=== PATIENT | male | born 1945 | race Caucasian/White ===

== ENCOUNTER 2018-08-16 06:27 | Inpatient (IN) ==
[2018-08-16] MEDS ORDERED: Ondansetron 4 MG/2 ML VIAL IVP ONE ×2 (06:44→17:58)
--- NOTE | 2018-08-16 06:48 | Emergency Department Note ---
Disposition Clinical Impression: Kidney stone on left side UTI (urinary tract infection) Qualifiers: Urinary tract infection type: site unspecified Hematuria presence: with hematuria Qualified Code(s): N39.0 - Urinary tract infection, site not specified; R31.9 - Hematuria, unspecified Acute renal failure Qualifiers: Acute renal failure type: unspecified Qualified Code(s): N17.9 - Acute kidney failure, unspecified Disposition: Admitted As Inpatient Condition: Good Referrals: NONE,PCP [Primary Care Provider] - Forms: ED Satisfaction Letter, Work/School Release General Adult HPI - General Chief complaint: ED Abdominal Pain Stated complaint: left side abdominal pain hx of kidney stones Time Seen by Provider: 08/16/18 06:31 Source: patient Limitations: no limitations Nursing Notes Reviewed: Yes Vital Signs Reviewed: Yes - History of Present Illness HPI Narrative: 73-year-old male presents with hematuria and left abdominal pain. He noticed some blood in urine a week ago. He started left flank and abdominal pain last night. He felt nausea and vomited once this morning. Pt also reported decreasing urine out put. Not chills and fever. Pt has history of kidney stone. Not sure when was last time. He made appointment with Dr. Denney in Thursday. Patient has a history of diabetes and Atrovent fibrillation and sciatica. Patient is on blood thinner Xarelto. Patient took a one dose of hydrocodone one hour before came to ED. Onset (ago): week(s) (1) Location: abdomen, left Pain Scale: 8 - Related Data Home Medications Medication Instructions Recorded Confirmed Alfuzosin HCl [Uroxatral] 10 mg PO DAILY 12/23/14 08/24/15 Carvedilol [Coreg] 12.5 mg PO DAILY 12/23/14 08/24/15 Citalopram [CeleXA] 10 mg PO DAILY 12/23/14 08/24/15 Ezetimibe [Zetia] 10 mg PO DAILY 12/23/14 08/24/15 Ferrous Sulfate 325 mg PO DAILY 12/23/14 08/24/15 HYDROcodone/Acet 5/325 mg [[place] 1 tab PO Q4HR PRN 12/23/14 08/24/15 5-325 mg] Insulin DETEMIR [Levemir] 20 unit SQ QAM 12/23/14 08/24/15 Lisinopril [Zestril] 5 mg PO DAILY 12/23/14 08/24/15 Potassium Chloride 15 meq PO Q8HR 12/23/14 08/24/15 Rivaroxaban [Xarelto] 20 mg PO QPM 12/23/14 08/24/15 [place] Oil/[place]-3 Fatty Acids 2,400 mg PO BID 12/23/14 08/24/15 [Fish Oil 500 mg Softgel] Finasteride [Proscar] 5 mg PO QPM 03/23/15 08/24/15 Insulin LISPRO [HumaLOG] 0 - 50 units SQ TIDWM 03/23/15 08/24/15 Previous Rx's Medication Instructions Recorded OxyCODONE/APAP 5/325 [Percocet 1 each PO Q6HR PRN #12 tablet 01/15/16 5/325 MG] Lidocaine Patch [Lidoderm 5% patch] 1 each TP DAILY #10 adh..patch 03/29/18 Allergies Allergy/AdvReac Type Severity Reaction Status Date / Time adhesive tape Allergy Rash Verified 02/21/15 18:14 atorvastatin [From Lipitor] Allergy Dizziness Verified 12/22/14 21:22 Iodinated Contrast- Oral and Allergy Difficulty Verified 02/21/15 18:14 IV Dye Breathing [Iodinated Contrast Media - IV Dye] Constitutional: Denies: fever, chills Eyes: Denies: eye pain ENT ED: Denies: ear pain Cardiovascular: Denies: chest pain Respiratory: Denies: cough Gastrointestinal: Reports: abdominal pain, nausea Genitourinary: Denies: urgency Musculoskeletal: Reports: back pain Integumentary: Denies: rash Neurological: Denies: headache Psychiatric: Denies: anxiety Endocrine: Denies: fatigue Hematological/Lymphatic: Denies: easy bleeding Allergic/Immunologic: Denies: facial swelling Past Medical History - Past Medical History Medical history: Reports: CVA, DVT, diabetes, hyperlipidemia, hypertension, kidney stones, TIA Surgical history: Reports: appendectomy, bariatric surgery, cholecystectomy, herniorrhaphy, orthopedic, other Psychiatric history: Reports: no psych history - Social History Smoking Status: Never smoker Smokeless Tobacco Status: No Alcohol use: Reports: none Drug use: Reports: none Physical Exam - General Limitations: no limitations General appearance: alert, in no apparent distress - Head Head exam: atraumatic - Eye Eye exam: Present: normal appearance - ENT ENT exam: normal exam - Neck Neck exam: Present: normal inspection - Chest Chest inspection: Present: normal inspection - Respiratory Respiratory exam: Present: normal lung sounds bilaterally - Cardiovascular Cardiovascular exam: Present: regular rate - Abdominal Exam Abdominal exam: Present: soft, tenderness Abdominal tenderness: Present: LUQ - Extremities Exam Extremities exam: Present: normal inspection, full ROM. Absent: tenderness - Back Exam Back exam: Present: normal inspection, CVA tenderness (L) - Neurological Exam Neurological exam: Present: alert, oriented X3 - Psychiatric Psychiatric exam: Present: normal affect - Skin Skin exam: Present: warm, intact Course Vital Signs Temperature 97.1 F L 08/16/18 06:32 Pulse Rate 77 08/16/18 06:32 Respiratory Rate 18 08/16/18 06:32 Blood Pressure 145/81 08/16/18 06:32 O2 Sat by Pulse Oximetry 100 08/16/18 06:32 Temperature 97.1 F L 08/16/18 06:32 Pulse Rate 77 08/16/18 06:32 Respiratory Rate 18 08/16/18 06:32 Blood Pressure 145/81 08/16/18 06:32 O2 Sat by Pulse Oximetry 100 08/16/18 06:32 Oxygen Delivery Oxygen Delivery Room Air Medical Decision Making - [facility] Narrative Medical decision making narrative: 73-year-old male history of kidney stone, A-fib, diabetes, sciatica presents wit h hematuria and left flank pain. Patient reported a hematuria for a week started left flank and upper abdominal pain yesterday. Nausea and vomiting this morning. No chills and fever. Physical exam: Afebrile, abdomen soft, left upper quadrant tender to palpation, left CVA tender to percussion. Abdomen CT indicated a 47 mm kidney stone in left distal urethral. UA indicated large amount of blood and moderate leukocyte. Labs: White cell normal, cr. 2.[address] Shukla. He suggest to admit patient to medical floor and NPO from now, possible surgery. Blood culture, antibiotics and IV fluids started in ED. Patient will be admitted to hospital for kidney stone, UTI, acute renal injury. Dr. Bowen has seen the patient and agrees the above plan. - Lab Data Lab results reviewed: Yes I reviewed the patient's lab results. Result diagrams: 08/16/18 06:42 08/16/18 06:42 Lab Results 08/16/18 08/16/18 08/16/18 Range/Units 06:42 06:42 06:56 WBC 10.8 (4.3-11.1) K/mcL RBC 4.04 L (4.19-5.50) M/mcL Hgb 12.2 L (12.9-16.9) g/dL Hct 38.2 (37.5-50.1) % MCV 94.6 (83.0-100.0) fL MCH 30.2 (28.0-33.3) pg MCHC 31.9 (31.6-35.5) g/dL RDW 16.2 H (11.5-14.5) % Plt Count 242 (140-400) K/mcL MPV 11.1 (9.4-12.4) fL Immature Gran % 0.4 (0-4) % Seg Neutrophils % 45.3 % Lymphocytes % 43.9 % Monocytes % 7.8 % Eosinophils % 2.0 % Basophils % 0.6 % Neutrophils # 4.9 (1.6-8.9) K/mcL Lymphocytes # 4.7 H (0.6-4.6) K/mcL Monocytes # 0.8 (0.0-1.3) K/mcL Eosinophils # 0.2 (0.0-0.6) K/mcL Basophils # 0.1 (0.0-0.2) K/mcL Sodium 137 (136-145) mEq/L Potassium 5.1 (3.5-5.1) mEq/L Chloride 108 H (98-107) mEq/L Carbon Dioxide 20 L (23-29) mEq/L BUN 30 H (8-23) mg/dL Creatinine 2.22 H (0.70-1.30) mg/dL Est GFR ( Amer) 35 L (> 60) Est GFR (Non-Af Amer) 29 L (> 60) BUN/Creatinine Ratio 14 (6-26) Glucose 144 H (70-105) mg/dL Calculated Osmolality 293 (280-300) Calcium 9.0 (8.6-10.3) mg/dL Total Bilirubin 0.5 (0.3-1.0) mg/dL AST 18 (13-39) Units/L ALT 10 (7-52) Units/L Alkaline Phosphatase 84 (34-104) Units/L Serum Total Protein 6.5 (6.4-8.9) g/dL Albumin 3.7 (3.5-5.7) g/dL Globulin 2.8 (2.4-3.5) g/dL Albumin/Globulin Ratio 1.3 (1.1-2.2) Lipase < 3 L (11-82) Units/L Urine Color Yellow (Yellow) Urine Clarity Cloudy A (Clear) Urine pH 5.5 (5.0-8.0) pH Units Ur Specific [place] 1.016 (1.010-1.025) Urine Protein Negative (Neg-Trace) mg/dL Urine Glucose (UA) Normal (Normal) mg/dL Urine Ketones Negative (Negative) mg/dL Urine Blood Large H (Negative) Urine Nitrite Negative (Negative) Urine Bilirubin Negative (Negative) Urine Urobilinogen Normal (Normal) mg/dL Ur Leukocyte Esterase Moderate H (Negative) Urine Microscopic RBC 15-30 H (0-3) per hpf Urine Microscopic WBC 15-30 H (0-3) per hpf Ur Squamous Epith Cells Moderate H (None-Few) per lpf Urine Bacteria None Seen (None-Few) per hpf Hyaline Casts None Seen (None-Few) per lpf Ur Culture Indicated? YES A (NO) - Radiology Data Radiology results reviewed: Yes I reviewed the patient's radiology results. TECHNIQUE: CT of the abdomen and pelvis was performed without the administration of intravenous contrast. Multiplanar reformatted images are provided for review. Dose modulation, iterative reconstruction, and/or weight based adjustment of the mA/kV was utilized to reduce the radiation dose to as low as reasonably achievable. COMPARISON: Abdominal/pelvic CT, 08/11/2013 HISTORY: ORDERING SYSTEM PROVIDED HISTORY: left flank pain 2 week history of hematuria and pain on the left side. History of stones. Acute symptoms, initial evaluation. FINDINGS: The visualized lung bases are clear. The visualized cardiac and posterior mediastinal structures are unremarkable. Within the abdomen, the liver, spleen, pancreas and adrenal glands are within normal limits. Postsurgical changes seen involving the stomach likely related to gastric bypass. Cholecystectomy has been performed. No obvious free fluid, free air or lymphadenopathy is identified. The abdominal aorta is normal in caliber with minor atherosclerotic calcifications. There is mild left-sided hydronephrosis and hydroureter. There is a distal left ureteral stone seen on image 217 measuring 4 x 7 mm. No right-sided hydronephrosis, hydroureter or ureterolithiasis. There are approximately 3 punctate 1 mm nonobstructing right kidney stones. There are approximately 5 punctate 1-2 mm nonobstructing left kidney stones. Within the pelvis, the urinary bladder is within normal limits. Evaluation of the pelvis is limited by beam hardening artifact from right total hip arthroplasty. No gross abnormality of the prostate or seminal vesicles is identified. The appendix is not clearly visualized but no focal inflammatory changes are seen near the cecum to suggest acute appendicitis. CT/CT abd pelvis wo no iv no oral IMPRESSION: 4 x 7 mm distal left ureteral stone with moderate left-sided hydroureteronephrosis. Multiple 1-2 mm nonobstructing bilateral kidney stones are also identified as described above. Incidental findings include postsurgical changes involving the stomach, previous cholecystectomy, minor atherosclerotic abdominal aortic calcification and previous right total hip arthroplasty. D/ / Jose Brown MD / Jose Brown MD Interpreting Provider: Jose Brown MD
[2018-08-16] MEDS ORDERED: Ketorolac 15 MG/ML VIAL IVP ONE (06:57)
[2018-08-16 07:04] LABS: Basophils # 0.1 K/mcL (0.0-0.2); Basophils % 0.6 %; Eosinophils # 0.2 K/mcL (0.0-0.6); Hematocrit 38.2 % (37.5-50.1); Hemoglobin 12.2 g/dL (12.9-16.9); Immature Granulocytes % 0.4 % (0-4); Lymphocytes # 4.7 K/mcL (0.6-4.6); Lymphocytes % 43.9 %; Mean Corpuscular HGB Conc 31.9 g/dL (31.6-35.5); Mean Corpuscular Hemoglobin 30.2 pg (28.0-33.3); Mean Corpuscular Volume 94.6 fL (83.0-100.0); Mean Platelet Volume 11.1 fL (9.4-12.4); Monocytes # 0.8 K/mcL (0.0-1.3); Monocytes % 7.8 %; Neutrophils # 4.9 K/mcL (1.6-8.9); Platelet Count 242 K/mcL (140-400); Red Blood Count 4.04 M/mcL (4.19-5.50); Red Cell Distribution Width 16.2 % (11.5-14.5); Segmented Neutrophils % 45.3 %
[2018-08-16 07:17] LABS: Bilirubin,Urine Negative (Negative); Blood,Urine Large (Negative); Clarity,Urine Cloudy (Clear); Color,Urine Yellow (Yellow); Glucose,Urine (UA) Normal (Normal); Ketones,Urine Negative (Negative); Leukocyte Esterase,Urine Moderate (Negative); Nitrite,Urine Negative (Negative); PH,Urine 5.5 pH Units (5.0-8.0); Protein,Urine Negative (Neg-Trace); Specific Gravity,Urine 1.016 (1.010-1.025); Urobilinogen,Urine Normal (Normal)
[2018-08-16 07:20] LABS: Bacteria,Urine None Seen per hpf (None-Few); Hyaline Casts,Urine None Seen per lpf (None-Few); RBC,Urine 15-30 per hpf (0-3); Squamous Epithelial Cell,Urine Moderate per lpf (None-Few); WBC,Urine 15-30 per hpf (0-3)
[2018-08-16 07:21] LABS: Alanine Aminotransferase 10 Units/L (7-52); Albumin 3.7 g/dL (3.5-5.7); Albumin/Globulin Ratio 1.3 (1.1-2.2); Alkaline Phosphatase 84 Units/L (34-104); Aspartate Amino Transferase 18 Units/L (13-39); BUN/Creatinine Ratio 14 (6-26); Bilirubin,Total 0.5 mg/dL (0.3-1.0); Blood Urea Nitrogen 30 mg/dL (8-23); Carbon Dioxide 20 mEq/L (23-29); Chloride 108 mEq/L (98-107); Globulin 2.8 g/dL (2.4-3.5); Glucose 144 mg/dL (70-105); Lipase < 3 Units/L (11-82); Osmolality,Calculated 293 (280-300); Potassium 5.1 mEq/L (3.5-5.1); Sodium 137 mEq/L (136-145); Total Protein 6.5 g/dL (6.4-8.9); eGFR For Non-African Americans 29 (> 60)
--- NOTE | 2018-08-16 07:24 | Emergency Department Note ---
Disposition Clinical Impression: Left flank pain Disposition: Still a Patient Forms: ED Satisfaction Letter, Work/School Release General Adult HPI - General Chief complaint: ED Abdominal Pain Stated complaint: left side abdominal pain hx of kidney stones Time Seen by Provider: 08/16/18 06:31 Source: patient Limitations: no limitations Nursing Notes Reviewed: Yes Vital Signs Reviewed: Yes - History of Present Illness HPI Narrative: ED attending attestation note: I examined this patient and my medical decision-making was reviewed with the emergency nurse practitioner ADELA ABBOTT. I agree with the documented findings, disposition and treatment plan as described except to the extent set forth below. Briefly: 71-year-old 1 week of left-sided flank pain intermittent hematuria had a kidney stone but does remember the last time abdomen surgically benign afebrile with stable vital signs is afebrile. Patient getting noncontrast abdominal pelvic CT to exclude nephrolithiasis number surgical intra-abdominal pathology. Patient was given parenteral Toradol. at bedside ED course has been explained questions answered. Disposition pending. Location: abdomen, left Pain Scale: 8 - Related Data Home Medications Medication Instructions Recorded Confirmed Alfuzosin HCl [Uroxatral] 10 mg PO DAILY 12/23/14 08/24/15 Carvedilol [Coreg] 12.5 mg PO DAILY 12/23/14 08/24/15 Citalopram [CeleXA] 10 mg PO DAILY 12/23/14 08/24/15 Ezetimibe [Zetia] 10 mg PO DAILY 12/23/14 08/24/15 Ferrous Sulfate 325 mg PO DAILY 12/23/14 08/24/15 HYDROcodone/Acet 5/325 mg [[place] 1 tab PO Q4HR PRN 12/23/14 08/24/15 5-325 mg] Insulin DETEMIR [Levemir] 20 unit SQ QAM 12/23/14 08/24/15 Lisinopril [Zestril] 5 mg PO DAILY 12/23/14 08/24/15 Potassium Chloride 15 meq PO Q8HR 12/23/14 08/24/15 Rivaroxaban [Xarelto] 20 mg PO QPM 12/23/14 08/24/15 [place] Oil/[place]-3 Fatty Acids 2,400 mg PO BID 12/23/14 08/24/15 [Fish Oil 500 mg Softgel] Finasteride [Proscar] 5 mg PO QPM 11/13/15 04/15/16 Insulin LISPRO [HumaLOG] 0 - 50 units SQ TIDWM 03/23/15 08/24/15 Previous Rx's Medication Instructions Recorded OxyCODONE/APAP 5/325 [Percocet 1 each PO Q6HR PRN #12 tablet 01/15/16 5/325 MG] Lidocaine Patch [Lidoderm 5% patch] 1 each TP DAILY #10 adh..patch 03/29/18 Allergies Allergy/AdvReac Type Severity Reaction Status Date / Time adhesive tape Allergy Rash Verified 02/21/15 18:14 atorvastatin [From Lipitor] Allergy Dizziness Verified 12/22/14 21:22 Iodinated Contrast- Oral and Allergy Difficulty Verified 02/21/15 18:14 IV Dye Breathing [Iodinated Contrast Media - IV Dye] Constitutional: Denies: fever, chills Eyes: Denies: eye pain ENT ED: Denies: ear pain Cardiovascular: Denies: chest pain Respiratory: Denies: cough Gastrointestinal: Reports: abdominal pain, nausea Genitourinary: Denies: urgency Musculoskeletal: Reports: back pain Integumentary: Denies: rash Neurological: Denies: headache Psychiatric: Denies: anxiety Endocrine: Denies: fatigue Hematological/Lymphatic: Denies: easy bleeding Allergic/Immunologic: Denies: facial swelling Past Medical History - Past Medical History Medical history: Reports: CVA, DVT, diabetes, hyperlipidemia, hypertension, kidney stones, TIA Surgical history: Reports: appendectomy, bariatric surgery, cholecystectomy, herniorrhaphy, orthopedic, other Psychiatric history: Reports: no psych history - Social History Smoking Status: Never smoker Smokeless Tobacco Status: No Alcohol use: Reports: none Drug use: Reports: none Physical Exam - General Limitations: no limitations General appearance: alert, in no apparent distress Course Vital Signs Temperature 97.1 F L 08/16/18 06:32 Pulse Rate 77 08/16/18 06:32 Respiratory Rate 18 08/16/18 06:32 Blood Pressure 145/81 08/16/18 06:32 O2 Sat by Pulse Oximetry 100 08/16/18 06:32 Temperature 97.1 F L 08/16/18 06:32 Pulse Rate 77 08/16/18 06:32 Respiratory Rate 18 08/16/18 06:32 Blood Pressure 145/81 08/16/18 06:32 O2 Sat by Pulse Oximetry 100 08/16/18 06:32 Oxygen Delivery Oxygen Delivery Room Air Medical Decision Making - Lab Data Result diagrams: 08/16/18 06:42 08/16/18 06:42 Lab Results 08/16/18 08/16/18 08/16/18 Range/Units 06:42 06:42 06:56 WBC 10.8 (4.3-11.1) K/mcL RBC 4.04 L (4.19-5.50) M/mcL Hgb 12.2 L (12.9-16.9) g/dL Hct 38.2 (37.5-50.1) % MCV 94.6 (83.0-100.0) fL MCH 30.2 (28.0-33.3) pg MCHC 31.9 (31.6-35.5) g/dL RDW 16.2 H (11.5-14.5) % Plt Count 242 (140-400) K/mcL MPV 11.1 (9.4-12.4) fL Immature Gran % 0.4 (0-4) % Seg Neutrophils % 45.3 % Lymphocytes % 43.9 % Monocytes % 7.8 % Eosinophils % 2.0 % Basophils % 0.6 % Neutrophils # 4.9 (1.6-8.9) K/mcL Lymphocytes # 4.7 H (0.6-4.6) K/mcL Monocytes # 0.8 (0.0-1.3) K/mcL Eosinophils # 0.2 (0.0-0.6) K/mcL Basophils # 0.1 (0.0-0.2) K/mcL Sodium 137 (136-145) mEq/L Potassium 5.1 (3.5-5.1) mEq/L Chloride 108 H (98-107) mEq/L Carbon Dioxide 20 L (23-29) mEq/L BUN 30 H (8-23) mg/dL Creatinine 2.22 H (0.70-1.30) mg/dL Est GFR ( Amer) 35 L (> 60) Est GFR (Non-Af Amer) 29 L (> 60) BUN/Creatinine Ratio 14 (6-26) Glucose 144 H (70-105) mg/dL Calculated Osmolality 293 (280-300) Calcium 9.0 (8.6-10.3) mg/dL Total Bilirubin 0.5 (0.3-1.0) mg/dL AST 18 (13-39) Units/L ALT 10 (7-52) Units/L Alkaline Phosphatase 84 (34-104) Units/L Serum Total Protein 6.5 (6.4-8.9) g/dL Albumin 3.7 (3.5-5.7) g/dL Globulin 2.8 (2.4-3.5) g/dL Albumin/Globulin Ratio 1.3 (1.1-2.2) Lipase < 3 L (11-82) Units/L Urine Color Yellow (Yellow) Urine Clarity Cloudy A (Clear) Urine pH 5.5 (5.0-8.0) pH Units Ur Specific [place] 1.016 (1.010-1.025) Urine Protein Negative (Neg-Trace) mg/dL Urine Glucose (UA) Normal (Normal) mg/dL Urine Ketones Negative (Negative) mg/dL Urine Blood Large H (Negative) Urine Nitrite Negative (Negative) Urine Bilirubin Negative (Negative) Urine Urobilinogen Normal (Normal) mg/dL Ur Leukocyte Esterase Moderate H (Negative) Urine Microscopic RBC 15-30 H (0-3) per hpf Urine Microscopic WBC 15-30 H (0-3) per hpf Ur Squamous Epith Cells Moderate H (None-Few) per lpf Urine Bacteria None Seen (None-Few) per hpf Hyaline Casts None Seen (None-Few) per lpf Ur Culture Indicated? YES A (NO)
[2018-08-16] MEDS ORDERED: 0.9 % Sodium Chloride 500 ML IVC ONE (07:45)
[2018-08-16] MEDS ORDERED: *HR* HYDROcodone/Acet 5/325 mg TABLET PO ONE (08:09)
[2018-08-16] MEDS ORDERED: cefTRIAXone 1,000 MG in 0.9 % Sodium Chloride Mini Bag 100 ML IVPB ONE (08:27)
--- NOTE | 2018-08-16 09:15 | Internal Med History&Physical ---
Date of Encounter: 08/16/18 Time of Encounter: 09:14 Internal Medicine - H&P: HPI Chief complaint: left abdominal pain History of present illness: 73-year-old male with history of kidney stones who presents with hematuria and left abdominal pain radiating to his left groin that started last night. He also C/O nausea and vomiting this am and reports blood in urine for several days now. CT shows a 7 mm distal left ureteral calculus hydronephrosis. Urology was consulted for further evaluation and patient was admitted for further evaluation. Past Med Surg Social Fam HX - Past Medical History Medical history: CVA, DVT, diabetes, hyperlipidemia, hypertension, kidney stones, TIA Additional medical history: Current DVT in right leg Psychiatric history: no psych history - Past Surgical History Surgical History: appendectomy, bariatric surgery, cholecystectomy, herniorrhaphy, orthopedic, other Additional surgical history: sigmoidectomy. kidney stone removal - Social History Smoking Status: Never smoker Smokeless Tobacco Status: No Alcohol use: none Drug use: none - Family History Mother Adopted: No Family Member Ethnicity: Non- Living Status: Hx Family Cardiac Disorders: Yes Hx Family Respiratory Disorders: Yes Hx Family Cancer: No Hx Family Endocrine Disorder: Yes Hx Family Neuromuscular Disorders: No Hx Family Neurologic Disorders: Yes Hx Family HEENT Disorders: No Hx Family Autoimmune Disorders: No Internal Medicine - H&P: Meds Ezetimibe [Zetia] 10 mg PO DAILY 12/23/14 [History] Ferrous Sulfate 325 mg PO DAILY 12/23/14 [History] HYDROcodone/Acet 5/325 mg [[place] 5-325 mg] 1 tab PO Q6H PRN 12/23/14 [History] Insulin DETEMIR [Levemir] 30 unit SQ BID 12/23/14 [History] Rivaroxaban [Xarelto] 20 mg PO QPM 12/23/14 [History] [place] Oil/[place]-3 Fatty Acids [Fish Oil 500 mg Softgel] 2,400 mg PO BID 12/23/14 [History] Finasteride [Proscar] 5 mg PO QPM 03/23/15 [History] Ciprofloxacin HCl [Cipro] 500 mg PO DAILY 08/16/18 [History] Ciprofloxacin [Cipro] 500 mg PO BID 3 Days #6 tablet 08/16/18 [Rx] Duloxetine HCl [Cymbalta] 60 mg PO DAILY 08/16/18 [History] Insulin LISPRO [Humalog Kwikpen U-100] 5 - 20 unit SQ TID 08/16/18 [History] Lidocaine Patch [Lidoderm 5% patch] 1 each TP DAILY PRN 08/16/18 [History] Metoprolol [Lopressor] 12.5 mg PO BID 08/16/18 [History] Oxybutynin [Ditropan] 5 mg PO TID PRN #20 tablet 08/16/18 [Rx] Tamsulosin [Flomax] 0.4 mg PO DAILY 08/16/18 [History] Allergy/AdvReac Type Severity Reaction Status Date / Time adhesive tape Allergy Rash Verified 02/21/15 18:14 atorvastatin [From Lipitor] Allergy Dizziness Verified 12/22/14 21:22 Iodinated Contrast- Oral and Allergy Difficulty Verified 02/21/15 18:14 IV Dye Breathing [Iodinated Contrast Media - IV Dye] All Systems PM: A 10-system review of systems was performed and is negative for pertinent findings except as documented above in the HPI. - Constitutional Constitutional: no chills, no fever(s), no night sweats - EENT Eyes: no change in vision, no discharge, no pain, no photophobia Ears: no ear discharge, no ear pain, no tinnitus Nose, mouth and throat: no dysphagia, no nasal discharge, no neck pain, no sore throat - Cardiovascular Cardiovascular ROS IM: no chest pain, no diaphoresis, no dyspnea, no lightheadedness, no palpitations, no syncope - Respiratory Respiratory: no cough, no dyspnea, no wheezing, no excessive phlegm production - Gastrointestinal Gastrointestinal: abdominal pain, nausea, vomiting, no diarrhea, no hematemesis, no hematochezia, no melena - Genitourinary Genitourinary ROS male: as per HPI - Musculoskeletal Musculoskeletal ROS IM: no numbness, no tingling - Integumentary Integumentary IM: no rash, no unusual bruising - Neurological Neurological ROS: no confusion, no convulsions, no focal weakness, no numbness, no tingling, no tremor(s) - Hematologic/Lymphatic Hematologic/Lymphatic: no easy bruising - Constitutional Vitals: Temp Pulse Resp BP Pulse Ox 97.1 F L 77 18 145/81 100 08/16/18 06:32 08/16/18 06:32 08/16/18 06:32 08/16/18 06:32 08/16/18 06:32 General appearance: Present: A&O X 3 Exam: As below - Head Head exam: Present: atraumatic, normocephalic - Eye Eye exam: Present: PERRL, conjuntiva pink, sclera anicteric Pupils: Present: PERRL - Neck Neck exam general surgery: Present: supple, trachea midline. Absent: lymphadenopathy - Respiratory Respiratory exam: Present: CTAB. Absent: accessory muscle use, rales, rhonchi, wheezes - Cardiovascular Cardiovascular exam: Present: RRR, +S1, +S2. Absent: diastolic murmur, gallop, rubs, systolic murmur - GI/Abdominal GI/Abdominal exam: Present: normal bowel sounds, soft, no peritoneal signs. Absent: distended, tenderness - Extremities Exam Extremities exam: Present: warm, radial pulses palpable and symmetrical. Absent: calf tenderness, cyanotic, pedal edema - Neurological Exam Neurological exam: Present: CN II-XII intact, oriented X3, no focal deficits. Absent: pronater drift, facial droop, speech deficit - Skin Skin exam: Present: dry, intact Internal Med - H&P Results - Labs CBC & Chem 7: 08/17/18 04:47 08/16/18 06:42 Labs: Short CBC 08/16/18 Range/Units 06:42 WBC 10.8 (4.3-11.1) K/mcL Hgb 12.2 L (12.9-16.9) g/dL Hct 38.2 (37.5-50.1) % Plt Count 242 (140-400) K/mcL Neutrophils # 4.9 (1.6-8.9) K/mcL BMP 08/16/18 06:42 Sodium 137 Potassium 5.1 Chloride 108 H Carbon Dioxide 20 L BUN 30 H Creatinine 2.22 H Glucose 144 H Calcium 9.0 Liver Function 08/16/18 Range/Units 06:42 Total Bilirubin 0.5 (0.3-1.0) mg/dL AST 18 (13-39) Units/L ALT 10 (7-52) Units/L Alkaline Phosphatase 84 (34-104) Units/L Albumin 3.7 (3.5-5.7) g/dL Urine 08/16/18 Range/Units 06:56 Urine Color Yellow (Yellow) Urine Clarity Cloudy A (Clear) Urine pH 5.5 (5.0-8.0) pH Units Ur Specific [place] 1.016 (1.010-1.025) Urine Protein Negative (Neg-Trace) mg/dL Urine Glucose (UA) Normal (Normal) mg/dL - Impressions ITS Impressions Abdomen/Pelvis CT 08/16/18 07:00 IMPRESSION: 4 x 7 mm distal left ureteral stone with moderate left-sided hydroureteronephrosis. Multiple 1-2 mm nonobstructing bilateral kidney stones are also identified as described above. Incidental findings include postsurgical changes involving the stomach, previous cholecystectomy, minor atherosclerotic abdominal aortic calcification and previous right total hip arthroplasty. D/ / Jose Brown MD / Jose Brown MD Interpreting Provider: Jose Brown MD - Assessment and Plan (1) Hydronephrosis Current Visit: Yes Status: Acute Assessment and plan: Secondary to distal left ureteral calculus. Urology was consulted for possible Cystoscopy and stent placement Qualifiers: Hydronephrosis type: with renal calculous obstruction Qualified Code(s): N13.2 - Hydronephrosis with renal and ureteral calculous obstruction (2) Ureteral calculus Current Visit: Yes Status: Acute Assessment and plan: 7mm distal left ureteral stone with hydronephrosis was noted , urology was consulted for possible ureteroscopy laser lithotripsy with stenting. (3) HTN (hypertension) Current Visit: No Status: Chronic Assessment and plan: We will continue home meds Qualifiers: Hypertension type: essential hypertension Qualified Code(s): I10 - Essential (primary) hypertension (4) Anticoagulation adequate Current Visit: Yes Status: Acute Assessment and plan: Patient on his Plavix, has history of two TIA and on Xarelto. As per urology , ok to resume post surgical intervention. (5) UTI (urinary tract infection) Current Visit: Yes Status: Acute Assessment and plan: urine with positive leukocyte esterase Negative nitrite. Urine was sent for culture. We will cont ABS and adjust regimen as per Cx results Qualifiers: Urinary tract infection type: site unspecified Hematuria presence: with hematuria Qualified Code(s): N39.0 - Urinary tract infection, site not specified; R31.9 - Hematuria, unspecified (6) Acute renal failure Current Visit: Yes Status: Acute Assessment and plan: Most likely 2/2 obstructive uropathy, urology was consulted as above, IV hydration , renal dosing of meds Qualifiers: Acute renal failure type: unspecified Qualified Code(s): N17.9 - Acute kidney failure, unspecified (7) Metabolic acidosis Current Visit: Yes Status: Acute Assessment and plan: Most likely could lay secondary to impaired kidney function (8) DVT prophylaxis Current Visit: Yes Status: Acute Assessment and plan: The patient has history of two TIA and on Xarelto. - Time Spent With Patient Total time spent is greater than 50% in coordination of care (as documented) at patient's floor/unit and/or counseling patient:
[2018-08-16] MEDS ORDERED: Naloxone 0.4 MG/ML INJ IVP PRN ×2 (11:10→19:23)
[2018-08-16] MEDS ORDERED: *HR* HYDROcodone/Acet 5/325 mg TABLET PO PRN (11:10)
[2018-08-16] MEDS ORDERED: Ondansetron 4 MG/2 ML VIAL IVP PRN ×2 (11:10→19:23)
[2018-08-16] MEDS ORDERED: Acetaminophen 325 MG TABLET PO PRN ×2 (11:10→19:23)
[2018-08-16] MEDS ORDERED: 0.9 % Sodium Chloride 1,000 ML IVC SCH ×2 (11:15→19:23)
[2018-08-16] MEDS ORDERED: OXYCODONE Oral CONC 10 MG/0.5 ML ORAL.SYG SL PRN ×2 (16:12→19:23)
--- NOTE | 2018-08-16 16:12 | Urology - Consult Note ---
Date of Encounter: 08/16/18 Time of Encounter: 16:09 - Assessment and Plan (1) Hydronephrosis Current Visit: Yes Status: Acute Assessment and plan: Secondary to distal left ureteral calculus. Anticipate spontaneous resolution post surgical address of stone. Will need diversion by stent placement. Plan: Cystoscopy left double-J stent placement Qualifiers: Hydronephrosis type: with renal calculous obstruction Qualified Code(s): N13.2 - Hydronephrosis with renal and ureteral calculous obstruction (2) Ureteral calculus Current Visit: Yes Status: Acute Assessment and plan: 7 mm distal left ureteral catheter was with hydronephrosis significant pain leading to the ER visit and admission. Discussed risks benefits and alternatives of ureteroscopy laser lithotripsy with stenting. Plan: Add on to or schedule today for ureteroscopy holmium laser lithotripsy. High risk procedure due to active anticoagulation (3) Anticoagulation adequate Current Visit: Yes Status: Acute Assessment and plan: Patient on his Plavix. Last taken yesterday. This is a significant increase in the risk for ureteroscopy holmium laser lithotripsy. Plan: Okay to resume adequate ablation post surgical intervention. (4) UTI (urinary tract infection) Current Visit: Yes Status: Acute Assessment and plan: Questionable urine with positive leukocyte esterase and hemoglobin. Negative nitrite. Urine was sent for culture. Plan: Proceed with urinary intervention. Long-term antibiotic culture Qualifiers: Urinary tract infection type: site unspecified Hematuria presence: with hematuria Qualified Code(s): N39.0 - Urinary tract infection, site not specified; R31.9 - Hematuria, unspecified (5) Acute renal failure Current Visit: No Status: Inactive Assessment and plan: Secondary to obstructing stone. Plan: Add on for urgent urinary diversion Qualifiers: Acute renal failure type: unspecified Qualified Code(s): N17.9 - Acute kidney failure, unspecified Urology CN:HPI Consult date: 08/16/18 Reason for consult Urology: Hydronephrosis Requesting physician: Chen Gruber History of present illness: 73-year-old gentleman with a long-standing history of nephrolithiasis. Reports at least 16 episodes of nephrolithiasis over the years. He has had no prior metabolic evaluation. The patient noted some hematuria without significant discomfort a few weeks ago and then severe pain last evening mandating a trip to the emergency department. The patient was evaluated diversion department including CT which shows a 7 mm distal left ureteral calculus hydronephrosis. I was called by the ER staff regarding disposition and management. The patient is afebrile and vital signs are stable. He has no signs of sepsis. The patient's urine is not grossly infected. Patient denies exacerbating or remitting factors to his pain. He said some intermittent nausea. No change in lower urinary tract symptoms. Patient currently comfortable. Pain waxing and waning up to severe intensity. Past Med Surg Social Fam HX - Past Medical History Medical history: CVA, DVT, diabetes, hyperlipidemia, hypertension, kidney stones, TIA Additional medical history: Current DVT in right leg Psychiatric history: no psych history - Past Surgical History Surgical History: appendectomy, bariatric surgery, cholecystectomy, herniorrhaphy, orthopedic, other Additional surgical history: back surgery x2 - Social History Smoking Status: Never smoker Smokeless Tobacco Status: No Alcohol use: none Drug use: none - Family History Mother Adopted: No Family Member Ethnicity: Non- Living Status: Age at : 83 Cause of : heart Hx Family Cardiac Disorders: Yes Hx Family Respiratory Disorders: Yes Hx Family Cancer: No Hx Family GI Disorders: Yes Hx Family Genitourinary Disorders: Yes Hx Family Endocrine Disorder: Yes Hx Family Musculoskeletal Disorders: No Hx Family Neuromuscular Disorders: No Hx Family Neurologic Disorders: Yes Hx Family HEENT Disorders: No Hx Family Autoimmune Disorders: No Medications and Allergies RX: Alfuzosin HCl [Uroxatral] 10 mg PO DAILY 12/23/14 [History] RX: Citalopram [CeleXA] 10 mg PO DAILY 12/23/14 [History] RX: Ezetimibe [Zetia] 10 mg PO DAILY 12/23/14 [History] RX: Ferrous Sulfate 325 mg PO DAILY 12/23/14 [History] RX: HYDROcodone/Acet 5/325 mg [[place] 5-325 mg] 1 tab PO Q4HR PRN 12/23/14 [History] RX: Insulin DETEMIR [Levemir] 20 unit SQ QAM 12/23/14 [History] RX: Lisinopril [Zestril] 5 mg PO DAILY 12/23/14 [History] RX: Potassium Chloride 15 meq PO Q8HR 12/23/14 [History] RX: Rivaroxaban [Xarelto] 20 mg PO QPM 12/23/14 [History] RX: [place] Oil/[place]-3 Fatty Acids [Fish Oil 500 mg Softgel] 2,400 mg PO BID 12/23/14 [History] RX: Finasteride [Proscar] 5 mg PO QPM 03/23/15 [History] RX: Insulin LISPRO [HumaLOG] 0 - 50 units SQ TIDWM 03/23/15 [History] OxyCODONE/APAP 5/325 [Percocet 5/325 MG] 1 each PO Q6HR PRN #12 tablet 01/15/16 [Rx] Lidocaine Patch [Lidoderm 5% patch] 1 each TP DAILY #10 adh..patch 03/29/18 [Rx] Metoprolol [Lopressor] 12.5 mg PO BID 08/16/18 [History] Allergy/AdvReac Type Severity Reaction Status Date / Time adhesive tape Allergy Rash Verified 02/21/15 18:14 atorvastatin [From Lipitor] Allergy Dizziness Verified 12/22/14 21:22 Iodinated Contrast- Oral and Allergy Difficulty Verified 02/21/15 18:14 IV Dye Breathing [Iodinated Contrast Media - IV Dye] Review of Systems - Constitutional no chills, no fever(s) - EENT Nose, mouth and throat: no dizziness, no headache(s) - Cardiovascular no chest pain, no diaphoresis - Respiratory no cough, no dyspnea - Gastrointestinal abdominal pain, no fecal incontinence - Genitourinary hematuria, no dysuria - Musculoskeletal back pain, no muscle weakness - Integumentary no lesions, no rash - Neurological no confusion, no sensory deficit - Psychiatric no anxiety, no confusion - Hematologic/Lymphatic no easy bleeding, no easy bruising - Allergic/Immunologic no throat swelling, no wheezing Exam Initial Vital Signs Temp Pulse Resp BP Pulse Ox 97.1 F L 77 18 145/81 100 08/16/18 06:32 08/16/18 06:32 08/16/18 06:32 08/16/18 06:32 08/16/18 06:32 - General physical appearance Present: well developed, well nourished, no distress - Eyes Present: PERRL, normal ocular movement - ENT Present: normal nares, normal mucosa - Neck Present: trachea midline - Respiratory Present: normal respiratory effort - Abdomen Abdomen: Present: soft, non tender - Integumentary Present: no rash, no growths - Neurologic Present: normal coordination - Musculoskeletal Present: other (Patient lying when exam performed. Moves all 4 extremities.) Urology Results - Labs 08/16/18 06:42 08/16/18 06:42 Abnormal lab results RBC 4.04 M/mcL (4.19-5.50) L 08/16/18 06:42 Hgb 12.2 g/dL (12.9-16.9) L 08/16/18 06:42 RDW 16.2 % (11.5-14.5) H 08/16/18 06:42 Lymphocytes # 4.7 K/mcL (0.6-4.6) H 08/16/18 06:42 Chloride 108 mEq/L (98-107) H 08/16/18 06:42 Carbon Dioxide 20 mEq/L (23-29) L 08/16/18 06:42 BUN 30 mg/dL (8-23) H 08/16/18 06:42 Creatinine 2.22 mg/dL (0.70-1.30) H 08/16/18 06:42 Est GFR ( Amer) 35 (> 60) L 08/16/18 06:42 Est GFR (Non-Af Amer) 29 (> 60) L 08/16/18 06:42 Glucose 144 mg/dL (70-105) H 08/16/18 06:42 Lipase < 3 Units/L (11-82) L 08/16/18 06:42 Urine Clarity Cloudy (Clear) A 08/16/18 06:56 Urine Blood Large (Negative) H 08/16/18 06:56 Ur Leukocyte Esterase Moderate (Negative) H 08/16/18 06:56 Urine Microscopic RBC 15-30 per hpf (0-3) H 08/16/18 06:56 Urine Microscopic WBC 15-30 per hpf (0-3) H 08/16/18 06:56 Ur Squamous Epith Cells Moderate per lpf (None-Few) H 08/16/18 06:56 Ur Culture Indicated? YES (NO) A 08/16/18 06:56 Diabetes panel 08/16/18 Range/Units 06:42 Sodium 137 (136-145) mEq/L Potassium 5.1 (3.5-5.1) mEq/L Chloride 108 H (98-107) mEq/L Carbon Dioxide 20 L (23-29) mEq/L BUN 30 H (8-23) mg/dL Creatinine 2.22 H (0.70-1.30) mg/dL Glucose 144 H (70-105) mg/dL Calcium 9.0 (8.6-10.3) mg/dL AST 18 (13-39) Units/L ALT 10 (7-52) Units/L Alkaline Phosphatase 84 (34-104) Units/L Albumin 3.7 (3.5-5.7) g/dL Calcium panel 08/16/18 Range/Units 06:42 Calcium 9.0 (8.6-10.3) mg/dL Albumin 3.7 (3.5-5.7) g/dL Pituitary panel 08/16/18 Range/Units 06:42 Sodium 137 (136-145) mEq/L Potassium 5.1 (3.5-5.1) mEq/L Chloride 108 H (98-107) mEq/L Carbon Dioxide 20 L (23-29) mEq/L BUN 30 H (8-23) mg/dL Creatinine 2.22 H (0.70-1.30) mg/dL Glucose 144 H (70-105) mg/dL Calcium 9.0 (8.6-10.3) mg/dL Adrenal panel 08/16/18 Range/Units 06:42 Sodium 137 (136-145) mEq/L Potassium 5.1 (3.5-5.1) mEq/L Chloride 108 H (98-107) mEq/L Carbon Dioxide 20 L (23-29) mEq/L BUN 30 H (8-23) mg/dL Creatinine 2.22 H (0.70-1.30) mg/dL Glucose 144 H (70-105) mg/dL Calcium 9.0 (8.6-10.3) mg/dL Total Bilirubin 0.5 (0.3-1.0) mg/dL AST 18 (13-39) Units/L ALT 10 (7-52) Units/L Alkaline Phosphatase 84 (34-104) Units/L Albumin 3.7 (3.5-5.7) g/dL All other labs normal. - Imaging CT scan - abdomen: image reviewed CT scan - pelvis: image reviewed (CT images reviewed and interpreted independently.) Consult Discharge Plan - Plan Referrals: NONE,PCP [Primary Care Provider] -
[2018-08-16] MEDS ORDERED: *HR* Propofol 200 MG/20 ML VIAL IVP ONE (17:04)
[2018-08-16] MEDS ORDERED: *HR* FentaNYL (PF) 100 MCG/2 ML VIAL ONE (17:04)
[2018-08-16] MEDS ORDERED: *HR* Succinylcholine 200 MG/10 ML VIAL IVP ONE (17:05)
[2018-08-16] MEDS ORDERED: Ondansetron 4 MG/2 ML VIAL ONE (17:06)
[2018-08-16] MEDS ORDERED: Dexamethasone 4 MG/ML VIAL ONE (17:06)
--- NOTE | 2018-08-16 17:27 | Anesthesia Evaluation PreOp ---
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: TIA (X4, LAST 2 YRS AGO), Other (CHRONIC BACK PAIN, SCIATICA) Other Medical History: Renal (ACUTE RENAL INSUFFICIENCY), Diabetes Type II Anesthesia History: No Prior Anesthetic Complications, Past Anesthesia Alcohol Use: none Drug use: none Medications and Allergies Alfuzosin HCl [Uroxatral] 10 mg PO DAILY 12/23/14 [History] Citalopram [CeleXA] 10 mg PO DAILY 12/23/14 [History] Ezetimibe [Zetia] 10 mg PO DAILY 12/23/14 [History] Ferrous Sulfate 325 mg PO DAILY 12/23/14 [History] HYDROcodone/Acet 5/325 mg [[place] 5-325 mg] 1 tab PO Q4HR PRN 12/23/14 [History] Insulin DETEMIR [Levemir] 20 unit SQ QAM 12/23/14 [History] Lisinopril [Zestril] 5 mg PO DAILY 12/23/14 [History] Potassium Chloride 15 meq PO Q8HR 12/23/14 [History] Rivaroxaban [Xarelto] 20 mg PO QPM 12/23/14 [History] [place] Oil/[place]-3 Fatty Acids [Fish Oil 500 mg Softgel] 2,400 mg PO BID 12/23/14 [History] Finasteride [Proscar] 5 mg PO QPM 03/23/15 [History] Insulin LISPRO [HumaLOG] 0 - 50 units SQ TIDWM 03/23/15 [History] OxyCODONE/APAP 5/325 [Percocet 5/325 MG] 1 each PO Q6HR PRN #12 tablet 01/15/16 [Rx] Lidocaine Patch [Lidoderm 5% patch] 1 each TP DAILY #10 adh..patch 03/29/18 [Rx] Metoprolol [Lopressor] 12.5 mg PO BID 08/16/18 [History] Allergy/AdvReac Type Severity Reaction Status Date / Time adhesive tape Allergy Rash Verified 02/21/15 18:14 atorvastatin [From Lipitor] Allergy Dizziness Verified 12/22/14 21:22 Iodinated Contrast- Oral and Allergy Difficulty Verified 02/21/15 18:14 IV Dye Breathing [Iodinated Contrast Media - IV Dye] - Meds/Allergy Pre-op Review Medications Reviewed: Yes Allergies Reviewed: Yes Beta Blockers on Current Med List: No If Beta Blockers taken, Date/Time (Last Dose taken): STOPPED CARVEDILOL FEW MONTHS - HYPOTENSION Anesthesia Results - Labs 08/16/18 06:42 08/16/18 06:42 Laboratory Tests 08/16/18 06:42 Est GFR (Non-Af Amer) 29 L Calcium 9.0 Anesthesia Exam Vital Signs/O2 Sat/Glucose, Most Recent Temp Pulse Resp BP Pulse Ox 97.7 F 66 14 114/66 99 08/16/18 12:45 08/16/18 12:45 08/16/18 12:45 08/16/18 12:45 08/16/18 12:45 Weight: 95 KG, BMI 26 - HEENT Mallampati: I Teeth: Missing, Poor dentition Oral Opening: Greater than 3 - Cardiac Rhythm: Irregular - Pulmonary Breath Sounds: bilateral Clear Respiratory Effort: Symmetrical Anesthesia Assess/Plan ASA Score: 3 Anesthetic Plan: General Monitoring Plan: Standard Monitors Recovery Plan: PACU
[2018-08-16] MEDS ORDERED: Isovue-300 50 ML VIAL ONE (17:43)
[2018-08-16] MEDS ORDERED: *HR* Promethazine 25 MG/ML VIAL IVP PRN (17:58)
[2018-08-16] MEDS ORDERED: Acetaminophen IV 1,000 MG/100 ML INFUS..BTL IVPB ONE (17:58)
[2018-08-16] MEDS ORDERED: *HR* OxyCODONE Immed Rel 5 MG TABLET PO PRN (17:58)
[2018-08-16] MEDS ORDERED: *HR* HYDROmorphone (PF) 1 MG/ML SYRINGE IVP PRN (17:58)
[2018-08-16] MEDS ORDERED: Albuterol 2.5 MG/3 ML NEBULIZER IH ONE (17:58)
[2018-08-16] MEDS ORDERED: EPHEDrine 50 MG/ML VIAL ONE (18:14)
--- NOTE | 2018-08-16 18:35 | Operative Note ---
Date of procedure: 08/16/18 Pre-op diagnosis: Left ureteral calculus Post-op diagnosis: same Procedure: Cystoscopy, left retrograde ureteral pyelography with intraoperative interpretation of radial graphic images in real time by surgeon to facilitate procedure, left ureteroscopy, laser lithotripsy of left ureteral calculus, left double-J stent placement Implants: 6 x 26 left double-J stent Complications: None Anesthesia: GETA Surgeon: Tadeo Shukla Was there an insurance administrative assistant present: No Estimated blood loss (cc): 2 Specimen: None Condition: stable Disposition: PACU Procedure in Detail: Cystoscopy with LEFT Retrograde Pyelography, Intraoperative Interpretation of all Radiographic Images in Real Time by Surgeon (necessary for succesful completion of procedure), Ureteroscopy, Holmium Laser Lithotripsy of Ureteral Calculus, Retrograde Placement of Ureteral Stent under Flouroscopic Guidance: The patient was brought to the operating theater, identified by name, date of and medical record number. He was administered a general anesthetic. The patient was positioned in dorsal lithotomy then prepped and draped in sterile fashion. The cystoscope was inserted into the urethral meatus and advanced toward the bladder under direct visualization. No abnormalities of the urethra were appreciated. No abnormalities of the bladder were appreciated. An open-ended catheter was placed into the ipsilateral ureter and with gentle injection of contrast a retrograde pyelogram was performed. Real-time interpretation of these radiographic images were performed by sharon. Real- time interpretation of images revealed filling defects in the distal mid and proximal ureter. These were consistent with CT findings stone. Additional ureteral filling defects were of indeterminate origin. Based on intraoperative interpretation of these images ureteroscopy was indicated. A Glidewire was passed through the open-ended catheter and into the ipsilateral renal pelvis. The cystoscope and open-ended ureteral catheter were removed leaving the Glidewire in place. Alongside the Glidewire and under direct vision a rigid ureteroscope was advanced through the urethra, bladder and into the ureter. Under direct vision the ureteroscope was advanced in the ureter until the stone was encountered. Once the stone was encountered a 365 holmium laser fiber was obtained and placed on a setting of 0.5 and a rate of 15. The stone was easily fragmented into multiple small pieces which were felt to be of easily passable and non-clinically significant size. Beyond the stone in the distal ureter old organized clot was encountered. This was fragmented with the laser as was initially thought to be stone. The ureteroscope was advanced all the way to the proximal ureter were additional clot was encountered the larger aspect of this clot was also fragmented with the laser. At this point the ureteroscope was removed. Over the existing Glidewire a 6- [place] ureteral stent was placed under fluoroscopic guidance. Once the stent was felt to be in good position the Glidewire was removed. Real-time fluoroscopy confirmed proper stent placement. Patient's bladder was drained of irrigant and this ended the operative procedure. The patient tolerated the procedure well. There are no complications. The patient was awakened in the operating theater, extubated and transferred to recovery in stable condition. Complications: None Findings: Ureteral Calculus EBL: 2ml Specimen: None Implants: ureteral JJ stent Surgeron: Tadeo Shukla MD
--- NOTE | 2018-08-16 18:40 | Urology Progress Note ---
Date of Encounter: 08/16/18 Time of Encounter: 18:38 - Assessment and Plan (1) Hydronephrosis Current Visit: Yes Status: Acute Qualifiers: Hydronephrosis type: with renal calculous obstruction Qualified Code(s): N13.2 - Hydronephrosis with renal and ureteral calculous obstruction (2) Ureteral calculus Current Visit: Yes Status: Acute Assessment and plan: Patient underwent uncomplicated left ureteroscopy with holmium laser lithotripsy of left ureteral calculus and stenting. Patient is okay for discharge to home post procedure from urology standpoint. Prescription for Percocet is attached to chart. Scripts for ciprofloxacin and oxybutynin were sent electronically to pharmacy. My office will call patient to schedule all follow-up. Your admission and medical management of this patient is greatly appreciated. (3) Anticoagulation adequate Current Visit: Yes Status: Acute (4) UTI (urinary tract infection) Current Visit: Yes Status: Acute Qualifiers: Urinary tract infection type: site unspecified Hematuria presence: with hematuria Qualified Code(s): N39.0 - Urinary tract infection, site not specified; R31.9 - Hematuria, unspecified Objective Initial Vital Signs Temp Pulse Resp BP Pulse Ox 97.1 F L 77 18 145/81 100 08/16/18 06:32 08/16/18 06:32 08/16/18 06:32 08/16/18 06:32 08/16/18 06:32 - Labs 08/16/18 06:42 08/16/18 06:42 Diabetes panel 08/16/18 Range/Units 06:42 Sodium 137 (136-145) mEq/L Potassium 5.1 (3.5-5.1) mEq/L Chloride 108 H (98-107) mEq/L Carbon Dioxide 20 L (23-29) mEq/L BUN 30 H (8-23) mg/dL Creatinine 2.22 H (0.70-1.30) mg/dL Glucose 144 H (70-105) mg/dL Calcium 9.0 (8.6-10.3) mg/dL AST 18 (13-39) Units/L ALT 10 (7-52) Units/L Alkaline Phosphatase 84 (34-104) Units/L Albumin 3.7 (3.5-5.7) g/dL Calcium panel 08/16/18 Range/Units 06:42 Calcium 9.0 (8.6-10.3) mg/dL Albumin 3.7 (3.5-5.7) g/dL Pituitary panel 08/16/18 Range/Units 06:42 Sodium 137 (136-145) mEq/L Potassium 5.1 (3.5-5.1) mEq/L Chloride 108 H (98-107) mEq/L Carbon Dioxide 20 L (23-29) mEq/L BUN 30 H (8-23) mg/dL Creatinine 2.22 H (0.70-1.30) mg/dL Glucose 144 H (70-105) mg/dL Calcium 9.0 (8.6-10.3) mg/dL Adrenal panel 08/16/18 Range/Units 06:42 Sodium 137 (136-145) mEq/L Potassium 5.1 (3.5-5.1) mEq/L Chloride 108 H (98-107) mEq/L Carbon Dioxide 20 L (23-29) mEq/L BUN 30 H (8-23) mg/dL Creatinine 2.22 H (0.70-1.30) mg/dL Glucose 144 H (70-105) mg/dL Calcium 9.0 (8.6-10.3) mg/dL Total Bilirubin 0.5 (0.3-1.0) mg/dL AST 18 (13-39) Units/L ALT 10 (7-52) Units/L Alkaline Phosphatase 84 (34-104) Units/L Albumin 3.7 (3.5-5.7) g/dL Consult Discharge Plan - Plan Referrals: NONE,PCP [Primary Care Provider] - Prescriptions: Ciprofloxacin [Cipro] 500 mg PO BID 3 Days #6 tablet Oxybutynin [Ditropan] 5 mg PO TID PRN #20 tablet PRN Reason: Bladder/stent irritation Oxycodone HCl/Acetaminophen [Percocet 5-325 mg Tablet] 1 each PO Q4-6H PRN 3 Days #10 tablet PRN Reason: pain
--- NOTE | 2018-08-16 19:18 | Anesthesia Evaluation Post Op ---
Date of Encounter: 08/16/18 Time of Encounter: 19:18 - Discharge PostOp Status: Transfer Patient to floor (Patient's vital signs have been reviewed. Patient is stable postoperatively and has adequately recovered from anesthesia. Patient is determined to have stable airway patency and respiratory function including respiratory rate and oxygen saturation. Patient has a stable heart rate, blood pressure and adequate hydration. Patients mental status is acceptable. Patients temperature is appropriate. Pain and nausea are adequately controlled.)
[2018-08-16] MEDS ORDERED: D5% in Water 1,000 ML IVC PRN (20:34)
[2018-08-16] MEDS ORDERED: *HR* Dextrose 50 % in Water (Syg) 50 ML SYRINGE IVP PRN (20:34)
[2018-08-16] MEDS ORDERED: Dextrose Gel 15 GM/37.5 ML TUBE PO PRN ×2 (20:34)
[2018-08-17 05:40] LABS: Hematocrit 35.5 % (37.5-50.1); Mean Corpuscular Hemoglobin 30.6 pg (28.0-33.3); Mean Corpuscular Volume 98.9 fL (83.0-100.0); Platelet Count 175 K/mcL (140-400); Red Blood Count 3.59 M/mcL (4.19-5.50); Red Cell Distribution Width 15.7 % (11.5-14.5)
[2018-08-17 05:50] LABS: Prothrombin Time 11.6 Seconds (9.4-12.1)
[2018-08-17 05:53] LABS: Activated Partial Thrombo Time 36.7 Seconds (26.0-36.0)
[2018-08-17 07:47] LABS: Albumin 3.1 g/dL (3.5-5.7); Albumin/Globulin Ratio 1.3 (1.1-2.2); Bilirubin,Total 0.3 mg/dL (0.3-1.0); Calcium 8.2 mg/dL (8.6-10.3); Globulin 2.3 g/dL (2.4-3.5); Magnesium 1.8 mg/dL (1.6-2.6); Phosphorous 4.4 mg/dL (2.7-4.5); Potassium 6.7 mEq/L (3.5-5.1); Total Protein 5.4 g/dL (6.4-8.9)
[2018-08-17] MEDS ORDERED: Insulin NPH 100 UNIT/ML (x5UNIT) SQ ONE (08:08)
[2018-08-17] MEDS ORDERED: Albuterol 2.5 MG/3 ML NEBULIZER IH ONE ×2 (08:09→08:40)
[2018-08-17] MEDS ORDERED: Insulin Regular, Human 100 UNIT/ML IV ONE (08:16)
[2018-08-17] MEDS: Insulin LISPRO 300 UNITS/3 ML VIAL SQ SCH ×3 (08:22→17:07)
[2018-08-17] MEDS: cefTRIAXone 1,000 MG in Water for inj. (sterile) 20 ML 10 ML IVP SCH (08:26)
[2018-08-17] MEDS ORDERED: *HR* Dextrose 50 % in Water (Syg) 50 ML SYRINGE IVP ONE (08:43)
[2018-08-17] MEDS ORDERED: Insulin Human Regular 10 UNIT in 0.9 % Sodium Chloride 10 ML IV ONE (08:45)
[2018-08-17] MEDS ORDERED: Sodium Bicarbonate 150 MEQ in D5% in Water 1,000 ML IVC SCH (08:45)
--- NOTE | 2018-08-17 08:56 | Urology Progress Note ---
<Mary Meeks N - Last Filed: 08/17/18 08:53> Date of Encounter: 08/17/18 Time of Encounter: 08:30 - Assessment and Plan (1) Ureteral calculus Current Visit: Yes Status: Acute Assessment and plan: Patient is a 73-year-old male who presents one day status post cystoscopy, left retrograde ureteral pyelography with intraoperative interpretation of radial graphic images in real time by surgeon to facilitate procedure, left ureteroscopy, laser lithotripsy of left ureteral calculus, left double-J stent placement. Vital signs are currently stable and afebrile. Serum creatinine is improved to 1.90. Discussed postoperative expectations with indwelling ureteral stent. We will plan to arrange an outpatient follow-up with Dr. Shukla within 10-14 days of discharge. Appreciate primary team management. Progress Note Subjective: no new complaints, feels better Narrative: POD #1. Patient seen and examined sitting upright in bed in no apparent di stress. Patient is voiding without difficulty. Patient states his pain is well-controlled. Patient is tolerating normal diet without nausea or vomiting. Objective Initial Vital Signs Temp Pulse Resp BP Pulse Ox 97.1 F L 77 18 145/81 100 08/16/18 06:32 08/16/18 06:32 08/16/18 06:32 08/16/18 06:32 08/16/18 06:32 - General physical appearance Present: well developed, no distress, no pain - Respiratory Present: normal expansion, normal respiratory effort - Abdomen Present: soft, non tender - Genitourinary Urine Appearance: Present: Clear - Integumentary Present: no rash, no abnormal pigmentation - Musculoskeletal Present: normal posture - Psychiatric Present: oriented to time, oriented to person, oriented to place, speech is normal, memory intact - Labs 08/17/18 04:47 08/17/18 06:53 Diabetes panel 08/17/18 Range/Units 06:53 Sodium 135 L (136-145) mEq/L Potassium 6.7 H* (3.5-5.1) mEq/L Chloride 111 H (98-107) mEq/L Carbon Dioxide 14 L (23-29) mEq/L BUN 31 H (8-23) mg/dL Creatinine 1.90 H (0.70-1.30) mg/dL Glucose 325 H (70-105) mg/dL Calcium 8.2 L (8.6-10.3) mg/dL AST 14 (13-39) Units/L ALT 6 L (7-52) Units/L Alkaline Phosphatase 72 (34-104) Units/L Albumin 3.1 L (3.5-5.7) g/dL Calcium panel 08/17/18 Range/Units 06:53 Calcium 8.2 L (8.6-10.3) mg/dL Phosphorus 4.4 (2.7-4.5) mg/dL Albumin 3.1 L (3.5-5.7) g/dL Pituitary panel 08/17/18 Range/Units 06:53 Sodium 135 L (136-145) mEq/L Potassium 6.7 H* (3.5-5.1) mEq/L Chloride 111 H (98-107) mEq/L Carbon Dioxide 14 L (23-29) mEq/L BUN 31 H (8-23) mg/dL Creatinine 1.90 H (0.70-1.30) mg/dL Glucose 325 H (70-105) mg/dL Calcium 8.2 L (8.6-10.3) mg/dL Adrenal panel 08/17/18 Range/Units 06:53 Sodium 135 L (136-145) mEq/L Potassium 6.7 H* (3.5-5.1) mEq/L Chloride 111 H (98-107) mEq/L Carbon Dioxide 14 L (23-29) mEq/L BUN 31 H (8-23) mg/dL Creatinine 1.90 H (0.70-1.30) mg/dL Glucose 325 H (70-105) mg/dL Calcium 8.2 L (8.6-10.3) mg/dL Total Bilirubin 0.3 (0.3-1.0) mg/dL AST 14 (13-39) Units/L ALT 6 L (7-52) Units/L Alkaline Phosphatase 72 (34-104) Units/L Albumin 3.1 L (3.5-5.7) g/dL Consult Discharge Plan - Plan Referrals: Tadeo Shukla [Partnered Physician] - 08/31/18 9:45 am Prescriptions: Ciprofloxacin [Cipro] 500 mg PO BID 3 Days #6 tablet RX: Oxybutynin [Ditropan] 5 mg PO TID PRN #20 tablet PRN Reason: Bladder/stent irritation <Tadeo Shukla Siena - Last Filed: 08/17/18 15:24> Date of Encounter: 08/17/18 - Assessment and Plan (1) Hydronephrosis Current Visit: Yes Status: Acute Qualifiers: Hydronephrosis type: with renal calculous obstruction Qualified Code(s): N13.2 - Hydronephrosis with renal and ureteral calculous obstruction (2) Ureteral calculus Current Visit: Yes Status: Acute Assessment and plan: Patient seen and examined independently. I am in agreement with the assessment and plan as outlined by our Urologic Surgery Department Physician Paving Plant Operator, Jeanna. No postoperative complications. Some stent irritation last night, but no difficulties tolerating stent today. My office will arrange for outpatient follow-up including stent removal in 2 weeks. Okay for discharge from urology perspective. (3) Anticoagulation adequate Current Visit: Yes Status: Acute (4) UTI (urinary tract infection) Current Visit: Yes Status: Acute Qualifiers: Urinary tract infection type: site unspecified Hematuria presence: with hematuria Qualified Code(s): N39.0 - Urinary tract infection, site not specif ied; R31.9 - Hematuria, unspecified Objective Initial Vital Signs Temp Pulse Resp BP Pulse Ox 97.1 F L 77 18 145/81 100 08/16/18 06:32 08/16/18 06:32 08/16/18 06:32 08/16/18 06:32 08/16/18 06:32 - Labs 08/17/18 04:47 08/17/18 10:03 Diabetes panel 08/17/18 08/17/18 Range/Units 06:53 10:03 Sodium 135 L (136-145) mEq/L Potassium 6.7 H* 4.1 D (3.5-5.1) mEq/L Chloride 111 H (98-107) mEq/L Carbon Dioxide 14 L (23-29) mEq/L BUN 31 H (8-23) mg/dL Creatinine 1.90 H (0.70-1.30) mg/dL Glucose 325 H (70-105) mg/dL Calcium 8.2 L (8.6-10.3) mg/dL AST 14 (13-39) Units/L ALT 6 L (7-52) Units/L Alkaline Phosphatase 72 (34-104) Units/L Albumin 3.1 L (3.5-5.7) g/dL Calcium panel 08/17/18 Range/Units 06:53 Calcium 8.2 L (8.6-10.3) mg/dL Phosphorus 4.4 (2.7-4.5) mg/dL Albumin 3.1 L (3.5-5.7) g/dL Pituitary panel 08/17/18 08/17/18 Range/Units 06:53 10:03 Sodium 135 L (136-145) mEq/L Potassium 6.7 H* 4.1 D (3.5-5.1) mEq/L Chloride 111 H (98-107) mEq/L Carbon Dioxide 14 L (23-29) mEq/L BUN 31 H (8-23) mg/dL Creatinine 1.90 H (0.70-1.30) mg/dL Glucose 325 H (70-105) mg/dL Calcium 8.2 L (8.6-10.3) mg/dL Adrenal panel 08/17/18 08/17/18 Range/Units 06:53 10:03 Sodium 135 L (136-145) mEq/L Potassium 6.7 H* 4.1 D (3.5-5.1) mEq/L Chloride 111 H (98-107) mEq/L Carbon Dioxide 14 L (23-29) mEq/L BUN 31 H (8-23) mg/dL Creatinine 1.90 H (0.70-1.30) mg/dL Glucose 325 H (70-105) mg/dL Calcium 8.2 L (8.6-10.3) mg/dL Total Bilirubin 0.3 (0.3-1.0) mg/dL AST 14 (13-39) Units/L ALT 6 L (7-52) Units/L Alkaline Phosphatase 72 (34-104) Units/L Albumin 3.1 L (3.5-5.7) g/dL
--- NOTE | 2018-08-17 09:25 | Internal Med Progress Note ---
<Elias Sosa - Last Filed: 08/17/18 11:41> Hospitalist Progress Note - Encounter Date of Encounter: 08/17/18 Time of Encounter: 09:46 - Subjective Interval History: Patient denied acute events overnight. This morning patient's potassium came back at 6.7. When developing Patient he denies chest pain, shortness of breath, abdominal pain, nausea, vomiting, diarrhea. He continues to have hematuria. - Exam Vitals: Temp Pulse Resp BP Pulse Ox 98.2 F 95 18 107/67 97 08/17/18 08:10 08/17/18 08:10 08/17/18 08:46 08/17/18 08:10 08/17/18 08:46 Exam: General: pleasant, without distress, Cardiovascualr: Regular rate and rhythm with no murmur, absent gallops or rubs, absent pedal edema, radial pulses 2 out of 4 Lungs: Clear to auscultation bilaterally, not in respiratory distress Abdomen: Soft nontender, nondistended positive bowel sounds, absent hepatomegaly Skin: warm and dry, absent rash, absent open wounds and nodules MSK: absent clubbing, cyanosis, joints without swelling Neuro: Cranial nerves II through XII intact, UE and LE sensation equal bilaterally, UE and LEstrength 5/5, alert oriented 3, Psych: good insight and judgment, anxious - Assessment and Plan (1) Hyperkalemia Current Visit: Yes Status: Acute Assessment and Plan: Patient has potassium of 6.7 this morning This is in the setting of worsening metabolic acidosis as well as BETTY EKG NSR without Qt prolongation. 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 patient s/p ureteroscopy with left laser lithotripsy avoid nephrotoxic agents will repeat BMP later this afternoon and tomorrow morning. (3) Diabetes mellitus Current Visit: Yes Status: Acute Assessment and Plan: hx of insulin dependent DM2 A1c 8.0 in 12/2014 diabetic diet SSI Leveimr 15 nits BID (4) UTI (urinary tract infection) Current Visit: Yes Status: Acute Assessment and Plan: Patient presented with left hydroureteronephrosis secondary to nephrolithiasis Urinalysis showed moderate leukocyte esterase Patient was started on ceftriaxone Urine culture is pending Plan to continue ceftriaxone and await urine culture results. (5) Metabolic acidosis Current Visit: Yes Status: Acute Assessment and Plan: Patient developed acute metabolic acidosis likely secondary to acute kidney injury from obstructive uropathy Serum creatinine has improved from 2.22-1.90 His bicarbonate has decreased from 20-14 and we will replace with IV bicarbonate infusion. Repeat BMP tomorrow. (6) Kidney stone on left side Current Visit: Yes Status: Acute Assessment and Plan: Status post cystoscopy with left ureteroscopy, laser lithotripsy of left ureteral calculus and left double-J stent placement Per urology if patient should follow-up in 10-[address] Shukla (7) HTN (hypertension) Current Visit: Yes Status: Chronic Assessment and Plan: Controlled Continue metoprolol. (8) DVT prophylaxis Current Visit: Yes Status: Acute Assessment and Plan: EPCD (9) Atrial fibrillation Current Visit: Yes Status: Acute Assessment and Plan: Patient has a history of atrial fibrillation Currently his rate control with metoprolol. We will holding xeralto due to gross hematuria from kidney stone. - Time Spent with Patient Total time spent is greater than 50% in coordination of care (as documented) at patient's floor/unit and/or counseling patient: Internal Medicine: Result - Labs CBC & Chem 7: 08/17/18 04:47 08/17/18 06:53 Labs: Short CBC 08/17/18 Range/Units 04:47 WBC 8.0 (4.3-11.1) K/mcL Hgb 11.0 L (12.9-16.9) g/dL Hct 35.5 L (37.5-50.1) % Plt Count 175 (140-400) K/mcL BMP 08/17/18 06:53 Sodium 135 L Potassium 6.7 H* Chloride 111 H Carbon Dioxide 14 L BUN 31 H Creatinine 1.90 H Glucose 325 H Calcium 8.2 L Liver Function 08/17/18 Range/Units 06:53 Total Bilirubin 0.3 (0.3-1.0) mg/dL AST 14 (13-39) Units/L ALT 6 L (7-52) Units/L Alkaline Phosphatase 72 (34-104) Units/L Albumin 3.1 L (3.5-5.7) g/dL - ABG Interpretation ABG results: PT/INR, D-dimer PT 11.6 Seconds (9.4-12.1) 08/17/18 04:47 - Impressions Impressions Retrograde Pyelogram 08/16/18 00:00 IMPRESSION: Intraprocedural fluoroscopic spot images as above. See separate procedure report for more information. D/ / Chelsie Gardiner Cha, MD / Chelsie Gardiner Cha, MD Interpreting Provider: Chelsie Gardiner Cha, MD Consult Discharge Plan - Plan Referrals: Tadeo Shukla [Partnered Physician] - 08/31/18 9:45 am Prescriptions: Ciprofloxacin [Cipro] 500 mg PO BID 3 Days #6 tablet Oxybutynin [Ditropan] 5 mg PO TID PRN #20 tablet PRN Reason: Bladder/stent irritation <Brant Cueto - Last Filed: 08/17/18 15:20> Hospitalist Progress Note - Encounter Date of Encounter: 08/17/18 Internal Medicine: Result - Labs CBC & Chem 7: 08/17/18 04:47 08/17/18 10:03 Labs: Short CBC 08/17/18 Range/Units 04:47 WBC 8.0 (4.3-11.1) K/mcL Hgb 11.0 L (12.9-16.9) g/dL Hct 35.5 L (37.5-50.1) % Plt Count 175 (140-400) K/mcL BMP 08/17/18 08/17/18 06:53 10:03 Sodium 135 L Potassium 6.7 H* 4.1 D Chloride 111 H Carbon Dioxide 14 L BUN 31 H Creatinine 1.90 H Glucose 325 H Calcium 8.2 L Liver Function 08/17/18 Range/Units 06:53 Total Bilirubin 0.3 (0.3-1.0) mg/dL AST 14 (13-39) Units/L ALT 6 L (7-52) Units/L Alkaline Phosphatase 72 (34-104) Units/L Albumin 3.1 L (3.5-5.7) g/dL - ABG Interpretation ABG results: PT/INR, D-dimer PT 11.6 Seconds (9.4-12.1) 08/17/18 04:47 - Impressions Impressions Retrograde Pyelogram 08/16/18 00:00 IMPRESSION: Intraprocedural fluoroscopic spot images as above. See separate procedure report for more information. D/ / Chelsie Gardiner Cha, MD / Chelsie Gardiner Cha, MD Interpreting Provider: Chelsie Gardiner Cha, MD - Attending Attestation Patient seen and examined independently, including review of objective data including labs. I agree with plan of care as documented above by the resident with the following comments: Pt p/w abd pain and hematuria, Cr 2.2, CT showing L hydroureteronephrosis and 4x7mm obstructing stone, consistent with nephrolithiasis and obstructive urop athy, underwent cystoscopy w left ureteroscopy and laser lithotripsy by Uro on 08/16. Today pt doing well and having only some hematuria. Labs remarkable unfortunately for K 7, bicarb 14, glucose 200s, Cr only down to 1.9. Suspect hyperkalemic metabolic acidosis from RTA 2/2 obstructive uropathy. ECG with mild T wave morphology change. Temporized with calcium and insulin/glucose, given kayexalate, and definitively managed with Bicarb gtt x1L. Repeat K down to 4. Will monitor later today and tomorrow AM prior to likely discharge home. <Elias Sosa - Last Filed: 08/17/18 11:41> (2) Acute renal failure Qualifiers: Acute renal failure type: unspecified Qualified Code(s): N17.9 - Acute kidney failure, unspecified (3) Diabetes mellitus Qualifiers: Diabetes mellitus type: type 2 Diabetes mellitus mcc insulin use: witho ut mcc use Diabetes mellitus complication status: without complication Qualified Code(s): E11.9 - Type 2 diabetes mellitus without complications (4) UTI (urinary tract infection) Qualifiers: Urinary tract infection type: site unspecified Hematuria presence: with hematuria Qualified Code(s): N39.0 - Urinary tract infection, site not specified; R31.9 - Hematuria, unspecified (7) HTN (hypertension) Qualifiers: Hypertension type: essential hypertension Qualified Code(s): I10 - Essential (primary) hypertension (9) Atrial fibrillation Qualifiers: Atrial fibrillation type: paroxysmal Qualified Code(s): I48.0 - Paroxysmal atrial fibrillation
[2018-08-17] MEDS: Insulin DETEMIR 100 UNIT/ML X5UNITS SQ SCH ×2 (10:39→20:40)
[2018-08-17] MEDS: *HR* HYDROcodone/Acet 5/325 mg TABLET PO PRN ×2 (15:02→22:36)
[2018-08-17 16:52] LABS: Calcium 8.5 mg/dL (8.6-10.3); Potassium 4.8 mEq/L (3.5-5.1)
--- NOTE | 2018-08-17 17:08 | Electrocardiograph Report ---
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
[2018-08-17] MEDS ORDERED: Finasteride 5 MG TABLET PO SCH (18:00)
[2018-08-17] MEDS ORDERED: Insulin LISPRO 300 UNITS/3 ML VIAL SQ SCH (21:00)
[2018-08-18 07:47] LABS: Basophils # 0.1 K/mcL (0.0-0.2); Basophils % 0.6 %; Eosinophils # 0.2 K/mcL (0.0-0.6); Eosinophils % 1.8 %; Hemoglobin 10.5 g/dL (12.9-16.9); Immature Granulocytes % 0.4 % (0-4); Lymphocytes # 3.9 K/mcL (0.6-4.6); Lymphocytes % 42.7 %; Mean Corpuscular HGB Conc 30.9 g/dL (31.6-35.5); Mean Corpuscular Volume 97.1 fL (83.0-100.0); Mean Platelet Volume 10.7 fL (9.4-12.4); Monocytes # 0.8 K/mcL (0.0-1.3); Monocytes % 8.6 %; Neutrophils # 4.1 K/mcL (1.6-8.9); Platelet Count 238 K/mcL (140-400); Red Cell Distribution Width 16.2 % (11.5-14.5); Segmented Neutrophils % 45.9 %
--- NOTE | 2018-08-18 08:00 | Internal Med Progress Note ---
Hospitalist Progress Note - Encounter Date of Encounter: 08/18/18 - Exam Vitals: Temp Pulse Resp BP Pulse Ox 97.8 F 83 18 130/80 95 08/18/18 06:30 08/18/18 06:30 08/18/18 06:30 08/18/18 06:30 08/18/18 06:30 - Assessment and Plan (1) Hyperkalemia Current Visit: Yes Status: Acute (2) Acute renal failure Current Visit: Yes Status: Inactive (3) Diabetes mellitus Current Visit: Yes Status: Acute (4) UTI (urinary tract infection) Current Visit: Yes Status: Acute (5) Metabolic acidosis Current Visit: Yes Status: Acute (6) Kidney stone on left side Current Visit: Yes Status: Acute (7) HTN (hypertension) Current Visit: Yes Status: Chronic (8) DVT prophylaxis Current Visit: Yes Status: Acute (9) Atrial fibrillation Current Visit: Yes Status: Acute - Time Spent with Patient Total time spent is greater than 50% in coordination of care (as documented) at patient's floor/unit and/or counseling patient: Internal Medicine: Result - Labs CBC & Chem 7: 08/18/18 07:28 08/17/18 16:03 Labs: Short CBC 08/18/18 Range/Units 07:28 WBC 9.0 (4.3-11.1) K/mcL Hgb 10.5 L (12.9-16.9) g/dL Hct 34.0 L (37.5-50.1) % Plt Count 238 (140-400) K/mcL Neutrophils # 4.1 (1.6-8.9) K/mcL BMP 08/17/18 08/17/18 10:03 16:03 Sodium 137 Potassium 4.1 D 4.8 Chloride 107 Carbon Dioxide 20 L BUN 33 H Creatinine 2.01 H Glucose 384 H Calcium 8.5 L - ABG Interpretation ABG results: PT/INR, D-dimer PT 11.6 Seconds (9.4-12.1) 08/17/18 04:47 Consult Discharge Plan - Plan Referrals: Tadeo Shukla [Partnered Physician] - 08/31/18 9:45 am (2) Acute renal failure Qualifiers: Acute renal failure type: unspecified Qualified Code(s): N17.9 - Acute kidney failure, unspecified (3) Diabetes mellitus Qualifiers: Diabetes mellitus type: type 2 Diabetes mellitus jail insulin use: without jail use Diabetes mellitus complication status: without complication Qualified Code(s): E11.9 - Type 2 diabetes mellitus without complications (4) UTI (urinary tract infection) Qualifiers: Urinary tract infection type: site unspecified Hematuria presence: with hematuria Qualified Code(s): N39.0 - Urinary tract infection, site not specified; R31.9 - Hematuria, unspecified (7) HTN (hypertension) Qualifiers: Hypertension type: essential hypertension Qualified Code(s): I10 - Essential (primary) hypertension (9) Atrial fibrillation Qualifiers: Atrial fibrillation type: paroxysmal Qualified Code(s): I48.0 - Paroxysmal atrial fibrillation
[2018-08-18 08:07] LABS: Potassium 4.2 mEq/L (3.5-5.1)
[2018-08-18 08:08] LABS: Calcium 8.7 mg/dL (8.6-10.3)
[2018-08-18] MEDS: cefTRIAXone 1,000 MG in Water for inj. (sterile) 20 ML 10 ML IVP SCH (08:42)
[2018-08-18] MEDS: Insulin LISPRO 300 UNITS/3 ML VIAL SQ SCH ×2 (08:44→11:58)
[2018-08-18] MEDS ORDERED: Insulin DETEMIR 100 UNIT/ML X5UNITS SQ SCH (09:00)
[2018-08-18 11:41] VITALS: BP 128/79
--- NOTE | 2018-08-18 11:42 | Discharge Summary ---
<Elias Sosa - Last Filed: 08/18/18 11:47> - NOTES TO OUTPATIENT PROVIDER Notes to Outpatient Provider: follow up with urology. PCP or Urology needs to evaluate patients hematuria before restarting xeralto. Orders not resulted at time of discharge: Pending orders 08/16/18 08:40 Culture,Blood [BC] Stat 08/18/18 07:55 Creatinine,Urine [UCHEM] Stat Sodium, Urine [UCHEM] Stat Date of Encounter: 08/18/18 Time of Encounter: 11:37 - Discharge Diagnosis (1) Kidney stone on left side Priority: Primary Status: Resolved (2) Hyperkalemia Priority: Secondary Status: Resolved (3) Acute renal failure Priority: Secondary Status: Acute Qualifiers: Acute renal failure type: unspecified Qualified Code(s): N17.9 - Acute kidney failure, unspecified (4) Diabetes mellitus Priority: Secondary Status: Chronic Qualifiers: Diabetes mellitus type: type 2 Diabetes mellitus intermediate project manager insulin use: without intermediate project manager use Diabetes mellitus complication status: without complication Qualified Code(s): E11.9 - Type 2 diabetes mellitus without complications (5) UTI (urinary tract infection) Priority: Secondary Status: Acute Qualifiers: Urinary tract infection type: site unspecified Hematuria presence: with hematuria Qualified Code(s): N39.0 - Urinary tract infection, site not specified; R31.9 - Hematuria, unspecified (6) Metabolic acidosis Priority: Secondary Status: Resolved (7) HTN (hypertension) Priority: Secondary Status: Chronic Qualifiers: Hypertension type: essential hypertension Qualified Code(s): I10 - Essential (primary) hypertension (8) DVT prophylaxis Priority: Secondary Status: Acute (9) Atrial fibrillation Priority: Secondary Status: Chronic Qualifiers: Atrial fibrillation type: paroxysmal Qualified Code(s): I48.0 - Paroxysmal atrial fibrillation Hospital course: Mr. Munoz is a 73 year old male admitted for left lower quadrant abdominal pain found to have left nephrolithiasis with hydroureteronephrosis underwent ureteroscopy with laser lithotripsy and stent placement. Patient also had BETTY, suspected UTI on admission. He tolerated procedure well. He was started on ceftriaxone. Next day he developed metabolic acidosis and hyperkalemia which was reversed with IV bicarb infusion, kayexalate, albuterol nebs, dextrose with insulin. His renal function has improved today but not back to baseline. He is ambulating independently and tolerating his diet. He will follow up with PCP and urology. Outpatient there will need to be a determination of restarting xeralto once hematuria is resolved. He was given ciprofloxacin script by urology. Discharge discussed with: patient, family - Time Spent with Patient Total time spent providing and/or coordinating discharge services: - Discharge Medications Prescriptions: New Ciprofloxacin [Cipro] 500 mg PO BID 3 Days #6 tablet Oxybutynin [Ditropan] 5 mg PO TID PRN #20 tablet PRN Reason: Bladder/stent irritation Continue Ezetimibe [Zetia] 10 mg PO DAILY Insulin DETEMIR [Levemir] 30 unit SQ BID HYDROcodone/Acet 5/325 mg [[place] 5-325 mg] 1 tab PO Q6H PRN PRN Reason: Pain [place] Oil/[place]-3 Fatty Acids [Fish Oil 500 mg Softgel] 2,400 mg PO BID Ferrous Sulfate 325 mg PO DAILY Finasteride [Proscar] 5 mg PO QPM Metoprolol [Lopressor] 12.5 mg PO BID Insulin LISPRO [Humalog Kwikpen U-100] 5 - 20 unit SQ TID Lidocaine Patch [Lidoderm 5% patch] 1 each TP DAILY PRN PRN Reason: Pain Tamsulosin [Flomax] 0.4 mg PO DAILY Duloxetine HCl [Cymbalta] 60 mg PO DAILY Ciprofloxacin HCl [Cipro] 500 mg PO DAILY Discontinued Rivaroxaban [Xarelto] 20 mg PO QPM Home Medications: Ezetimibe [Zetia] 10 mg PO DAILY 12/23/14 [History] Ferrous Sulfate 325 mg PO DAILY 12/23/14 [History] HYDROcodone/Acet 5/325 mg [[place] 5-325 mg] 1 tab PO Q6H PRN 12/23/14 [History] Insulin DETEMIR [Levemir] 30 unit SQ BID 12/23/14 [History] [place] Oil/[place]-3 Fatty Acids [Fish Oil 500 mg Softgel] 2,400 mg PO BID 12/23/14 [History] Finasteride [Proscar] 5 mg PO QPM 03/23/15 [History] Ciprofloxacin HCl [Cipro] 500 mg PO DAILY 08/16/18 [History] Ciprofloxacin [Cipro] 500 mg PO BID 3 Days #6 tablet 08/16/18 [Rx] Duloxetine HCl [Cymbalta] 60 mg PO DAILY 08/16/18 [History] Insulin LISPRO [Humalog Kwikpen U-100] 5 - 20 unit SQ TID 08/16/18 [History] Lidocaine Patch [Lidoderm 5% patch] 1 each TP DAILY PRN 08/16/18 [History] Metoprolol [Lopressor] 12.5 mg PO BID 08/16/18 [History] Oxybutynin [Ditropan] 5 mg PO TID PRN #20 tablet 08/16/18 [Rx] Tamsulosin [Flomax] 0.4 mg PO DAILY 08/16/18 [History] Allergies/Adverse Reactions: Allergy/AdvReac Type Severity Reaction Status Date / Time adhesive tape Allergy Rash Verified 02/21/15 18:14 atorvastatin [From Lipitor] Allergy Dizziness Verified 12/22/14 21:22 Iodinated Contrast- Oral and Allergy Difficulty Verified 02/21/15 18:14 IV Dye Breathing [Iodinated Contrast Media - IV Dye] Date of admission: 08/17/18 18:44 Primary care physician: PCP NONE Consults: 08/16/18 08:27 Consult to Urology [CONS] Stat Consulting Provider: Urology [place] Reason for Consult: kidney stone with infection,size 4x7 mm Call Completed: Yes Discharging clinician: Elias Sosa Anticipated date of discharge: 08/18/18 - Constitutional Vitals: Temp Pulse Resp BP Pulse Ox 97.8 F 83 18 130/80 95 08/18/18 06:30 08/18/18 06:30 08/18/18 06:30 08/18/18 06:30 08/18/18 06:30 General appearance: Present: A&O X 3 Exam: General: pleasant, without distress, Cardiovascualr: Regular rate and rhythm with no murmur, absent gallops or rubs, absent pedal edema, radial pulses 2 out of 4 Lungs: Clear to auscultation bilaterally, not in respiratory distress Abdomen: Soft nontender, nondistended positive bowel sounds, absent hepatomegaly Skin: warm and dry, absent rash, absent open wounds and nodules MSK: absent clubbing, cyanosis, joints without swelling Neuro: Cranial nerves II through XII intact, UE and LE sensation equal bilaterally, UE and LEstrength 5/5, alert oriented 3, Psych: good insight and judgment, anxious - Patient Status Disposition: Home, Self-Care Condition: Good Functional capacity at discharge: independent ambulation Overall status at discharge: patient is progressing back to baseline - Ambulatory Orders Ambulatory Orders: Basic Metabolic Panel [CHEM] Time Frame: 08/23/18, Facility: [facility], Location: Lab - Discharge Instructions Instructions: Acute Kidney Injury (DC), Urinary Tract Infection in Men (DC) Follow Up With: Tadeo Shukla [Partnered Physician] - 08/31/18 9:45 am - Diet and Activity Activity: increase activity as tolerated Diet: low fat, low cholesterol, low salt diet <Bunny Noguera - Last Filed: 08/18/18 15:55> Orders not resulted at time of discharge: Pending orders 08/16/18 08:40 Culture,Blood [BC] Stat 08/18/18 07:55 Creatinine,Urine [UCHEM] Stat Sodium, Urine [UCHEM] Stat Date of Encounter: 08/18/18 - Discharge Diagnosis (1) HTN (hypertension) Status: Chronic Qualifiers: Hypertension type: essential hypertension Qualified Code(s): I10 - Essential (primary) hypertension (2) UTI (urinary tract infection) Status: Acute Qualifiers: Urinary tract infection type: site unspecified Hematuria presence: with hematuria Qualified Code(s): N39.0 - Urinary tract infection, site not specified; R31.9 - Hematuria, unspecified (3) Acute renal failure Status: Acute Qualifiers: Acute renal failure type: unspecified Qualified Code(s): N17.9 - Acute kidney failure, unspecified (4) Hydronephrosis Status: Acute Qualifiers: Hydronephrosis type: with renal calculous obstruction Qualified Code(s): N13.2 - Hydronephrosis with renal and ureteral calculous obstruction (5) Ureteral calculus Status: Acute (6) Anticoagulation adequate Status: Acute (7) Metabolic acidosis Status: Resolved (8) DVT prophylaxis Status: Acute Hospital course: Mr. Munoz is a 73 year old male - Time Spent with Patient Total time spent providing and/or coordinating discharge services: Date of admission: 08/17/18 18:44 Primary care physician: PCP NONE Consults: 08/16/18 08:27 Consult to Urology [CONS] Stat Consulting Provider: Urology [facility] Reason for Consult: kidney stone with infection,size 4x7 mm Call Completed: Yes - Constitutional Vitals: Temp Pulse Resp BP Pulse Ox 97.8 F 79 18 128/79 94 08/18/18 11:40 08/18/18 11:40 08/18/18 11:40 08/18/18 11:40 08/18/18 11:40 - Attending Attestation I examined this patient and my medical decision-making was reviewed with the Resident Physician. I agree with the documented findings, disposition and treatment plan as described except to the extent set forth below.
[2018-08-18] MEDS: *HR* HYDROcodone/Acet 5/325 mg TABLET PO PRN (11:59)
== END 2018-08-18 12:30 | disposition home or self-care (01) | DRG 660 ==
LOC: EMEROOARM 06:27 → 3ANU 06:27 → SUATTDRO 09:30 → 3ANU 10:12 → SUATTDRO 08-17 18:44
PROVIDERS: ADMIT Internal Medicine Nephrology; ATTEND Student in an Organized Health Care Education/Training Program

== ENCOUNTER 2018-11-17 17:56 | Inpatient (IN) ==
--- NOTE | 2018-11-17 18:49 | Emergency Department Note ---
Disposition Clinical Impression: Generalized weakness, Hyponatremia, Hyperkalemia, HHNC (hyperglycemic hyperosmolar nonketotic coma) UTI (urinary tract infection) Qualifiers: Urinary tract infection type: site unspecified Hematuria presence: without hematuria Qualified Code(s): N39.0 - Urinary tract infection, site not specified Disposition: Admitted As Inpatient Condition: Fair Referrals: Alfredo Drake MD [Primary Care Provider] - Forms: ED Satisfaction Letter Time of Disposition: 21:55 General Adult HPI - General Chief complaint: ED Weakness Stated complaint: Weakness, hyperglycemic, R/O sepsis Time Seen by Provider: 11/17/18 18:33 Source: patient, family Mode of arrival: private vehicle Limitations: no limitations Nursing Notes Reviewed: Yes Vital Signs Reviewed: Yes - History of Present Illness HPI Narrative: Patient is a 73-year-old male with a past medical history including CVA, TIA, on Xarelto, hypertension, hyperlipidemia, diabetes mellitus type 2 on insulin, kidney stones presenting with a chief complaint of generalized weakness and elevated blood glucose. Patient states for the past month he has been feeling generally weak. He has lost proximally 20-30 pounds. He is diagnosed with C. difficile infection and was treated with antibiotics. He states he finished these antibiotics couple weeks ago. Diarrhea resolved. He states for the past 3 days, he states he he developed diarrhea that is nonbloody. Weakness is worsened. He denies headache, lightheadedness, dizziness, chest pain, shortness of breath. He does state he has a appetite. He denies nausea or vomiting, abdominal pain, dysuria or hematuria. He went to his family physician's office today and they checked her glucose which was unreadable as it was too high and he was sent here for further management. Pain Scale: 5 - Related Data Home Medications Medication Instructions Recorded Confirmed Duloxetine HCl [Cymbalta] 60 mg PO DAILY 08/16/18 09/04/18 Insulin LISPRO [Humalog Kwikpen 5 - 20 unit SQ TID 08/16/18 09/04/18 U-100] Lidocaine Patch [Lidoderm 5% patch] 1 each TP DAILY PRN 08/16/18 09/04/18 Metoprolol [Lopressor] 12.5 mg PO BID 08/16/18 09/04/18 Tamsulosin [Flomax] 0.4 mg PO DAILY 08/16/18 09/04/18 Ezetimibe [Zetia] 10 mg PO DAILY 08/24/18 09/04/18 Ferrous Sulfate [Iron] 325 mg PO DAILY 08/24/18 09/04/18 Finasteride [Proscar] 5 mg PO QPM 08/24/18 09/04/18 Insulin DETEMIR [Levemir Flextouch] 30 unit SQ BID 08/24/18 09/04/18 [place]-3/Dha/Epa/Fish Oil [Fish Oil 1 cap PO DAILY 08/24/18 09/04/18 EC 1,200 mg Softgel] Rivaroxaban [Xarelto] 20 mg PO DAILY 08/25/18 09/04/18 Previous Rx's Medication Instructions Recorded Furosemide [Lasix] 20 mg IVP BIDDIURETIC vial 09/08/18 Allergies Allergy/AdvReac Type Severity Reaction Status Date / Time adhesive tape Allergy Rash Verified 08/24/18 21:19 Iodinated Contrast- Oral and Allergy Difficulty Verified 08/24/18 21:19 IV Dye Breathing [Iodinated Contrast Media - IV Dye] atorvastatin [From Lipitor] AdvReac Dizziness Verified 08/24/18 21:19 Xumemge-Gva-Exr Reductase AdvReac Muscle Pain Verified 08/24/18 21:19 Inhibitor All systems ED: reviewed and negative except as stated. Review of Systems: As Per HPI Constitutional: Denies: fever, chills Eyes: Denies: vision change ENT ED: Denies: congestion Cardiovascular: Denies: chest pain, palpitations Respiratory: Denies: cough, dyspnea Gastrointestinal: Reports: diarrhea. Denies: abdominal pain, nausea, vomiting Genitourinary: Denies: dysuria, hematuria Neurological: Reports: weakness. Denies: headache, numbness, paresthesias, confusion Past Medical History - Past Medical History Attestation: Yes The following information was validated with the patient. Source: patient Medical history: Reports: CVA, DVT, diabetes, hyperlipidemia, hypertension, kid tim stones, TIA Surgical history: Reports: appendectomy, bariatric surgery, cholecystectomy, herniorrhaphy, orthopedic, other Psychiatric history: Reports: no psych history - Social History Smoking Status: Never smoker Smokeless Tobacco Status: No Alcohol use: Reports: none Drug use: Reports: none Physical Exam - General Limitations: no limitations General appearance: alert, in no apparent distress - Head Head exam: atraumatic, normocephalic - Eye Eye exam: Present: normal appearance, PERRL, EOMI - ENT ENT exam: mucous membranes dry - Neck Neck exam: Present: normal inspection, trachea midline - Chest Chest inspection: Present: normal inspection, symmetric chest wall rise - Respiratory Respiratory exam: Present: normal lung sounds bilaterally. Absent: respiratory distress, wheezes - Cardiovascular Cardiovascular exam: Present: regular rate, normal rhythm, normal heart sounds - Abdominal Exam Abdominal exam: Present: soft, Non-Tender. Absent: distention, guarding, rebound - Extremities Exam Extremities exam: Present: normal capillary refill. Absent: pedal edema - Neurological Exam Neurological exam: Present: alert, oriented X3, CN II-XII intact. Absent: motor sensory deficit - Expanded Neurological Exam Speech: Present: fluid speech Motor strength - LUE: 5/5 Motor strength - RUE: 5/5 Motor strength - LLE: 5/5 Motor strength - RLE: 5/5 Upper motor neuron exam: jose neglect: Absent bilaterally, pronator drift: Absent bilaterally - Psychiatric Psychiatric exam: Present: normal affect, normal mood - Skin Skin exam: Present: warm, dry. Absent: diaphoresis, pallor Course Vital Signs Temperature 97.3 F L 11/17/18 18:00 Pulse Rate 96 11/17/18 18:00 Respiratory Rate 18 11/17/18 18:00 Blood Pressure 127/82 11/17/18 18:00 O2 Sat by Pulse Oximetry 100 11/17/18 18:00 Temperature 97.3 F L 11/17/18 18:59 Pulse Rate 74 11/17/18 21:11 Respiratory Rate 20 11/17/18 21:11 Blood Pressure 134/79 11/17/18 21:11 O2 Sat by Pulse Oximetry 100 11/17/18 21:11 Oxygen Delivery Oxygen Delivery Room Air Medical Decision Making - MDM Narrative Medical decision making narrative: Patient is nontoxic appearing. Nonfocal neurologic examination. We will obtain a CT glucose, CBC, BMP, troponin, EKG, VBG, beta hydroxybutyric acid, chest x-r ay, urinalysis, we will give him a liter of IV fluids and reassess. Anticipate admission. He will also need to give another stool sample for C. difficile toxin. 21:30 Urine is possible contamination, culture pending. Chest x-ray shows no acute cardiopulmonary abnormality.Patient received 2 L IV fluid boluses. His glucose is greater than 2400. He has an elevated beta hydroxybutyric acid. His anion gap is 15 with sodium 118 and potassium 5.2. He will receive insulin drip. Vitals remained stable. He remains alert and oriented 3. He will require ICU admission. Urine sodium, creatinine, osmolality will be also ordered. Blood cultures obtained. Lactate is normal and pH is 7.21. He will receive a third liter of IVFs. Will monitor him closely and he will be admitted for HHNS. Shelby mcfadden paged. 21:[address] Cooley who accepts admission. IV Rocephin will be given for the possible UTI. - Medical Records Medical records reviewed: Yes I reviewed the patient's medical records. - Lab Data Lab results reviewed: Yes I reviewed the patient's lab results. Result diagrams: 11/17/18 19:43 11/17/18 19:43 Lab Results 11/17/18 11/17/18 11/17/18 Range/Units 19:27 19:43 19:43 WBC 12.2 H (4.3-11.1) K/mcL RBC 3.81 L (4.19-5.50) M/mcL Hgb 11.5 L (12.9-16.9) g/dL Hct 37.7 (37.5-50.1) % MCV 99.0 (83.0-100.0) fL MCH 30.2 (28.0-33.3) pg MCHC 30.5 L (31.6-35.5) g/dL RDW 16.3 H (11.5-14.5) % Plt Count 385 (140-400) K/mcL MPV 10.8 (9.4-12.4) fL Immature Gran % 1.2 (0-4) % Seg Neutrophils % 72.6 % Lymphocytes % 19.7 % Monocytes % 5.8 % Eosinophils % 0.2 % Basophils % 0.5 % Neutrophils # 8.9 (1.6-8.9) K/mcL Lymphocytes # 2.4 (0.6-4.6) K/mcL Monocytes # 0.7 (0.0-1.3) K/mcL Eosinophils # 0.0 (0.0-0.6) K/mcL Basophils # 0.1 (0.0-0.2) K/mcL VBG pH (7.32-7.42) pH Units VBG pCO2 (41-51) mmHg VBG pO2 (25-50) mmHg VBG HCO3 (21-27) mEq/L Sodium 118 L* (136-145) mEq/L Potassium 5.2 H (3.5-5.1) mEq/L Chloride 94 L (98-107) mEq/L Carbon Dioxide 9 L* (23-29) mEq/L BUN 49 H (8-23) mg/dL Creatinine 2.06 H (0.70-1.30) mg/dL Est GFR ( Amer) 39 L (> 60) Est GFR (Non-Af Amer) 32 L (> 60) BUN/Creatinine Ratio 24 (6-26) Glucose > 2400 H* (70-105) mg/dL POC Glucose (70-99) mg/dL Calculated Osmolality TNP Lactic Acid 1.2 (0.5-2.2) mmol/L Calcium 9.0 (8.6-10.3) mg/dL Troponin I < 0.03 (< 0.04) ng/mL Beta-Hydroxybutyric Acd (0.02-0.27) mmol/L Urine Color (Yellow) Urine Clarity (Clear) Urine pH (5.0-8.0) pH Units Ur Specific [place] (1.010-1.025) Urine Protein (Neg-Trace) mg/dL Urine Glucose (UA) (Normal) mg/dL Urine Ketones (Negative) mg/dL Urine Blood (Negative) Urine Nitrite (Negative) Urine Bilirubin (Negative) Urine Urobilinogen (Normal) mg/dL Ur Leukocyte Esterase (Negative) Urine Microscopic RBC (0-3) per hpf Urine Microscopic WBC (0-3) per hpf Ur Squamous Epith Cells (None-Few) per lpf Urine Bacteria (None-Few) per hpf Hyaline Casts (None-Few) per lpf Urine Yeast (None Seen) per hpf Ur Culture Indicated? (NO) Urine Osmolality (300-1090) mOsm/kg Urine Creatinine mg/dL Urine Sodium mEq/L 11/17/18 11/17/18 11/17/18 Range/Units 19:43 19:45 20:04 WBC (4.3-11.1) K/mcL RBC (4.19-5.50) M/mcL Hgb (12.9-16.9) g/dL Hct (37.5-50.1) % MCV (83.0-100.0) fL MCH (28.0-33.3) pg MCHC (31.6-35.5) g/dL RDW (11.5-14.5) % Plt Count (140-400) K/mcL MPV (9.4-12.4) fL Immature Gran % (0-4) % Seg Neutrophils % % Lymphocytes % % Monocytes % % Eosinophils % % Basophils % % Neutrophils # (1.6-8.9) K/mcL Lymphocytes # (0.6-4.6) K/mcL Monocytes # (0.0-1.3) K/mcL Eosinophils # (0.0-0.6) K/mcL Basophils # (0.0-0.2) K/mcL VBG pH 7.21 L (7.32-7.42) pH Units VBG pCO2 30 L (41-51) mmHg VBG pO2 82 H (25-50) mmHg VBG HCO3 12 L (21-27) mEq/L Sodium (136-145) mEq/L Potassium (3.5-5.1) mEq/L Chloride (98-107) mEq/L Carbon Dioxide (23-29) mEq/L BUN (8-23) mg/dL Creatinine (0.70-1.30) mg/dL Est GFR ( Amer) (> 60) Est GFR (Non-Af Amer) (> 60) BUN/Creatinine Ratio (6-26) Glucose (70-105) mg/dL POC Glucose (70-99) mg/dL Calculated Osmolality Lactic Acid (0.5-2.2) mmol/L Calcium (8.6-10.3) mg/dL Troponin I (< 0.04) ng/mL Beta-Hydroxybutyric Acd > 2.00 H (0.02-0.27) mmol/L Urine Color Yellow (Yellow) Urine Clarity Cloudy A (Clear) Urine pH 6.0 (5.0-8.0) pH Units Ur Specific [place] 1.026 H (1.010-1.025) Urine Protein 30 H (Neg-Trace) mg/dL Urine Glucose (UA) >=1000 H (Normal) mg/dL Urine Ketones Trace H (Negative) mg/dL Urine Blood Small H (Negative) Urine Nitrite Negative (Negative) Urine Bilirubin Negative (Negative) Urine Urobilinogen Normal (Normal) mg/dL Ur Leukocyte Esterase Moderate H (Negative) Urine Microscopic RBC 3-5 H (0-3) per hpf Urine Microscopic WBC TNTC H (0-3) per hpf Ur Squamous Epith Cells Many H (None-Few) per lpf Urine Bacteria None Seen (None-Few) per hpf Hyaline Casts None Seen (None-Few) per lpf Urine Yeast Moderate H (None Seen) per hpf Ur Culture Indicated? YES A (NO) Urine Osmolality (300-1090) mOsm/kg Urine Creatinine mg/dL Urine Sodium mEq/L 11/17/18 11/17/18 11/17/18 Range/Units 20:04 20:04 21:02 WBC (4.3-11.1) K/mcL RBC (4.19-5.50) M/mcL Hgb (12.9-16.9) g/dL Hct (37.5-50.1) % MCV (83.0-100.0) fL MCH (28.0-33.3) pg MCHC (31.6-35.5) g/dL RDW (11.5-14.5) % Plt Count (140-400) K/mcL MPV (9.4-12.4) fL Immature Gran % (0-4) % Seg Neutrophils % % Lymphocytes % % Monocytes % % Eosinophils % % Basophils % % Neutrophils # (1.6-8.9) K/mcL Lymphocytes # (0.6-4.6) K/mcL Monocytes # (0.0-1.3) K/mcL Eosinophils # (0.0-0.6) K/mcL Basophils # (0.0-0.2) K/mcL VBG pH (7.32-7.42) pH Units VBG pCO2 (41-51) mmHg VBG pO2 (25-50) mmHg VBG HCO3 (21-27) mEq/L Sodium (136-145) mEq/L Potassium (3.5-5.1) mEq/L Chloride (98-107) mEq/L Carbon Dioxide (23-29) mEq/L BUN (8-23) mg/dL Creatinine (0.70-1.30) mg/dL Est GFR ( Amer) (> 60) Est GFR (Non-Af Amer) (> 60) BUN/Creatinine Ratio (6-26) Glucose (70-105) mg/dL POC Glucose > 600 H* (70-99) mg/dL Calculated Osmolality Lactic Acid (0.5-2.2) mmol/L Calcium (8.6-10.3) mg/dL Troponin I (< 0.04) ng/mL Beta-Hydroxybutyric Acd (0.02-0.27) mmol/L Urine Color (Yellow) Urine Clarity (Clear) Urine pH (5.0-8.0) pH Units Ur Specific [place] (1.010-1.025) Urine Protein (Neg-Trace) mg/dL Urine Glucose (UA) (Normal) mg/dL Urine Ketones (Negative) mg/dL Urine Blood (Negative) Urine Nitrite (Negative) Urine Bilirubin (Negative) Urine Urobilinogen (Normal) mg/dL Ur Leukocyte Esterase (Negative) Urine Microscopic RBC (0-3) per hpf Urine Microscopic WBC (0-3) per hpf Ur Squamous Epith Cells (None-Few) per lpf Urine Bacteria (None-Few) per hpf Hyaline Casts (None-Few) per lpf Urine Yeast (None Seen) per hpf Ur Culture Indicated? (NO) Urine Osmolality 489 (300-1090) mOsm/kg Urine Creatinine 40 mg/dL Urine Sodium 33.1 mEq/L 11/17/18 Range/Units 21:03 WBC (4.3-11.1) K/mcL RBC (4.19-5.50) M/mcL Hgb (12.9-16.9) g/dL Hct (37.5-50.1) % MCV (83.0-100.0) fL MCH (28.0-33.3) pg MCHC (31.6-35.5) g/dL RDW (11.5-14.5) % Plt Count (140-400) K/mcL MPV (9.4-12.4) fL Immature Gran % (0-4) % Seg Neutrophils % % Lymphocytes % % Monocytes % % Eosinophils % % Basophils % % Neutrophils # (1.6-8.9) K/mcL Lymphocytes # (0.6-4.6) K/mcL Monocytes # (0.0-1.3) K/mcL Eosinophils # (0.0-0.6) K/mcL Basophils # (0.0-0.2) K/mcL VBG pH (7.32-7.42) pH Units VBG pCO2 (41-51) mmHg VBG pO2 (25-50) mmHg VBG HCO3 (21-27) mEq/L Sodium (136-145) mEq/L Potassium (3.5-5.1) mEq/L Chloride (98-107) mEq/L Carbon Dioxide (23-29) mEq/L BUN (8-23) mg/dL Creatinine (0.70-1.30) mg/dL Est GFR ( Amer) (> 60) Est GFR (Non-Af Amer) (> 60) BUN/Creatinine Ratio (6-26) Glucose (70-105) mg/dL POC Glucose > 600 H* (70-99) mg/dL Calculated Osmolality Lactic Acid (0.5-2.2) mmol/L Calcium (8.6-10.3) mg/dL Troponin I (< 0.04) ng/mL Beta-Hydroxybutyric Acd (0.02-0.27) mmol/L Urine Color (Yellow) Urine Clarity (Clear) Urine pH (5.0-8.0) pH Units Ur Specific [place] (1.010-1.025) Urine Protein (Neg-Trace) mg/dL Urine Glucose (UA) (Normal) mg/dL Urine Ketones (Negative) mg/dL Urine Blood (Negative) Urine Nitrite (Negative) Urine Bilirubin (Negative) Urine Urobilinogen (Normal) mg/dL Ur Leukocyte Esterase (Negative) Urine Microscopic RBC (0-3) per hpf Urine Microscopic WBC (0-3) per hpf Ur Squamous Epith Cells (None-Few) per lpf Urine Bacteria (None-Few) per hpf Hyaline Casts (None-Few) per lpf Urine Yeast (None Seen) per hpf Ur Culture Indicated? (NO) Urine Osmolality (300-1090) mOsm/kg Urine Creatinine mg/dL Urine Sodium mEq/L - Radiology Data Radiology results reviewed: Yes I reviewed the patient's radiology results. Chest X-Ray 11/17/18 18:47 IMPRESSION: No acute abnormality identified. D/ / Gavin Rodrigues MD / Gavin Rodrigues MD Interpreting Provider: Gavin Rodrigues MD - EKG Data EKG #1 EKG attestation: Yes I reviewed and interpreted this EKG. EKG results narrative: EKG obtained at 1904 shows sinus rhythm with heart rate 79, interval and 66, QRS duration 91, QTC 423, T-wave inversion in aVL, no ST elevation or depression, compared to old EKG on 09/04/2018 which shows no acute changes.
[2018-11-17] MEDS ORDERED: 0.9 % Sodium Chloride 1,000 ML IVC ONE ×3 (18:52→21:42)
--- NOTE | 2018-11-17 18:54 | Emergency Department Note ---
Disposition Clinical Impression: Generalized weakness Disposition: Admitted As Inpatient Condition: Fair Referrals: Alfredo Drake MD [Primary Care Provider] - Forms: ED Satisfaction Letter Time of Disposition: 18:54 General Adult HPI - General Chief complaint: ED Weakness Stated complaint: Weakness, hyperglycemic, R/O sepsis Time Seen by Provider: 11/17/18 18:33 Source: patient, family Mode of arrival: private vehicle Limitations: no limitations Nursing Notes Reviewed: Yes Vital Signs Reviewed: Yes - History of Present Illness HPI Narrative: Attestation note: Patient was seen with the emergency medicine resident/nurse practitioner/physician speech language pathologist assistant/transitional resident/medical student: Dr. JAZMINE ALVARADO. I was present for the significant portions of the performance and interpretation of procedures and EKGs. I have personally performed a face to face evaluation on this patient. I have reviewed and agree with history and physical examination patient management and disposition. BRIEFLY: 71-year-old male recently diagnosed with diabetes is been having weight loss nausea vomiting diarrhea just feeling weak recently treated for C. difficile. He is afebrile stable vital signs appear dehydrated but nontoxic patient be getting much 2 L normal saline bolus screening labs VBG EKG chest x- ray will search for sources of infection with admission anticipated. Provided 45 minutes medical care service for this patient. Admission disposition pending Pain Scale: 5 - Related Data Home Medications Medication Instructions Recorded Confirmed Duloxetine HCl [Cymbalta] 60 mg PO DAILY 08/16/18 09/04/18 Insulin LISPRO [Humalog Kwikpen 5 - 20 unit SQ TID 08/16/18 09/04/18 U-100] Lidocaine Patch [Lidoderm 5% patch] 1 each TP DAILY PRN 08/16/18 09/04/18 Metoprolol [Lopressor] 12.5 mg PO BID 08/16/18 09/04/18 Tamsulosin [Flomax] 0.4 mg PO DAILY 08/16/18 09/04/18 Ezetimibe [Zetia] 10 mg PO DAILY 08/24/18 09/04/18 Ferrous Sulfate [Iron] 325 mg PO DAILY 08/24/18 09/04/18 Finasteride [Proscar] 5 mg PO QPM 08/24/18 09/04/18 Insulin DETEMIR [Levemir Flextouch] 30 unit SQ BID 08/24/18 09/04/18 [place]-3/Dha/Epa/Fish Oil [Fish Oil 1 cap PO DAILY 08/24/18 09/04/18 EC 1,200 mg Softgel] Rivaroxaban [Xarelto] 20 mg PO DAILY 08/25/18 09/04/18 Previous Rx's Medication Instructions Recorded Furosemide [Lasix] 20 mg IVP BIDDIURETIC vial 09/08/18 Allergies Allergy/AdvReac Type Severity Reaction Status Date / Time adhesive tape Allergy Rash Verified 08/24/18 21:19 Iodinated Contrast- Oral and Allergy Difficulty Verified 08/24/18 21:19 IV Dye Breathing [Iodinated Contrast Media - IV Dye] atorvastatin [From Lipitor] AdvReac Dizziness Verified 08/24/18 21:19 Mvxzlxd-Lxk-Ywn Reductase AdvReac Muscle Pain Verified 08/24/18 21:19 Inhibitor Past Medical History - Past Medical History Medical history: Reports: CVA, DVT, diabetes, hyperlipidemia, hypertension, kidney stones, TIA Surgical history: Reports: appendectomy, bariatric surgery, cholecystectomy, herniorrhaphy, orthopedic, other Psychiatric history: Reports: no psych history - Social History Smoking Status: Never smoker Smokeless Tobacco Status: No Alcohol use: Reports: none Drug use: Reports: none Physical Exam - General Limitations: no limitations Course Vital Signs Temperature 97.3 F L 11/17/18 18:00 Pulse Rate 96 11/17/18 18:00 Respiratory Rate 18 11/17/18 18:00 Blood Pressure 127/82 11/17/18 18:00 O2 Sat by Pulse Oximetry 100 11/17/18 18:00 Temperature 97.3 F L 11/17/18 18:00 Pulse Rate 96 11/17/18 18:00 Respiratory Rate 18 11/17/18 18:00 Blood Pressure 127/82 11/17/18 18:00 O2 Sat by Pulse Oximetry 100 11/17/18 18:00 Oxygen Delivery Oxygen Delivery Room Air
[2018-11-17 19:58] LABS: VBG HCO3 12 mEq/L (21-27); VBG PCO2 30 mmHg (41-51); VBG PH 7.21 pH Units (7.32-7.42); VBG PO2 82 mmHg (25-50)
[2018-11-17 20:02] LABS: Basophils # 0.1 K/mcL (0.0-0.2); Basophils % 0.5 %; Eosinophils % 0.2 %; Hematocrit 37.7 % (37.5-50.1); Hemoglobin 11.5 g/dL (12.9-16.9); Immature Granulocytes % 1.2 % (0-4); Lymphocytes # 2.4 K/mcL (0.6-4.6); Lymphocytes % 19.7 %; Mean Corpuscular HGB Conc 30.5 g/dL (31.6-35.5); Mean Corpuscular Hemoglobin 30.2 pg (28.0-33.3); Mean Platelet Volume 10.8 fL (9.4-12.4); Monocytes # 0.7 K/mcL (0.0-1.3); Monocytes % 5.8 %; Neutrophils # 8.9 K/mcL (1.6-8.9); Platelet Count 385 K/mcL (140-400); Red Blood Count 3.81 M/mcL (4.19-5.50); Red Cell Distribution Width 16.3 % (11.5-14.5); Segmented Neutrophils % 72.6 %; White Blood Count 12.2 K/mcL (4.3-11.1)
[2018-11-17 20:13] LABS: Bilirubin,Urine Negative (Negative); Blood,Urine Small (Negative); Clarity,Urine Cloudy (Clear); Color,Urine Yellow (Yellow); Glucose,Urine (UA) >=1000 mg/dL (Normal); Ketones,Urine Trace mg/dL (Negative); Leukocyte Esterase,Urine Moderate (Negative); Nitrite,Urine Negative (Negative); Protein,Urine 30 mg/dL (Neg-Trace); Specific Gravity,Urine 1.026 (1.010-1.025); Urobilinogen,Urine Normal (Normal)
[2018-11-17 20:16] LABS: Bacteria,Urine None Seen per hpf (None-Few); Hyaline Casts,Urine None Seen per lpf (None-Few); Squamous Epithelial Cell,Urine Many per lpf (None-Few); WBC,Urine TNTC per hpf (0-3)
[2018-11-17 20:26] LABS: Yeast,Urine Moderate per hpf (None Seen)
[2018-11-17 20:29] LABS: Chloride 94 mEq/L (98-107); Potassium 5.2 mEq/L (3.5-5.1); Sodium 118 mEq/L (136-145)
[2018-11-17 21:10] LABS: Sodium, Urine 33.1 mEq/L
[2018-11-17 21:21] LABS: BUN/Creatinine Ratio 24 (6-26); Blood Urea Nitrogen 49 mg/dL (8-23); Carbon Dioxide 9 mEq/L (23-29); Troponin I < 0.03 ng/mL (< 0.04); eGFR For African Americans 39 (> 60); eGFR For Non-African Americans 32 (> 60)
[2018-11-17] MEDS ORDERED: *HR* Dextrose 50 % in Water (Syg) 50 ML SYRINGE IVP PRN ×2 (21:32→22:21)
[2018-11-17] MEDS ORDERED: Insulin Human Regular 100 UNIT in 0.9 % Sodium Chloride 100 ML IVC SCH ×2 (21:45→22:30)
[2018-11-17] MEDS ORDERED: cefTRIAXone 1,000 MG in 0.9 % Sodium Chloride Mini Bag 100 ML IVPB ONE (21:54)
[2018-11-17] MEDS ORDERED: Ondansetron 4 MG/2 ML VIAL IVP PRN (22:16)
[2018-11-17] MEDS ORDERED: Naloxone 0.4 MG/ML INJ IVP PRN (22:16)
[2018-11-17] MEDS ORDERED: *HR* Promethazine 25 MG/ML VIAL IVP PRN (22:16)
[2018-11-17] MEDS ORDERED: D5% in 0.45% NACL 1,000 ML IVC PRN (22:21)
[2018-11-17] MEDS ORDERED: Insulin Regular, Human 100 UNIT/ML IV PRN (22:21)
--- NOTE | 2018-11-17 22:36 | Internal Med History&Physical ---
<Amada Waggoner R - Last Filed: 11/18/18 03:12> Date of Encounter: 11/18/18 Time of Encounter: 22:34 Internal Medicine - H&P: HPI History of present illness: Mr. Munoz is a 73 year old male with PMHx of insulin dependant DM, CVA and TIA on Xarelto, HTN and HLD presents to the emergency department for generalized weakness. He was found to have an elevated blood sugar of over 600 on the Accu- Chek and his family physician's office and was referred to the emergency department for further management. Repeat Accu-Chek at the emergency department showed another reading of greater than 200 and formal lab testing shows an elevated glucose of greater than 2400. Patient states that when he checked his blood sugar earlier today it read 117. He has been feeling more weak than nor mal for the past several days and states he has had increased thirst and increased urination during this time. He has never had to be hospitalized for his blood sugars before and states they are generally well controlled with his at home insulin regimen. He denies fevers, chills, chest pain, shortness of breath, abdominal pain, nausea and vomiting at home. He was having diarrhea over the past several days and has been positive for C. diff in the past but states his last diarrhea bowel movement was yesterday and today he had a more solid bowel movement. He denies blood in the bowel movements. He states that he is full code as of now. He was given 1g of Rocephin in the ED for possible UTI, cu ltures pending. Past Med Surg Social Fam HX - Past Medical History Attestation: Yes The following information was validated with the patient. Source: patient Medical history: CVA, DVT, diabetes, hyperlipidemia, hypertension, kidney stones, TIA Additional medical history: Current DVT in right leg Psychiatric history: no psych history - Past Surgical History Surgical History: appendectomy, bariatric surgery, cholecystectomy, herniorrhaphy, orthopedic, other Additional surgical history: Kidney Stone Removal. Right Hip replacement - Social History Smoking Status: Never smoker Smokeless Tobacco Status: No Alcohol use: none Drug use: none - Family History Mother Adopted: No Family Member Ethnicity: Non- Living Status: Hx Family Cardiac Disorders: Yes Hx Family Respiratory Disorders: Yes Hx Family Cancer: No Hx Family GI Disorders: Yes Hx Family Endocrine Disorder: Yes Hx Family Neuromuscular Disorders: No Hx Family Neurologic Disorders: Yes Hx Family HEENT Disorders: No Hx Family Autoimmune Disorders: No Internal Medicine - H&P: Meds Duloxetine HCl [Cymbalta] 60 mg PO DAILY 08/16/18 [History] Insulin LISPRO [Humalog Kwikpen U-100] 5 - 20 unit SQ TID 08/16/18 [History] Lidocaine Patch [Lidoderm 5% patch] 1 each TP DAILY PRN 08/16/18 [History] Metoprolol [Lopressor] 12.5 mg PO BID 08/16/18 [History] Tamsulosin [Flomax] 0.4 mg PO DAILY 08/16/18 [History] Ezetimibe [Zetia] 10 mg PO DAILY 08/24/18 [History] Ferrous Sulfate [Iron] 325 mg PO DAILY 08/24/18 [History] Finasteride [Proscar] 5 mg PO QPM 08/24/18 [History] Insulin DETEMIR [Levemir Flextouch] 30 unit SQ BID 08/24/18 [History] [place]-3/Dha/Epa/Fish Oil [Fish Oil EC 1,200 mg Softgel] 1 cap PO DAILY 08/24/18 [History] Rivaroxaban [Xarelto] 20 mg PO DAILY 08/25/18 [History] Furosemide [Lasix] 20 mg IVP BIDDIURETIC vial 09/08/18 [Rx] Allergy/AdvReac Type Severity Reaction Status Date / Time adhesive tape Allergy Rash Verified 08/24/18 21:19 Iodinated Contrast- Oral and Allergy Difficulty Verified 08/24/18 21:19 IV Dye Breathing [Iodinated Contrast Media - IV Dye] atorvastatin [From Lipitor] AdvReac Dizziness Verified 08/24/18 21:19 Ghnkvxw-Tlr-Aqi Reductase AdvReac Muscle Pain Verified 08/24/18 21:19 Inhibitor All Systems PM: A 10-system review of systems was performed and is negative for pertinent findings except as documented above in the HPI. - Constitutional Constitutional: anorexia, weakness, no chills, no fever(s) - EENT Eyes: no blurry vision, no change in vision Nose, mouth and throat: dry mouth, other (mouth pain with eating) - Cardiovascular Cardiovascular ROS IM: no chest pain, no dyspnea, no dyspnea on exertion, no edema - Respiratory Respiratory: no cough, no dyspnea, no excessive phlegm production, no change in phlegm color - Gastrointestinal Gastrointestinal: diarrhea, no abdominal pain, no constipation, no melena, no nausea, no vomiting - Genitourinary Genitourinary ROS male: urinary frequency, no dysuria, no hematuria - Neurological Neurological ROS: weakness, other (denies somnolence), no confusion - Psychiatric Psychiatric: no anxiety, no confusion - Endocrine Endocrine IM: polydipsia, polyuria - Constitutional Vitals: Temp Pulse Resp BP Pulse Ox 97.3 F L 72 11 148/77 100 11/17/18 18:59 11/17/18 22:07 11/17/18 22:07 11/17/18 22:07 11/17/18 22:07 General appearance: Present: A&O X 3, pleasant, no acute distress, answers questions appropriately Exam: Pt is alert and oriented to self place and time. NAD - Head Head exam: Present: atraumatic, normal inspection, normocephalic - Eye Eye exam: Present: EOMI, PERRL - ENT ENT exam: Present: mucous membranes dry - Neck Neck exam general surgery: Present: normal inspection. Absent: tenderness - Respiratory Respiratory exam: Present: CTAB - Cardiovascular Cardiovascular exam: Present: RRR - GI/Abdominal GI/Abdominal exam: Present: soft. Absent: distended, firm, guarding, rebound, rigid, tenderness - Extremities Exam Extremities exam: Present: warm. Absent: pedal edema, tenderness - Neurological Exam Neurological exam: Present: alert, oriented X3, no focal deficits - Psychiatric Psychiatric exam: Present: normal affect, normal mood - Skin Skin exam: Present: dry, intact, warm Internal Med - H&P Results - Labs CBC & Chem 7: 11/17/18 19:43 11/18/18 02:28 Labs: Short CBC 11/17/18 Range/Units 19:43 WBC 12.2 H (4.3-11.1) K/mcL Hgb 11.5 L (12.9-16.9) g/dL Hct 37.7 (37.5-50.1) % Plt Count 385 (140-400) K/mcL Neutrophils # 8.9 (1.6-8.9) K/mcL BMP 11/17/18 19:43 Sodium 118 L* Potassium 5.2 H Chloride 94 L Carbon Dioxide 9 L* BUN 49 H Creatinine 2.06 H Glucose > 2400 H* Calcium 9.0 Cardiac Enzymes 11/17/18 Range/Units 19:43 Troponin I < 0.03 (< 0.04) ng/mL Urine 11/17/18 Range/Units 20:04 Urine Color Yellow (Yellow) Urine Clarity Cloudy A (Clear) Urine pH 6.0 (5.0-8.0) pH Units Ur Specific [place] 1.026 H (1.010-1.025) Urine Protein 30 H (Neg-Trace) mg/dL Urine Glucose (UA) >=1000 H (Normal) mg/dL - ABG Interpretation ABG results: 11/17/18 19:45 VBG pH 7.21 L VBG pCO2 30 L VBG pO2 82 H VBG HCO3 12 L - Impressions ITS Impressions Chest X-Ray 11/17/18 18:47 IMPRESSION: No acute abnormality identified. D/ / Gavin Rodrigues MD / Gavin Rodrigues MD Interpreting Provider: Gavin Rodrigues MD - Assessment and Plan (1) HHNC (hyperglycemic hyperosmolar nonketotic coma) Current Visit: Yes Status: Acute Assessment and plan: Pt with weakness and elevated BG at outpt physician office too high to read Repeat testing here is >2400 Beta-hydroxybutyrate >2 with vbg 7.21, CO2 30, HCO3 12 Gap of 15 Pt a&ox3 Given 3L NS in ED NS continues to run at 250mls/hr Insulin drip started q4H BMP and vbgs ordered q1H Accu-cheks Potassium mildly elevated at this point, continue to trend HHS protocol ordered Monitor patients mental status closely (2) UTI (urinary tract infection) Current Visit: Yes Status: Acute Assessment and plan: Urine was contaminated but awaiting culture 1g Rocephin given in ED Qualifiers: Urinary tract infection type: acute cystitis Hematuria presence: with hematuria Qualified Code(s): N30.01 - Acute cystitis with hematuria (3) Diabetes mellitus Current Visit: Yes Status: Chronic Assessment and plan: Treatment as above for HHNC Qualifiers: Diabetes mellitus type: type 2 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: with 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 use Diabetes mellitus complication status: with hyperglycemia Qualified Code(s): E11.65 - Type 2 diabetes mellitus with hyperglycemia; Z79.4 - manager terminal (current) use of insulin (4) Hyperkalemia Current Visit: Yes Status: Acute Assessment and plan: K of 5.2 in ED Likely secondary to acidosis Giving insulin and will likely become hypokalemic Prepared for hypokalemia with potassium replacement protocol for HHS (5) Hyponatremia Current Visit: Yes Status: Acute Assessment and plan: Initial Na 118 Likely pseudohyponatremia secondary to greatly elevated glucose IV NS Monitor BMP q4H (6) Acute kidney injury Current Visit: Yes Status: Acute Assessment and plan: Cre 2.06 Likely secondary to dehydration IV NS Continue to monitor (7) Weakness Current Visit: Yes Status: Acute Assessment and plan: Likely secondary to HHNC with physical deconditioning Treatment as above (8) HTN (hypertension) Current Visit: Yes Status: Chronic Assessment and plan: Continue home meds Qualifiers: Hypertension type: essential hypertension Qualified Code(s): I10 - Esse ntial (primary) hypertension (9) DVT prophylaxis Current Visit: Yes Status: Acute Assessment and plan: Continue home Xarelto - Time Spent With Patient Total time spent is greater than 50% in coordination of care (as documented) at patient's floor/unit and/or counseling patient: <MasoodTyrellTadeo Sophie - Last Filed: 11/18/18 06:58> Date of Encounter: 11/17/18 Internal Medicine - H&P: HPI History of present illness: Mr. Munoz is a 73 year old male All Systems PM: A 10-system review of systems was performed and is negative for pertinent findings except as documented above in the HPI. - Constitutional Vitals: Temp Pulse Resp BP Pulse Ox 98 F 84 18 144/66 98 11/18/18 05:00 11/18/18 06:00 11/18/18 06:00 11/18/18 06:00 11/18/18 06:00 Internal Med - H&P Results - Labs CBC & Chem 7: 11/18/18 05:05 11/18/18 05:05 Labs: Short CBC 11/17/18 11/18/18 Range/Units 19:43 05:05 WBC 12.2 H 13.1 H (4.3-11.1) K/mcL Hgb 11.5 L 9.4 L D (12.9-16.9) g/dL Hct 37.7 30.6 L (37.5-50.1) % Plt Count 385 304 (140-400) K/mcL Neutrophils # 8.9 8.7 (1.6-8.9) K/mcL BMP 11/17/18 11/17/18 11/18/18 19:43 23:02 02:28 Sodium 118 L* 127 L D 132 L Potassium 5.2 H 4.3 3.6 Chloride 94 L 105 111 H Carbon Dioxide 9 L* 12 L 14 L BUN 49 H 43 H 38 H Creatinine 2.06 H 1.80 H 1.60 H Glucose > 2400 H* 638 H* 274 H Calcium 9.0 8.0 L 7.7 L 11/18/18 05:05 Sodium 133 L Potassium 4.2 Chloride 113 H Carbon Dioxide 12 L BUN 36 H Creatinine 1.53 H Glucose 203 H Calcium 8.4 L Cardiac Enzymes 11/17/18 Range/Units 19:43 Troponin I < 0.03 (< 0.04) ng/mL Urine 11/17/18 Range/Units 20:04 Urine Color Yellow (Yellow) Urine Clarity Cloudy A (Clear) Urine pH 6.0 (5.0-8.0) pH Units Ur Specific [place] 1.026 H (1.010-1.025) Urine Protein 30 H (Neg-Trace) mg/dL Urine Glucose (UA) >=1000 H (Normal) mg/dL - ABG Interpretation ABG results: 11/17/18 11/17/18 11/18/18 19:45 23:25 02:39 VBG pH 7.21 L 7.22 L 7.21 L VBG pCO2 30 L 30 L 33 L VBG pO2 82 H 76 H 79 H VBG HCO3 12 L 13 L 13 L 11/18/18 05:16 VBG pH 7.36 D VBG pCO2 19 L VBG pO2 176 H VBG HCO3 11 L - Impressions ITS Impressions Chest X-Ray 11/17/18 18:47 IMPRESSION: No acute abnormality identified. D/ / Gavin Rodrigues MD / Gavin Rodrigues MD Interpreting Provider: Gavin Rodrigues MD - Time Spent With Patient Total time spent is greater than 50% in coordination of care (as documented) at patient's floor/unit and/or counseling patient: - Attending Attestation I saw and evaluated the patient. I reviewed the residents note, performed my own physical examination and agree with findings and plan as documented in the residents note. Patient seen and examined on 11/18/18. Patient presented to the ER, found to have significantly elevated blood sugar. HHS/DKA protocol initiated. Sugars have improved, and patient states that he is feeling better. We will continue to monitor, transition to subcutaneous insulin when gap closed and bicarb within normal limits. A1c this morning is 9.6. Patient states that he was recently switched to a new insulin [place] 3 days ago. Perhaps this is the instigating factor in tr iggering his HHS/DKA. He has never had this before now.
[2018-11-17] MEDS: 0.9 % Sodium Chloride 1,000 ML IVC SCH (22:43)
[2018-11-17 23:28] LABS: VBG HCO3 13 mEq/L (21-27); VBG PCO2 30 mmHg (41-51); VBG PH 7.22 pH Units (7.32-7.42); VBG PO2 76 mmHg (25-50)
[2018-11-17 23:47] LABS: Potassium 4.3 mEq/L (3.5-5.1)
[2018-11-18] MEDS: 0.9 % Sodium Chloride 1,000 ML IVC SCH ×7 (00:40→23:20)
[2018-11-18] MEDS ORDERED: Calcium Gluconate 2,000 MG in 0.9 % Sodium Chloride 100 ML IVPB ONE (02:18)
[2018-11-18 02:42] LABS: VBG HCO3 13 mEq/L (21-27); VBG PCO2 33 mmHg (41-51); VBG PH 7.21 pH Units (7.32-7.42); VBG PO2 79 mmHg (25-50)
[2018-11-18 03:03] LABS: Calcium 7.7 mg/dL (8.6-10.3); Potassium 3.6 mEq/L (3.5-5.1)
[2018-11-18] MEDS: D5% in 0.45% NACL w KCl 20 MEQ/1,000 ML MLS IVC PRN ×5 (04:53→22:12)
[2018-11-18 05:18] LABS: Basophils # 0.1 K/mcL (0.0-0.2); Basophils % 0.5 %; Eosinophils # 0.1 K/mcL (0.0-0.6); Eosinophils % 1.1 %; Hematocrit 30.6 % (37.5-50.1); Immature Granulocytes % 0.8 % (0-4); Lymphocytes # 3.3 K/mcL (0.6-4.6); Lymphocytes % 25.3 %; Mean Corpuscular HGB Conc 30.7 g/dL (31.6-35.5); Mean Corpuscular Hemoglobin 29.7 pg (28.0-33.3); Mean Corpuscular Volume 96.5 fL (83.0-100.0); Mean Platelet Volume 10.5 fL (9.4-12.4); Monocytes # 0.8 K/mcL (0.0-1.3); Monocytes % 5.9 %; Neutrophils # 8.7 K/mcL (1.6-8.9); Platelet Count 304 K/mcL (140-400); Red Blood Count 3.17 M/mcL (4.19-5.50); Red Cell Distribution Width 15.6 % (11.5-14.5); Segmented Neutrophils % 66.4 %; White Blood Count 13.1 K/mcL (4.3-11.1)
[2018-11-18 05:19] LABS: Hemoglobin 9.4 g/dL (12.9-16.9)
[2018-11-18 05:19] LABS: VBG HCO3 11 mEq/L (21-27); VBG PCO2 19 mmHg (41-51); VBG PH 7.36 pH Units (7.32-7.42); VBG PO2 176 mmHg (25-50)
[2018-11-18 05:30] LABS: Estimated Average Glucose 229 mg/dl
[2018-11-18 05:34] LABS: Calcium 8.4 mg/dL (8.6-10.3); Magnesium 1.5 mg/dL (1.6-2.6); Phosphorous 1.9 mg/dL (2.7-4.5); Potassium 4.2 mEq/L (3.5-5.1)
[2018-11-18 06:53] LABS: Glucose 935 mg/dL (70-105)
[2018-11-18 06:54] LABS: Osmolality,Calculated 305 (280-300)
[2018-11-18] MEDS: Insulin Human Regular 100 UNIT in 0.9 % Sodium Chloride 100 ML IVC SCH (08:40)
[2018-11-18] MEDS: *HR* Rivaroxaban 10 MG TABLET PO SCH (09:44)
[2018-11-18 10:37] LABS: VBG HCO3 12 mEq/L (21-27); VBG PCO2 28 mmHg (41-51); VBG PH 7.24 pH Units (7.32-7.42); VBG PO2 187 mmHg (25-50)
[2018-11-18 10:41] LABS: Calcium 8.8 mg/dL (8.6-10.3); Potassium 4.1 mEq/L (3.5-5.1)
--- NOTE | 2018-11-18 12:41 | Event Note ---
Date of Encounter: 11/18/18 Time of Encounter: 11:30 H&P reviewed. Patient with history of diabetes, CVA/TIA/DVT on Xarelto, CKD, recent admission for candidemia in the setting of hardware in R ankle, is admitted overnight due to DKA. Unclear trigger, he was transferred to [facility] on 09/08 when he was found to have candidemia and concern for hardware infection/OM. Pt reports that he was treated with prolonged IV abx which was completed about ~ 2 weeks ago. Otherwise, no localizing symptoms reported including chest pain, SOB, cough, abdominal pain, or dysuria. Was given IV Rocephin yesterday for ?possible UTI but pt is asymptomatic. Continue IVF and IV insulin per protocol, check ESR/CRP/procalcitonin, follow up on cultures, and continue to monitor for any signs of infection. R ankle currently appears unremarkable.
--- NOTE | 2018-11-18 12:47 | Electrocardiograph Report ---
[place] [id number] Test Date: 2018-11-17 Pat Name: Angelo Munoz Department: [id number] Room: [facility] Gender: M [place]: : 1945 Requested By: Joan Sales Order Number: [id number] Reading MD: Elida Brice Measurements Intervals [place] Rate: 79 P: 164 GA: 166 QRS: 202 QRSD: 91 T: 116 QT: 369 QTc: 423 Interpretive Statements Right and left arm electrode reversal Sinus or ectopic atrial rhythm Electronically Signed On 11-18-2018 12:45:53 EDT by Elida Brice
[2018-11-18 14:48] LABS: VBG HCO3 9 mEq/L (21-27); VBG PCO2 21 mmHg (41-51); VBG PH 7.26 pH Units (7.32-7.42); VBG PO2 202 mmHg (25-50)
[2018-11-18 15:15] LABS: BUN/Creatinine Ratio 21 (6-26); Blood Urea Nitrogen 29 mg/dL (8-23); Calcium 8.9 mg/dL (8.6-10.3); Carbon Dioxide 14 mEq/L (23-29); Chloride 112 mEq/L (98-107); Glucose 109 mg/dL (70-105); Osmolality,Calculated 284 (280-300); Potassium 4.2 mEq/L (3.5-5.1); Sodium 134 mEq/L (136-145); eGFR For African Americans > 60 (> 60); eGFR For Non-African Americans 50 (> 60)
[2018-11-18] MEDS ORDERED: Finasteride 5 MG TABLET PO SCH (18:00)
[2018-11-18] MEDS ORDERED: Acetaminophen 325 MG TABLET PO PRN (18:05)
[2018-11-18 19:04] LABS: VBG HCO3 11 mEq/L (21-27); VBG PCO2 23 mmHg (41-51); VBG PH 7.27 pH Units (7.32-7.42); VBG PO2 116 mmHg (25-50)
[2018-11-18 19:44] LABS: BUN/Creatinine Ratio 17 (6-26); Blood Urea Nitrogen 22 mg/dL (8-23); Calcium 8.4 mg/dL (8.6-10.3); Carbon Dioxide 13 mEq/L (23-29); Chloride 109 mEq/L (98-107); Glucose 202 mg/dL (70-105); Osmolality,Calculated 281 (280-300); Potassium 4.2 mEq/L (3.5-5.1); Sodium 131 mEq/L (136-145); eGFR For African Americans > 60 (> 60); eGFR For Non-African Americans 55 (> 60)
[2018-11-18] MEDS: *HR* HYDROcodone/Acet 5/325 mg TABLET PO PRN (22:17)
[2018-11-18 23:55] LABS: VBG HCO3 12 mEq/L (21-27); VBG PCO2 30 mmHg (41-51); VBG PO2 204 mmHg (25-50)
[2018-11-19] MEDS: Insulin Human Regular 100 UNIT in 0.9 % Sodium Chloride 100 ML IVC SCH
[2018-11-19] MEDS: 0.9 % Sodium Chloride 1,000 ML IVC SCH ×8 (00:03→06:05)
[2018-11-19 00:04] LABS: BUN/Creatinine Ratio 17 (6-26); Blood Urea Nitrogen 22 mg/dL (8-23); Calcium 8.3 mg/dL (8.6-10.3); Carbon Dioxide 12 mEq/L (23-29); Chloride 110 mEq/L (98-107); Glucose 205 mg/dL (70-105); Osmolality,Calculated 279 (280-300); Potassium 4.2 mEq/L (3.5-5.1); Sodium 130 mEq/L (136-145); eGFR For African Americans > 60 (> 60); eGFR For Non-African Americans 56 (> 60)
[2018-11-19] MEDS: D5% in 0.45% NACL w KCl 20 MEQ/1,000 ML MLS IVC PRN ×3 (01:38→09:42)
[2018-11-19 02:50] LABS: VBG HCO3 16 mEq/L (21-27); VBG PCO2 45 mmHg (41-51); VBG PH 7.17 pH Units (7.32-7.42); VBG PO2 24 mmHg (25-50)
[2018-11-19 02:51] LABS: Basophils # 0.1 K/mcL (0.0-0.2); Basophils % 0.4 %; Eosinophils # 0.1 K/mcL (0.0-0.6); Eosinophils % 0.9 %; Hematocrit 31.9 % (37.5-50.1); Immature Granulocytes % 0.7 % (0-4); Immature Platelets 5.3 % (1.1-6.1); Lymphocytes # 3.1 K/mcL (0.6-4.6); Lymphocytes % 23.1 %; Mean Corpuscular HGB Conc 31.3 g/dL (31.6-35.5); Mean Corpuscular Hemoglobin 29.9 pg (28.0-33.3); Mean Corpuscular Volume 95.2 fL (83.0-100.0); Mean Platelet Volume 10.5 fL (9.4-12.4); Monocytes # 1.3 K/mcL (0.0-1.3); Monocytes % 9.8 %; Neutrophils # 8.7 K/mcL (1.6-8.9); Platelet Count 332 K/mcL (140-400); Red Blood Count 3.35 M/mcL (4.19-5.50); Red Cell Distribution Width 16.2 % (11.5-14.5); Segmented Neutrophils % 65.1 %; White Blood Count 13.4 K/mcL (4.3-11.1)
[2018-11-19 03:06] LABS: BUN/Creatinine Ratio 15 (6-26); Blood Urea Nitrogen 19 mg/dL (8-23); Calcium 8.4 mg/dL (8.6-10.3); Carbon Dioxide 15 mEq/L (23-29); Chloride 112 mEq/L (98-107); Glucose 40 mg/dL (70-105); Osmolality,Calculated 275 (280-300); Potassium 5.2 mEq/L (3.5-5.1); Sodium 133 mEq/L (136-145); eGFR For African Americans > 60 (> 60); eGFR For Non-African Americans 58 (> 60)
[2018-11-19 04:22] LABS: Magnesium 1.7 mg/dL (1.6-2.6)
[2018-11-19] MEDS: *HR* Rivaroxaban 10 MG TABLET PO SCH (09:45)
[2018-11-19] MEDS ORDERED: Dextrose Gel 15 GM/37.5 ML TUBE PO PRN ×4 (11:20→19:39)
[2018-11-19] MEDS ORDERED: *HR* Dextrose 50 % in Water (Syg) 50 ML SYRINGE IVP PRN ×2 (11:20→19:39)
[2018-11-19] MEDS ORDERED: D5% in Water 1,000 ML IVC PRN ×2 (11:20→19:39)
[2018-11-19] MEDS ORDERED: Insulin DETEMIR 100 UNIT/ML X5UNITS SQ SCH (11:30)
[2018-11-19] MEDS: *HR* HYDROcodone/Acet 5/325 mg TABLET PO PRN ×2 (12:30→23:59)
[2018-11-19 12:41] LABS: VBG HCO3 12 mEq/L (21-27); VBG PCO2 23 mmHg (41-51); VBG PO2 193 mmHg (25-50)
[2018-11-19] MEDS: Insulin LISPRO 300 UNITS/3 ML VIAL SQ SCH ×3 (12:41→22:04)
[2018-11-19 12:59] LABS: BUN/Creatinine Ratio 13 (6-26); Blood Urea Nitrogen 15 mg/dL (8-23); Calcium 8.5 mg/dL (8.6-10.3); Carbon Dioxide 13 mEq/L (23-29); Chloride 113 mEq/L (98-107); Glucose 96 mg/dL (70-105); Osmolality,Calculated 275 (280-300); Potassium 5.1 mEq/L (3.5-5.1); Sodium 132 mEq/L (136-145); eGFR For African Americans > 60 (> 60); eGFR For Non-African Americans > 60 (> 60)
--- NOTE | 2018-11-19 15:44 | Infectious Disease Consult ---
Infectious Disease-Consult - Encounter Date/Time Date of Encounter: 11/19/18 Time of Encounter: 16:20 - Data of Consult Requesting Physician: Romaine Copeland Primary Care Provider: Alfredo Drake MD - HPI HPI: Mr. Villagomez is a 73-year-old male with a past medical history of CVA, DVT, diabete s, hyperlipidemia, hypertension, kidney stones, TIA, and A. fib. Patient was admitted to the hospital on 11/17/18 for generalized weakness, elevated glucose and non-bloody diarrhea. Infectious disease are consulted for antibiotic recommendations for recurrent/unresolving UTI. Patient is a 73-year-old male past medical history of CVA, TIA, Afib on Xarelto, HTN, hyperlipidemia, diabetes type 2 on insulin, kidney stone who presents to the ED on 11/17/18 for generalized weakness, elevated blood glucose of > 2400, and non-bloody diarrhea for the last 3 days. He endorsed feeling extremely weak for the last couple days. Patient also endorsed that he was recently diagnosed with C. difficile infection by his PCP and was treated with antibiotics, had finished the course of antibiotics a couple of weeks ago. However, for the past 3 days patient states that he has been having multiple episodes of nonbloody diarrhea along with progressively worsening weakness. Workup in the ED showed that the patient was afebrile with pulse of 96, RR:18, sating at 100% on room air, normotensive at 127/82. His labs showed leukocytosis 12.2, mildly anemic at 11.5. He had elevated beta hydroxybutyric acid >2.0, with a normal anion gap of 15,bicarbonate of 12, and pH 7.22. He was put on insulin drip and was given 2 L of IV fluids and was admitted to the ICU for further management. He also had a UA which showed elevated protein, urine glucose >1000, with moderate amount of leukocyte esterase . Patients urine culture grew yeast species. In the ICU, patient has been on insulin drip, and currently his blood glucose is 96. Patient also received a dose of Rocephin on admission. Of note, patient was recently transferred to [facility] on 09/08 found to have candidemia with concerns for hardware infection in the right ankle. Was admitted to our hospital on 09/04 for a complicated UTI and was treated with Rocephin . Prior to that, patient was hospitalized on 08/16 for a complicated UTI , had laser lithotripsy and stent placement. He was readmitted on 08/25 for left-sided pyelonephritis and discharged on Diflucan and Macrobid for 10 days. On all of his prior admissions, patient blood culture has been positive for Sarahi Glabratta. Patient was A&O*3 when I evaluated him. He denied any suprapubic pain, dysuria, belly or foot pain. Patient's white blood count is 13.4 with the most recent glucose 96 . - ROS Review of Systems: A 10-system review of systems was performed and is negative for pertinent findings except as documented above in the HPI. - Results CBC & Chem 7: 11/22/18 06:30 11/22/18 06:30 - Exam Vitals: Temp Pulse Resp BP Pulse Ox 97.8 F 68 13 145/88 99 11/19/18 11:00 11/19/18 12:00 11/19/18 12:00 11/19/18 12:00 11/19/18 12:00 Exam: Gen.: Vitals noted. No acute distress. Alert, awake and oriented * [address], [address], and time, well developed, well-nourished resting comfortably in bed. Pleasant. HEENT: oropharynx clear, Normocephalic, atraumatic, MMM Neck: supple, no JVD, no lymphadenopathy, no carotid bruit. Cardiac: RRR, no murmur, +S1/S2, No BLE edema, PMI non-displaced Pulmonary: CTA bilaterally, no wheezes, rales or rhonchi, equal chest expansion, unlabored breathing Abdomen: soft, nontender, BS noted, no guarding, undistended. No organomegaly, no pulsatile masses, Back: Bilateral flank tenderness, suprapubic pain Skin: warm and dry, no visible lesions. Feels warm, clammy, no rashes, no lesions, no erythema MSK: ROM not assessed. no joint swelling noted, gait not assessed while in bed. Non tender calf or clubbing, no cyanosis/clubbing/ or edema Neuro: A&O, moves all extremities, no focal deficits, sensation intact Psych: Appropriate mood and behavior, normal speech. Duloxetine HCl [Cymbalta] 60 mg PO DAILY 08/16/18 [History] Insulin LISPRO [Humalog Kwikpen U-100] 0 - 10 unit SQ QID 08/16/18 [History] Metoprolol [Lopressor] 12.5 mg PO BID 08/16/18 [History] Tamsulosin [Flomax] 0.4 mg PO DAILY 08/16/18 [History] Ezetimibe [Zetia] 10 mg PO DAILY 08/24/18 [History] Finasteride [Proscar] 5 mg PO QPM 08/24/18 [History] Victoria-3/Dha/Epa/Fish Oil [Fish Oil EC 1,200 mg Softgel] 2 cap PO BID 08/24/18 [History] Rivaroxaban [Xarelto] 20 mg PO DAILY 08/25/18 [History] Citalopram Hydrobromide [Citalopram HBr] 10 mg PO DAILY 11/19/18 [History] Glucagon,Human Recombinant [Glucagon Emergency Kit] 1 mg IM AD PRN 11/19/18 [History] HYDROcodone/Acet 5/325 mg [Oneida 5-325 mg] 1 tab PO Q6H PRN 11/19/18 [History] Insulin Glargine,Hum.rec.anlog [Toujeo Solostar] 30 unit SQ BID 11/19/18 [History] Allergy/AdvReac Type Severity Reaction Status Date / Time adhesive tape Allergy Rash Verified 08/24/18 21:19 Iodinated Contrast- Oral and Allergy Difficulty Verified 08/24/18 21:19 IV Dye Breathing [Iodinated Contrast Media - IV Dye] atorvastatin [From Lipitor] AdvReac Dizziness Verified 08/24/18 21:19 Nebiujf-Cyr-Fho Reductase AdvReac Muscle Pain Verified 08/24/18 21:19 Inhibitor - Assessment and Plan (1) SIRS (systemic inflammatory response syndrome) Current Visit: Yes Status: Resolved Likely due to hyperosmolar nonketotic state Patient met 2 /4 SIRS criteria with WBC 12.2, pulse of 96. Patient has been afebrile throughout the course of his admission, his most recent white blood count of 13.4 He also had an elevated ESR of 103, CRP: 14, proalcitonin : 0.10 no obvious underlying infectious etiology We will continue to monitor SNOMED Code(s): 775142976 (2) C. difficile diarrhea Current Visit: Yes Status: Acute -Patient was diagnosed with a C. Diff diarrhea not too long ago by his primary care doctor -He endorses completing his course of antibiotics for his C. difficile -He endorsed multiple episodes of non-bloody diarrhea prior to admission to the ICU but has has not had any bowel movements ever since then SNOMED Code(s): 0196584802097 (3) Candiduria Current Visit: Yes Status: Acute -Likely due to her elevated blood glucose. Patient presented to the ED with a glucose of > 2400 -Patient's her most recent urine culture grew yeast species -Blood and urine cultures in the past have been positive for Sarahi glabrata -Patient is currently symptomatic with no symptoms of dysuria/hematuria /suprapubic pain -Currently no indications for treatment li SNOMED Code(s): 381782617 (4) Candidemia Current Visit: No Status: Chronic Patient has had past history of candidemia. Blood cultures drawn 09/04/18 positive for C.glabrata Repeat blood cultures drawn 09/06/18 positive for C.glabrata During the same admission patient had had positive urine culture but no speciation was completed so were not sure if this is same strain. Blood culture on this admission has not had any growth so far SNOMED Code(s): 889453587 (5) Osteomyelitis Current Visit: No Status: Resolved MRI R ankle 09/07/18: no evidence of osteomyelitis; Small foci of osteonecrosis involving the anterior aspect of the distal tibia. 11/18: ESR/CrP 103/14 and procalcitonin of 0.1 will attempt to get records from Dr. Kirkpatrick from [place]. no antibiotics at this point Qualifiers: Osteomyelitis type: acute hematogenous Osteomyelitis location: ankle Laterality: right Qualified Code(s): M86.071 - Acute hematogenous osteomyel itis, right ankle and foot SNOMED Code(s): 74999040 (6) HHNC (hyperglycemic hyperosmolar nonketotic coma) Current Visit: Yes Status: Resolved Pt with weakness and elevated BG at outpt physician office too high to read Repeat testing here is >2400, most recent glucose : 96 Beta-hydroxybutyrate >2 with vbg 7.21, CO2 30, HCO3 12 Gap of 15 Pt a&ox3 Given 3L NS in ED NS continues to run at 250mls/hr Insulin drip started q4H BMP and vbgs ordered q1H Accu-cheks Potassium mildly elevated at this point, continue to trend HHS protocol ordered Monitor patients mental status closely SNOMED Code(s): 789930743 Past Med Surg Social Fam HX - Past Medical History Medical history: CVA, DVT, diabetes, hyperlipidemia, hypertension, kidney stones, pulmonary embolus, TIA Additional medical history: Current DVT in right leg. C_Diff -8 weeks ago Psychiatric history: anxiety, depression - Past Surgical History Surgical History: appendectomy, bariatric surgery, cholecystectomy, herniorrhaphy, orthopedic, other Additional surgical history: Kidney Stone Removal. Right Hip replacement. Right ankle surgery - Social History Smoking Status: Never smoker Smokeless Tobacco Status: No Alcohol use: none Drug use: none - Family History Mother Adopted: No Family Member Ethnicity: Non- Living Status: Hx Family Cardiac Disorders: Yes Hx Family Respiratory Disorders: Yes Hx Family Cancer: No Hx Family GI Disorders: Yes Hx Family Endocrine Disorder: Yes Hx Family Neuromuscular Disorders: No Hx Family Neurologic Disorders: Yes Hx Family HEENT Disorders: No Hx Family Autoimmune Disorders: No Consult Discharge Plan - Plan Referrals: Alfredo Drake MD [Primary Care Provider] - - Attending Attestation I examined this patient and my medical decision-making was reviewed with the Resident Physician. I agree with the documented findings, disposition and treatment plan as described except to the extent set forth below. I examined this patient and my medical decision-making was reviewed with the Resident Physician. I agree with the documented findings, disposition and treatment plan as described except to the extent set forth below. Patient is a 73-year-old gentleman who presented to [facility] on 11/17/2018 with generalized weakness and was admitted for hyperglycemic hyperosmolar nonketotic coma, urinary tract infection. We are asked to evaluate the patient on 11/19/2018 for antibiotic recommendations? Since admission patient is in the ICU, blood sugar on admission was more than 24 00. patient had 1 sirs criteria (leukocytosis), CXR, blood cultures and urine cultures reviewed. Assessment and Plan: SIRS secondary to hyperosmolar nonketotic state Recent candidemia treated appropriately recent osteomyelitis R distal tibial metaphysis with unknown causative organism will recommend to get records from [facility] Recommendations No antibiotics at this time Will not treat candiduria unless clinically the patient changes Continue to observe off antibiotics until the records are here from outside hospital to see if we need to continue treatment for the osteomyelitis
--- NOTE | 2018-11-19 19:42 | Internal Med Progress Note ---
Hospitalist Progress Note - Encounter Date of Encounter: 11/19/18 Time of Encounter: 10:00 - Subjective Interval History: No major events overnight. Patient was seen today with his . He has no fever, chills or night sweats. He feels that he is getting stronger. He had no chest pain, shortness of breath palpitation. He has no abdominal pain or d ysuria. He is hungry and wants to eat. - Exam Vitals: Temp Pulse Resp BP Pulse Ox 97.8 F 80 14 96/67 98 11/19/18 11:00 11/19/18 16:00 11/19/18 15:00 11/19/18 14:00 11/19/18 15:00 Exam: General: Patient is alert, oriented 3. Head: Atraumatic, normal inspection, normocephalic. Eye: EOMI, PERRLA, no scleral icterus noted. ENT: Mucous membranes moist. No odontogenic infection noted. Large amount of oral secretions noted. Neck: Normal inspection, no meningismus. Respiratory: No respiratory distress, rhonchi, or wheezes noted. Cardiovascular: Regular rate and iegular rhythm, S1 and S2 audible. No murmurs, rubs, or gallops. GI: Soft, nondistended, normal bowel sounds. Extremities:No joint swelling, pedal edema, or tenderness noted. Neurological: Alert, oriented 3, no focal deficits. Psychiatric: normal affect, normal mood. Skin: Dry, intact, warm. Normal color. No rashes. - Assessment and Plan (1) Candiduria Current Visit: No Status: Acute (2) Candidemia Current Visit: No Status: Acute (3) Osteomyelitis Current Visit: No Status: Acute (4) HHNC (hyperglycemic hyperosmolar nonketotic coma) Current Visit: Yes Status: Acute (5) SIRS (systemic inflammatory response syndrome) Current Visit: Yes Status: Acute - Summary of Assessment and Plan Summary of Assessment and Plan: Patient is a 73-year-old male past medical history of CVA, TIA, Afib on Xarelto, HTN, hyperlipidemia, diabetes type 2 on insulin, kidney stone who presents to the ED on 11/17/18 for generalized weakness, elevated blood glucose of > 2400, and non-bloody diarrhea for the last 3 days. He endorsed feeling extremely weak for the last couple days. Patient also endorsed that he was recently diagnosed with C. difficile infection by his PCP and was treated with antibiotics, had finished the course of antibiotics a couple of weeks ago. his symptoms are managed as follows: HHS: - His gap closed twice, insulin drip stopped. - We will send the patient on Levemir 20 units twice a day, moderate sliding scale insulin. ADA. Accu-Cheks 3 times a day before meals. - Check BMP for tomorrow. Leukocytosis: - Blood cultures are still pending, urine cultures are growing yeast species - As twice a day, since patient is asymptomatic, no need for treatment. - Check CBC tomorrow. BETTY: - 2/2 above, resolved with IVF. A,fib with RVR: - CONTINUE xarelto for AC, lopressor for RC candiuria: - ID is consulted, patient has history of Sarahi glabrata - As per ID, no indication for treatment at this point since the patient is asymptomatic. History of OM: -MRI R ankle 09/07/18: no evidence of osteomyelitis; Small foci of osteonecrosis involving the anterior aspect of the distal tibia. -11/18: ESR/CrP 103/14 and procalcitonin of 0.1 -will attempt to get records from Dr. Kirkptarick from [place]. -no antibiotics at this point DVT prophylaxis: xarelto - Time Spent with Patient Total time spent is greater than 50% in coordination of care (as documented) at patient's floor/unit and/or counseling patient: Greater than 35 minutes Plan of Care Discussed with: patient Internal Medicine: Result - Labs CBC & Chem 7: 11/19/18 02:21 11/19/18 12:21 Labs: Short CBC 11/19/18 Range/Units 02:21 WBC 13.4 H (4.3-11.1) K/mcL Hgb 10.0 L (12.9-16.9) g/dL Hct 31.9 L (37.5-50.1) % Plt Count 332 (140-400) K/mcL Neutrophils # 8.7 (1.6-8.9) K/mcL BMP 11/18/18 11/18/18 11/19/18 19:05 23:00 02:22 Sodium 131 L 130 L 133 L Potassium 4.2 4.2 5.2 H Chloride 109 H 110 H 112 H Carbon Dioxide 13 L 12 L 15 L BUN 22 22 19 Creatinine 1.28 1.27 1.23 Glucose 202 H 205 H 40 L* Calcium 8.4 L 8.3 L 8.4 L 11/19/18 12:21 Sodium 132 L Potassium 5.1 Chloride 113 H Carbon Dioxide 13 L BUN 15 Creatinine 1.18 Glucose 96 Calcium 8.5 L Consult Discharge Plan - Plan Referrals: Alfredo Drake MD [Primary Care Provider] - (3) Osteomyelitis Qualifiers: Osteomyelitis type: acute hematogenous Osteomyelitis location: ankle Laterality: right Qualified Code(s): M86.071 - Acute hematogenous osteomyelitis, right ankle and foot
[2018-11-19] MEDS ORDERED: Insulin LISPRO 300 UNITS/3 ML VIAL SQ SCH (21:00)
[2018-11-19] MEDS: Insulin DETEMIR 100 UNIT/ML X5UNITS SQ SCH (22:04)
[2018-11-20 06:26] LABS: Mean Corpuscular HGB Conc 31.3 g/dL (31.6-35.5); Mean Corpuscular Hemoglobin 29.1 pg (28.0-33.3); Mean Platelet Volume 10.9 fL (9.4-12.4); Platelet Count 310 K/mcL (140-400); Red Blood Count 3.44 M/mcL (4.19-5.50); Red Cell Distribution Width 16.7 % (11.5-14.5); White Blood Count 8.7 K/mcL (4.3-11.1)
[2018-11-20 06:44] LABS: BUN/Creatinine Ratio 10 (6-26); Blood Urea Nitrogen 13 mg/dL (8-23); Calcium 8.5 mg/dL (8.6-10.3); Carbon Dioxide 17 mEq/L (23-29); Chloride 110 mEq/L (98-107); Glucose 105 mg/dL (70-105); Osmolality,Calculated 282 (280-300); Potassium 5.2 mEq/L (3.5-5.1); Sodium 136 mEq/L (136-145); eGFR For African Americans > 60 (> 60); eGFR For Non-African Americans 55 (> 60)
[2018-11-20] MEDS: Insulin LISPRO 300 UNITS/3 ML VIAL SQ SCH ×4 (08:07→20:50)
[2018-11-20] MEDS: *HR* HYDROcodone/Acet 5/325 mg TABLET PO PRN ×2 (08:09→20:49)
--- NOTE | 2018-11-20 12:33 | Internal Med Progress Note ---
Hospitalist Progress Note - Encounter Date of Encounter: 11/20/18 Time of Encounter: 10:00 - Subjective Interval History: No major events overnight. Patient was seen this a.m. He denied fever, chills or night sweats. He has no nausea, vomiting or abdominal pain. Patient denied chest pain, shortness of breath or palpitation. - Exam Vitals: Temp Pulse Resp BP Pulse Ox 97.8 F 84 19 157/86 98 11/20/18 11:57 11/20/18 11:57 11/20/18 11:57 11/20/18 11:57 11/20/18 11:57 Exam: General: Patient is alert, oriented 3. Head: Atraumatic, normal inspection, normocephalic. Eye: EOMI, PERRLA, no scleral icterus noted. ENT: Mucous membranes moist. No odontogenic infection noted. Large amount of oral secretions noted. Neck: Normal inspection, no meningismus. Respiratory: No respiratory distress, rhonchi, or wheezes noted. Cardiovascular: Regular rate and regular rhythm, S1 and S2 audible. No murmurs, rubs, or gallops. GI: Soft, nondistended, normal bowel sounds. Extremities:No joint swelling, pedal edema, or tenderness noted. Neurological: Alert, oriented 3, no focal deficits. Psychiatric: normal affect, normal mood. Skin: Dry, intact, warm. Normal color. No rashes. - Assessment and Plan (1) Hyperkalemia Current Visit: Yes Status: Acute (2) Candiduria Current Visit: Yes Status: Acute (3) Candidemia Current Visit: No Status: Chronic (4) Osteomyelitis Current Visit: No Status: Acute (5) HHNC (hyperglycemic hyperosmolar nonketotic coma) Current Visit: Yes Status: Resolved (6) SIRS (systemic inflammatory response syndrome) Current Visit: Yes Status: Resolved (7) DVT prophylaxis Current Visit: Yes Status: Acute - Summary of Assessment and Plan Summary of Assessment and Plan: Patient is a 73-year-old male past medical history of CVA, TIA, Afib on Xarelto, HTN, hyperlipidemia, IDDM, kidney stone s/p laser lithotripsy and stent placement who presents to the ED on 11/17/18 for generalized weakness, elevated blood glucose of > 2400, and non-bloody diarrhea for the last 3 days. He endorsed feeling extremely weak for the last couple days. Patient also endorsed that he was recently diagnosed with C. difficile infection by his PCP and was treated with antibiotics, had finished the course of antibiotics a couple of weeks ago. his symptoms are managed as follows: Hyperkalemia: New event - Likely from acidosis related to hyperchloremia. - Check BMP tomorrow. candiuria: - ID is consulted, patient has history of Sarahi glabrata - As per ID, no indication for treatment at this point since the patient is asymptomatic. - He is afebrile, hemodynamically stable. HHS/DKA: Resolved - His gap closed twice, insulin drip stopped on 11/19. - on Levemir 20 units twice a day, moderate sliding scale insulin. Diabetic diet. Accu-Cheks 3 TIDacHS. - Check BMP for tomorrow. Leukocytosis: Resolved - Blood cultures are still pending, urine cultures are growing yeast species. - Patient is clinically stable, afebrile - Check CBC tomorrow. BETTY: Resolved - 2/2 above, resolved with IVF. A,fib with RVR: Rate controlled - Continue xarelto for AC, lopressor for RC History of OM: -MRI R ankle 09/07/18: no evidence of osteomyelitis; Small foci of osteonecrosis involving the anterior aspect of the distal tibia. -11/18: ESR/CrP 103/14 and procalcitonin of 0.1 -will attempt to get records from Dr. Kirkpatrick from [place]. -no antibiotics at this point DVT prophylaxis: xarelto Disposition: Patient is mobility group 1, consult PT/OT I reviewed independently all laboratory workup, pertinent images including x- rays and CT scans. I also reviewed independently and EKGs and my findings are in the body of my assessment and plan. I ordered the laboratory workup and images myself. I discussed finding with patient's, their families, RN's and consultants involved in the care of the patient. - Time Spent with Patient Total time spent is greater than 50% in coordination of care (as documented) at patient's floor/unit and/or counseling patient: Greater than 35 minutes Plan of Care Discussed with: patient Internal Medicine: Result - Labs CBC & Chem 7: 11/20/18 05:52 11/20/18 05:52 Labs: Short CBC 11/20/18 Range/Units 05:52 WBC 8.7 (4.3-11.1) K/mcL Hgb 10.0 L (12.9-16.9) g/dL Hct 32.0 L (37.5-50.1) % Plt Count 310 (140-400) K/mcL [facility] 11/19/18 11/20/18 12:21 05:52 Sodium 132 L 136 Potassium 5.1 5.2 H Chloride 113 H 110 H Carbon Dioxide 13 L 17 L BUN 15 13 Creatinine 1.18 1.28 Glucose 96 105 Calcium 8.5 L 8.5 L Consult Discharge Plan - Plan Referrals: Alfredo Drake MD [Primary Care Provider] - (4) Osteomyelitis Qualifiers: Osteomyelitis type: acute hematogenous Osteomyelitis location: ankle Laterality: right Qualified Code(s): M86.071 - Acute hematogenous osteomyelitis, right ankle and foot
[2018-11-20] MEDS: *HR* Rivaroxaban 10 MG TABLET PO SCH (17:02)
[2018-11-20] MEDS: Insulin DETEMIR 100 UNIT/ML X5UNITS SQ SCH (20:49)
[2018-11-21 05:00] LABS: Hematocrit 30.5 % (37.5-50.1); Hemoglobin 10.1 g/dL (12.9-16.9); Mean Corpuscular HGB Conc 33.1 g/dL (31.6-35.5); Mean Corpuscular Hemoglobin 30.1 pg (28.0-33.3); Mean Platelet Volume 11.5 fL (9.4-12.4); Platelet Count 310 K/mcL (140-400); Red Blood Count 3.35 M/mcL (4.19-5.50); Red Cell Distribution Width 16.9 % (11.5-14.5)
[2018-11-21 05:09] LABS: BUN/Creatinine Ratio 9 (6-26); Blood Urea Nitrogen 12 mg/dL (8-23); Calcium 8.2 mg/dL (8.6-10.3); Carbon Dioxide 15 mEq/L (23-29); Chloride 112 mEq/L (98-107); Glucose 146 mg/dL (70-105); Osmolality,Calculated 280 (280-300); Potassium 4.7 mEq/L (3.5-5.1); Sodium 134 mEq/L (136-145); eGFR For African Americans > 60 (> 60); eGFR For Non-African Americans 54 (> 60)
[2018-11-21] MEDS: Insulin LISPRO 300 UNITS/3 ML VIAL SQ SCH ×4 (07:39→22:38)
--- NOTE | 2018-11-21 13:10 | Internal Med Progress Note ---
Hospitalist Progress Note - Encounter Date of Encounter: 11/21/18 Time of Encounter: 10:00 - Subjective Interval History: No major events overnight. Patient was seen this a.m. He denied fever, chills or night sweats. He has no nausea, vomiting or abdominal pain. Patient denied chest pain, shortness of breath or palpitation. - Exam Vitals: Temp Pulse Resp BP Pulse Ox 97.9 F 70 18 147/80 98 11/21/18 11:52 11/21/18 11:52 11/21/18 11:52 11/21/18 11:52 11/21/18 11:52 Exam: General: Patient is alert, oriented 3. Head: Atraumatic, normal inspection, normocephalic. Eye: EOMI, PERRLA, no scleral icterus noted. ENT: Mucous membranes moist. No odontogenic infection noted. Large amount of oral secretions noted. Neck: Normal inspection, no meningismus. Respiratory: No respiratory distress, rhonchi, or wheezes noted. Cardiovascular: Regular rate and regular rhythm, S1 and S2 audible. No murmurs, rubs, or gallops. GI: Soft, nondistended, normal bowel sounds. Extremities:No joint swelling, pedal edema, or tenderness noted. Neurological: Alert, oriented 3, no focal deficits. Psychiatric: normal affect, normal mood. Skin: Dry, intact, warm. Normal color. No rashes. - Assessment and Plan (1) Candiduria Current Visit: Yes Status: Acute (2) Hyperkalemia Current Visit: Yes Status: Resolved (3) Candidemia Current Visit: No Status: Chronic (4) Osteomyelitis Current Visit: No Status: Resolved (5) HHNC (hyperglycemic hyperosmolar nonketotic coma) Current Visit: Yes Status: Resolved (6) SIRS (systemic inflammatory response syndrome) Current Visit: Yes Status: Resolved (7) DVT prophylaxis Current Visit: Yes Status: Acute - Summary of Assessment and Plan Summary of Assessment and Plan: Patient is a 73-year-old male past medical history of CVA, TIA, Afib on Xarelto, HTN, hyperlipidemia, IDDM, kidney stone s/p laser lithotripsy and stent placement who presents to the ED on 11/17/18 for generalized weakness, elevated blood glucose of > 2400, and non-bloody diarrhea for the last 3 days. He endorsed feeling extremely weak for the last couple days. Patient also endorsed that he was recently diagnosed with C. difficile infection by his PCP and was treated with antibiotics, had finished the course of antibiotics a couple of weeks ago. his symptoms are managed as follows: BETTY: - Cr is 1.3 today, Bl 1 - will give RL at rate of 100 ml/hr and monitor BMP for tomorrow. NAGMA: - Likely related to hyperchloremia, patient has no diarrhea. - continue to monitor BMP. Hyperkalemia: resolved - Likely from acidosis related to hyperchloremia. - Check BMP tomorrow. candiuria: - ID is consulted, patient has history of Sarahi glabrata - As per ID, no indication for treatment at this point since the patient is asymptomatic. - He is afebrile, hemodynamically stable. HHS/DKA: Resolved - His gap closed twice, insulin drip stopped on 11/19. - on Levemir 20 units twice a day, moderate sliding scale insulin. Diabetic diet. Accu-Cheks 3 TIDacHS. - Check BMP for tomorrow. Leukocytosis: Resolved - Blood cultures are -, urine cultures are growing yeast species. - Patient is clinically stable, afebrile. Check CBC tomorrow. A,fib with RVR: Rate controlled - Continue xarelto for AC, lopressor for RC History of OM: -MRI R ankle 09/07/18: no evidence of osteomyelitis; Small foci of osteonecrosis involving the anterior aspect of the distal tibia. -11/18: ESR/CrP 103/14 and procalcitonin of 0.1 -will attempt to get records from Dr. Kirkpatrick from [place]. -no antibiotics at this point DVT prophylaxis: xarelto Disposition: Patient is mobility group 1, consult PT/OT - Time Spent with Patient Total time spent is greater than 50% in coordination of care (as documented) at patient's floor/unit and/or counseling patient: Greater than 35 minutes Plan of Care Discussed with: patient Internal Medicine: Result - Labs CBC & Chem 7: 11/21/18 04:15 11/21/18 04:15 Labs: Short CBC 11/21/18 Range/Units 04:15 WBC 10.0 (4.3-11.1) K/mcL Hgb 10.1 L (12.9-16.9) g/dL Hct 30.5 L (37.5-50.1) % Plt Count 310 (140-400) K/mcL [facility] 11/21/18 04:15 Sodium 134 L Potassium 4.7 Chloride 112 H Carbon Dioxide 15 L BUN 12 Creatinine 1.31 H Glucose 146 H Calcium 8.2 L Consult Discharge Plan - Plan Referrals: Alfredo Drake MD [Primary Care Provider] - (4) Osteomyelitis Qualifiers: Osteomyelitis type: acute hematogenous Osteomyelitis location: ankle Laterality: right Qualified Code(s): M86.071 - Acute hematogenous osteomyelitis, right ankle and foot
[2018-11-21] MEDS ORDERED: Ringers Solution, Lactated 1,000 ML IVC SCH (13:15)
[2018-11-21] MEDS ORDERED: 0.9 % Sodium Chloride 1,000 ML IVC SCH (13:15)
[2018-11-21] MEDS: *HR* Rivaroxaban 10 MG TABLET PO SCH (16:36)
[2018-11-21] MEDS: *HR* HYDROcodone/Acet 5/325 mg TABLET PO PRN (20:59)
[2018-11-21] MEDS: Insulin DETEMIR 100 UNIT/ML X5UNITS SQ SCH (22:38)
[2018-11-22 07:29] LABS: Hemoglobin 10.7 g/dL (12.9-16.9); Mean Corpuscular HGB Conc 31.5 g/dL (31.6-35.5); Mean Corpuscular Hemoglobin 29.6 pg (28.0-33.3); Mean Corpuscular Volume 93.9 fL (83.0-100.0); Mean Platelet Volume 11.2 fL (9.4-12.4); Platelet Count 396 K/mcL (140-400); Red Blood Count 3.62 M/mcL (4.19-5.50); Red Cell Distribution Width 17.1 % (11.5-14.5); White Blood Count 9.4 K/mcL (4.3-11.1)
[2018-11-22 07:48] LABS: BUN/Creatinine Ratio 13 (6-26); Blood Urea Nitrogen 17 mg/dL (8-23); Calcium 8.8 mg/dL (8.6-10.3); Carbon Dioxide 22 mEq/L (23-29); Chloride 109 mEq/L (98-107); Glucose 89 mg/dL (70-105); Osmolality,Calculated 287 (280-300); Potassium 4.1 mEq/L (3.5-5.1); Sodium 138 mEq/L (136-145); eGFR For African Americans > 60 (> 60); eGFR For Non-African Americans 56 (> 60)
[2018-11-22] MEDS: Insulin LISPRO 300 UNITS/3 ML VIAL SQ SCH ×2 (08:22→11:54)
--- NOTE | 2018-11-22 09:00 | Infectious Disease Progress No ---
ID Progress Note Date of Encounter: 11/22/18 Time of Encounter: 09:30 - Subjective Subjective: Patient was seen and examined at the bedside. He endorses no acute distress, continues to be afebrile, satting at 95% on room air. Patient is hemodynamically stable to be discharged home today - Objective CBC & Chem 7: 11/22/18 06:30 11/22/18 06:30 - Exam Vitals: Temp Pulse Resp BP Pulse Ox 98.3 F 73 16 163/91 98 11/22/18 07:51 11/22/18 07:51 11/22/18 07:51 11/22/18 07:51 11/22/18 07:51 Exam: Gen.: Vitals noted. No acute distress. Alert, awake and oriented * [address], [address], and time, well developed, well-nourished resting comfortably in bed. Pleasant. HEENT: oropharynx clear, Normocephalic, atraumatic, MMM Neck: supple, no JVD, no lymphadenopathy, no carotid bruit. Cardiac: RRR, no murmur, +S1/S2, No BLE edema, PMI non-displaced Pulmonary: CTA bilaterally, no wheezes, rales or rhonchi, equal chest expansion, unlabored breathing Abdomen: soft, nontender, BS noted, no guarding, undistended. No organomegaly, no pulsatile masses Skin: warm and dry, no visible lesions. Feels warm, clammy, no rashes, no lesions, no erythema MSK: ROM not assessed. no joint swelling noted, gait not assessed while in bed. Non tender calf or clubbing, no cyanosis/clubbing/ or edema Neuro: A&O, moves all extremities, no focal deficits, sensation intact Psych: Appropriate mood and behavior, normal speech. - Assessment and Plan (1) SIRS (systemic inflammatory response syndrome) Status: Resolved Currently resolved . Was likely due to hyperosmolar nonketotic state. On admission, patient met 2 /4 SIRS criteria with WBC 12.2, pulse of 96. Patient has been afebrile throughout the course of his admission, his most recent white blood count of 9.4 He also had an elevated ESR of 103, CRP: 14, proalcitonin : 0.10 SNOMED Code(s): 589995670 (2) C. difficile diarrhea Status: Acute -Patient was diagnosed with a C. Diff diarrhea not too long ago by his primary care doctor -He endorses completing his course of antibiotics for his C. difficle -He endorsed multiple episodes of non-bloody diarrhea prior to admission to the ICU but has has not had any loose bowel movements ever since then SNOMED Code(s): 1124586125115 (3) Candiduria Status: Acute -Likely due to her elevated blood glucose. Patient presented to the ED with a glucose of > 2400 -Patient's most recent urine culture grew yeast species -Blood and urine cultures in the past have been positive for Sarahi glabrata -Patient is currently asymptomatic with no dysuria/hematuria /suprapubic pain -Currently no indications for treatment li SNOMED Code(s): 866745351 (4) Candidemia Status: Chronic Patient has had past history of candidemia. Blood cultures drawn 09/04/18 positive for C.glabrata Repeat blood cultures drawn 09/06/18 positive for C.glabrata During the same admission patient had had positive urine culture but no speculation was completed so were not sure if this is same strain. Blood culture on this admission has not had any growth so far SNOMED Code(s): 513574537 (5) Osteomyelitis Status: Ruled-out MRI R ankle 09/07/18: no evidence of osteomyelitis; Small foci of osteonecrosis involving the anterior aspect of the distal tibia. 11/18: ESR/CrP 103/14 and procalcitonin of 0.1 will attempt to get records from Dr. Kirkpatrick from [place]. no indications for antibiotics at this point Qualifiers: Osteomyelitis type: acute hematogenous Osteomyelitis location: ankle Laterality: right Qualified Code(s): M86.071 - Acute hematogenous osteomyelitis, right ankle and foot SNOMED Code(s): 95797571 (6) HHNC (hyperglycemic hyperosmolar nonketotic coma) Status: Resolved Pt with weakness and elevated BG at outpt physician office too high to read Repeat testing here is >2400, most recent glucose : 89 Beta-hydroxybutyrate >2 with vbg 7.21, CO2 30, HCO3 12 Gap of 15 Pt a&ox3 patient has been stepped down to the floor with normal glucose levels now SNOMED Code(s): 597806257 Consult Discharge Plan - Plan Referrals: Alfredo Drake MD [Primary Care Provider] - 12/02/18 2:00 pm - Attending Attestation I examined this patient and my medical decision-making was reviewed with the Resident Physician. I agree with the documented findings, disposition and treatment plan as described except to the extent set forth below. Assessment and Plan: SIRS secondary to hyperosmolar nonketotic state Recent candidemia treated appropriately recent osteomyelitis R distal tibial metaphysis with unknown causative organism will recommend to get records from [facility] Recommendations No antibiotics at this time Will not treat candiduria unless clinically the patient changes Continue to observe off antibiotics until the records are here from outside hospital to see if we need to continue treatment for the osteomyelitis
[2018-11-22 11:50] VITALS: BP 113/76
[2018-11-22] MEDS: *HR* HYDROcodone/Acet 5/325 mg TABLET PO PRN (13:31)
--- NOTE | 2018-11-22 14:21 | Discharge Summary ---
- NOTES TO OUTPATIENT PROVIDER Notes to Outpatient Provider: Follow-up on insulin doses. Orders not resulted at time of discharge: Pending orders 11/17/18 19:27 Culture,Blood [BC] Stat Date of Encounter: 11/22/18 Time of Encounter: 10:00 - Discharge Diagnosis (1) HHNC (hyperglycemic hyperosmolar nonketotic coma) Priority: Primary Status: Resolved (2) Candiduria Priority: Secondary Status: Acute (3) Hyperkalemia Priority: Secondary Status: Resolved (4) Candidemia Priority: Secondary Status: Chronic (5) Osteomyelitis Priority: Secondary Status: Ruled-out Qualifiers: Osteomyelitis type: acute hematogenous Osteomyelitis location: ankle Laterality: right Qualified Code(s): M86.071 - Acute hematogenous osteomyelitis, right ankle and foot (6) DVT prophylaxis Priority: Secondary Status: Acute Hospital course: Mr. Munoz is a 73 year old male with history of A. fib, TIA, CVA, hyp erlipidemia, insulin-dependent diabetes mellitus, kidney stones status post laser lithotripsy and stent placement, candidemia who came into the hospital with generalized weakness. His blood glucose at presentation was >1000 and patient was admitted to the ICU and was managed as per DKA/ectasias protocol with significant improvement in his blood sugars. Patient was also in A. fib with RVR which resolved with IV fluids and correcting the underlying illness. Patient was found to have Sarahi in his urine and infectious disease was consulted and they recommended no antibiotic/ antifungal therapy since the patient was asymptomatic. His leukocytosis improved throughout hospitalization without antibiotic/antifungal administration. He also had acute kidney injury which also resolved with IV fluids. Today, she does hemodynamically stable. Asymptomatic. He will be discharged home in stable condition. He will have home PT/OT. He will follow with his family doctor in 3-5 days. Discharge discussed with: patient - Time Spent with Patient Total time spent providing and/or coordinating discharge services: 45 minutes - Discharge Medications Prescriptions: Continued Metoprolol [Lopressor] 12.5 mg PO BID Insulin LISPRO [Humalog Kwikpen U-100] 0 - 10 unit SQ QID Tamsulosin [Flomax] 0.4 mg PO DAILY Duloxetine HCl [Cymbalta] 60 mg PO DAILY Ezetimibe [Zetia] 10 mg PO DAILY Finasteride [Proscar] 5 mg PO QPM [place]-3/Dha/Epa/Fish Oil [Fish Oil EC 1,200 mg Softgel] 2 cap PO BID Rivaroxaban [Xarelto] 20 mg PO DAILY Citalopram Hydrobromide [Citalopram HBr] 10 mg PO DAILY Glucagon,Human Recombinant [Glucagon Emergency Kit] 1 mg IM AD PRN PRN Reason: BLOOD GLUCOSE HYDROcodone/Acet 5/325 mg [[place] 5-325 mg] 1 tab PO Q6H PRN PRN Reason: Pain Insulin Glargine,Hum.rec.anlog [[place] Solostar] 30 unit SQ BID Home Medications: Duloxetine HCl [Cymbalta] 60 mg PO DAILY 08/16/18 [History] Insulin LISPRO [Humalog Kwikpen U-100] 0 - 10 unit SQ QID 08/16/18 [History] Metoprolol [Lopressor] 12.5 mg PO BID 08/16/18 [History] Tamsulosin [Flomax] 0.4 mg PO DAILY 08/16/18 [History] Ezetimibe [Zetia] 10 mg PO DAILY 08/24/18 [History] Finasteride [Proscar] 5 mg PO QPM 08/24/18 [History] [place]-3/Dha/Epa/Fish Oil [Fish Oil EC 1,200 mg Softgel] 2 cap PO BID 08/24/18 [History] Rivaroxaban [Xarelto] 20 mg PO DAILY 08/25/18 [History] Citalopram Hydrobromide [Citalopram HBr] 10 mg PO DAILY 11/19/18 [History] Glucagon,Human Recombinant [Glucagon Emergency Kit] 1 mg IM AD PRN 11/19/18 [History] HYDROcodone/Acet 5/325 mg [[place] 5-325 mg] 1 tab PO Q6H PRN 11/19/18 [History] Insulin Glargine,Hum.rec.anlog [[place]jeo Solostar] 30 unit SQ BID 11/19/18 [History] Allergies/Adverse Reactions: Allergy/AdvReac Type Severity Reaction Status Date / Time adhesive tape Allergy Rash Verified 08/24/18 21:19 Iodinated Contrast- Oral and Allergy Difficulty Verified 08/24/18 21:19 IV Dye Breathing [Iodinated Contrast Media - IV Dye] atorvastatin [From Lipitor] AdvReac Dizziness Verified 08/24/18 21:19 [id number]-[id number] Reductase AdvReac Muscle Pain Verified 08/24/18 21:19 Inhibitor Date of admission: 11/18/18 04:38 Primary care physician: Alfredo Drake MD Consults: 11/20/18 07:15 Consult to Occupational Therapy [CONS] Routine Comment: Evaluate, develop and implement POC Reason for Consult: evaluate for skilled Does patient have active BEDREST order?: No Is patient medically & hemodynamically stable?: Yes Consult to Physical Therapy [CONS] Routine Comment: Evaluate, develop and implement POC Reason for Consult: evaluate for skilled Does patient have active BEDREST order?: No Is patient medically & hemodynamically stable?: Yes - Constitutional Vitals: Temp Pulse Resp BP Pulse Ox 98.7 F 94 16 113/76 95 11/22/18 11:48 11/22/18 11:48 11/22/18 11:48 11/22/18 11:48 11/22/18 11:48 General appearance: Present: A&O X 3, pleasant, no acute distress, answers questions appropriately Exam: General: Patient is alert, oriented 3. Head: Atraumatic, normal inspection, normocephalic. Eye: EOMI, PERRLA, no scleral icterus noted. ENT: Mucous membranes moist. No odontogenic infection noted. Large amount of oral secretions noted. Neck: Normal inspection, no meningismus. Respiratory: No respiratory distress, rhonchi, or wheezes noted. Cardiovascular: Regular rate and regular rhythm, S1 and S2 audible. No murmurs, rubs, or gallops. GI: Soft, nondistended, normal bowel sounds. Extremities:No joint swelling, pedal edema, or tenderness noted. Neurological: Alert, oriented 3, no focal deficits. Psychiatric: normal affect, normal mood. Skin: Dry, intact, warm. Normal color. No rashes. - Patient Status Disposition: Home Health Service Condition: Good Functional capacity at discharge: uses cane/walker Overall status at discharge: patient is back to baseline - Discharge Instructions Follow Up With: Alfredo Drake MD [Primary Care Provider] - - Diet and Activity Activity: as per physical therapy Diet: diabetic diet
--- NOTE | 2018-11-22 14:27 | Physician Discharge Referral ---
Home Health/Hosp Referral Info Transfer to: Home Health Provider in Charge Post Discharge: PCP - Diagnosis (1) HHNC (hyperglycemic hyperosmolar nonketotic coma) Priority: Primary Status: Resolved (2) Candiduria Priority: Secondary Status: Acute (3) Hyperkalemia Priority: Secondary Status: Resolved (4) Candidemia Priority: Secondary Status: Chronic (5) Osteomyelitis Priority: Secondary Status: Ruled-out (6) DVT prophylaxis Priority: Secondary Status: Acute - Respiratory Orders Smoking Cessation: Smoking cessation has been advised. For more information, call the [place] Tobacco Quit Line at 8-822-PZWF-NOW. - Diet/Nutrition Diet/Nutrition Orders: Regular (diabetic diet) - Activity Activity Orders: Ambulate - Services Needed Following services are medically necessary services: Physical Therapy, Occupational Therapy - Transfer Medications Home Medications: Duloxetine HCl [Cymbalta] 60 mg PO DAILY 08/16/18 [History] Insulin LISPRO [Humalog Kwikpen U-100] 0 - 10 unit SQ QID 08/16/18 [History] Metoprolol [Lopressor] 12.5 mg PO BID 08/16/18 [History] Tamsulosin [Flomax] 0.4 mg PO DAILY 08/16/18 [History] Ezetimibe [Zetia] 10 mg PO DAILY 08/24/18 [History] Finasteride [Proscar] 5 mg PO QPM 08/24/18 [History] [place]-3/Dha/Epa/Fish Oil [Fish Oil EC 1,200 mg Softgel] 2 cap PO BID 08/24/18 [History] Rivaroxaban [Xarelto] 20 mg PO DAILY 08/25/18 [History] Citalopram Hydrobromide [Citalopram HBr] 10 mg PO DAILY 11/19/18 [History] Glucagon,Human Recombinant [Glucagon Emergency Kit] 1 mg IM AD PRN 11/19/18 [History] HYDROcodone/Acet 5/325 mg [[place] 5-325 mg] 1 tab PO Q6H PRN 11/19/18 [History] Insulin Glargine,Hum.rec.anlog [Toujeo Solostar] 30 unit SQ BID 11/19/18 [History] Allergies/Adverse Reactions: Allergy/AdvReac Type Severity Reaction Status Date / Time adhesive tape Allergy Rash Verified 08/24/18 21:19 Iodinated Contrast- Oral and Allergy Difficulty Verified 08/24/18 21:19 IV Dye Breathing [Iodinated Contrast Media - IV Dye] atorvastatin [From Lipitor] AdvReac Dizziness Verified 08/24/18 21:19 [id number] Reductase AdvReac Muscle Pain Verified 08/24/18 21:19 Inhibitor Certification: Further, I certify that my clinical findings support that this patient is homebound (i.e. absences from home require considerable and taxing effort and are for medical reasons or [employer] services or infrequently or short duration when for other reasons) because: Homebound Reason: Patient requires assistance of a person or device to safely leave home Attestation: My signature below is to certify that this patient is under my care and that I, or nurse practitioner, or a physician's oncology physician assistant working with me, has a [id number] encounter with this patient.
== END 2018-11-22 14:48 | disposition home health service (06) | DRG 638 ==
LOC: EMEROOARM 17:56 → ICNU 17:56 → SUATTDRO 11-18 04:38 → 2ANU 11-19 18:34
PROVIDERS: ADMIT Pediatrics; ATTEND Internal Medicine

== ENCOUNTER 2020-05-15 10:46 | Observation (INO) ==
[2020-05-15 12:10] LABS: Basophils # 0.1 K/mcL (0.0-0.2); Basophils % 0.5 %; Eosinophils % 0.1 %; Hematocrit 44.5 % (37.5-50.1); Hemoglobin 13.4 g/dL (12.9-16.9); Immature Granulocytes % 2.2 % (0-4); Lymphocytes # 2.5 K/mcL (0.6-4.6); Lymphocytes % 10.9 %; Mean Corpuscular HGB Conc 30.1 g/dL (31.6-35.5); Mean Corpuscular Hemoglobin 30.1 pg (28.0-33.3); Mean Platelet Volume 10.2 fL (9.4-12.4); Monocytes # 2.1 K/mcL (0.0-1.3); Neutrophils # 17.8 K/mcL (1.6-8.9); Platelet Count 523 K/mcL (140-400); Red Blood Count 4.45 M/mcL (4.19-5.50); Red Cell Distribution Width 13.9 % (11.5-14.5); Segmented Neutrophils % 77.3 %
[2020-05-15] MEDS ORDERED: 0.9 % Sodium Chloride 1,000 ML IVC ONE (12:17)
[2020-05-15] MEDS ORDERED: 0.9 % Sodium Chloride 1,000 ML ONE (12:19)
[2020-05-15 12:21] LABS: VBG HCO3 10 mEq/L (21-27); VBG PCO2 28 mmHg (41-51); VBG PH 7.17 pH Units (7.32-7.42); VBG PO2 110 mmHg (25-50)
[2020-05-15 12:35] LABS: BUN/Creatinine Ratio 25 (6-26); Blood Urea Nitrogen 66 mg/dL (8-23); Calcium 9.6 mg/dL (8.6-10.3); Carbon Dioxide 10 mEq/L (23-29); Chloride 104 mEq/L (98-107); Glucose 428 mg/dL (70-105); Magnesium 1.8 mg/dL (1.6-2.6); Osmolality,Calculated 305 (280-300); Potassium 5.7 mEq/L (3.5-5.1); Sodium 129 mEq/L (136-145); Troponin I < 0.03 ng/mL (< 0.04); eGFR For African Americans 29 (> 60); eGFR For Non-African Americans 24 (> 60)
[2020-05-15] MEDS ORDERED: Naloxone 0.4 MG/ML INJ IVP PRN (12:52)
[2020-05-15] MEDS: Insulin Human Regular 100 UNIT in 0.9 % Sodium Chloride 100 ML IVC SCH ×2 (13:27→15:41)
[2020-05-15] MEDS ORDERED: Lidocaine Jelly 11 ml Syringe MM ONE (13:32)
[2020-05-15] MEDS ORDERED: Nystatin POWDER 30 GM BOTTLE TP ONE (13:35)
[2020-05-15] MEDS ORDERED: *HR* Dextrose 50 % in Water (Vial) 50 ML VIAL IVP PRN (13:47)
[2020-05-15] MEDS ORDERED: 0.9 % Sodium Chloride 1,000 ML IVC SCH (14:00)
[2020-05-15] MEDS ORDERED: 0.45 % Sodium Chloride w/KCl 20 MEQ/1,000 ML MLS IVC SCH (14:00)
[2020-05-15 16:44] LABS: Calcium 9.5 mg/dL (8.6-10.3); Potassium 5.1 mEq/L (3.5-5.1)
[2020-05-15] MEDS: D5% in 0.45% NACL w KCl 20 MEQ/1,000 ML MLS IVC PRN (17:59)
[2020-05-15] MEDS ORDERED: Insulin Human Regular 100 UNIT in 0.9 % Sodium Chloride 100 ML IVC SCH (18:00)
[2020-05-15 20:42] LABS: Potassium 6.2 mEq/L (3.5-5.1)
[2020-05-15] MEDS: D5% in 0.45% NACL 1,000 ML IVC PRN (21:36)
[2020-05-15] MEDS ORDERED: Sodium Bicarbonate 150 MEQ in Water for inj. (sterile) 1,000 ML IVC SCH (22:30)
[2020-05-15 22:39] LABS: ABG PCO2 < 13 mmHg (35-45); ABG PH 7.48 pH Units (7.32-7.45); ABG PO2 93 mmHg (85-104); Blood Gas FiO2 1.5 (1-15=lpm or21-100=%)
[2020-05-15 23:25] LABS: BUN/Creatinine Ratio 24 (6-26); Blood Urea Nitrogen 56 mg/dL (8-23); Calcium 8.9 mg/dL (8.6-10.3); Carbon Dioxide 9 mEq/L (23-29); Chloride 111 mEq/L (98-107); Glucose 216 mg/dL (70-105); Osmolality,Calculated 300 (280-300); Potassium 6.5 mEq/L (3.5-5.1); Sodium 134 mEq/L (136-145); Troponin I < 0.03 ng/mL (< 0.04); eGFR For African Americans 33 (> 60); eGFR For Non-African Americans 27 (> 60)
[2020-05-15] MEDS: Acetaminophen 325 MG TABLET PO PRN (23:47)
[2020-05-15] MEDS: *HR* Rivaroxaban 10 MG TABLET PO SCH (23:49)
[2020-05-16 00:47] LABS: Calcium 8.4 mg/dL (8.6-10.3); Potassium 5.6 mEq/L (3.5-5.1)
[2020-05-16 01:20] LABS: Bacteria,Urine Few per hpf (None-Few); Bilirubin,Urine Negative (Negative); Blood,Urine Moderate (Negative); Clarity,Urine Ex.Turbid (Clear); Color,Urine Yellow (Yellow); Glucose,Urine (UA) Normal (Normal); Ketones,Urine Trace mg/dL (Negative); Leukocyte Esterase,Urine Large (Negative); Mucus,Urine Few per lpf (None-Few); Nitrite,Urine Negative (Negative); Protein,Urine >=300 mg/dL (Neg-Trace); RBC,Urine 50-100 per hpf (0-3); Specific Gravity,Urine 1.014 (1.010-1.025); Urobilinogen,Urine Normal (Normal); WBC,Urine TNTC per hpf (0-3)
[2020-05-16] MEDS: D5% in 0.45% NACL 1,000 ML IVC PRN (04:46)
[2020-05-16 05:31] LABS: Basophils # 0.1 K/mcL (0.0-0.2); Basophils % 0.3 %; Eosinophils % 0.2 %; Hematocrit 30.9 % (37.5-50.1); Immature Granulocytes % 1.7 % (0-4); Lymphocytes # 2.1 K/mcL (0.6-4.6); Lymphocytes % 11.5 %; Mean Corpuscular Volume 96.9 fL (83.0-100.0); Mean Platelet Volume 10.2 fL (9.4-12.4); Monocytes % 10.5 %; Neutrophils # 14.1 K/mcL (1.6-8.9); Platelet Count 407 K/mcL (140-400); Red Blood Count 3.19 M/mcL (4.19-5.50); Red Cell Distribution Width 13.7 % (11.5-14.5); Segmented Neutrophils % 75.8 %; White Blood Count 18.6 K/mcL (4.3-11.1)
[2020-05-16 05:33] LABS: Hemoglobin 9.9 g/dL (12.9-16.9)
[2020-05-16 05:52] LABS: Calcium 8.3 mg/dL (8.6-10.3); Potassium 4.8 mEq/L (3.5-5.1)
[2020-05-16] MEDS ORDERED: levoFLOXacin 750 MG/150 ML 750 MG/150 ML BAG IVPB SCH ×2 (06:00→09:00)
[2020-05-16] MEDS: D5% in 0.45% NACL w KCl 20 MEQ/1,000 ML MLS IVC PRN (06:15)
[2020-05-16 06:52] LABS: Sodium, Urine 28.1 mEq/L
[2020-05-16 11:05] LABS: VBG HCO3 18 mEq/L (21-27); VBG PCO2 41 mmHg (41-51); VBG PH 7.26 pH Units (7.32-7.42); VBG PO2 171 mmHg (25-50)
[2020-05-16 11:52] LABS: Basophils # 0.1 K/mcL (0.0-0.2); Basophils % 0.5 %; Eosinophils # 0.1 K/mcL (0.0-0.6); Eosinophils % 0.8 %; Immature Granulocytes % 1.7 % (0-4); Lymphocytes # 1.9 K/mcL (0.6-4.6); Lymphocytes % 11.2 %; Mean Corpuscular HGB Conc 31.3 g/dL (31.6-35.5); Mean Corpuscular Hemoglobin 30.3 pg (28.0-33.3); Mean Platelet Volume 10.9 fL (9.4-12.4); Monocytes # 2.2 K/mcL (0.0-1.3); Monocytes % 12.8 %; Neutrophils # 12.3 K/mcL (1.6-8.9); Platelet Count 418 K/mcL (140-400); Red Cell Distribution Width 13.6 % (11.5-14.5); White Blood Count 16.9 K/mcL (4.3-11.1)
[2020-05-16] MEDS ORDERED: Acetaminophen 325 MG TABLET PO PRN ×2 (12:08→12:27)
[2020-05-16] MEDS: Acetaminophen 325 MG TABLET PO PRN (12:24)
[2020-05-16] MEDS ORDERED: Dextrose Gel 15 GM/37.5 ML TUBE PO PRN ×2 (14:04)
[2020-05-16 14:41] LABS: Calcium 8.1 mg/dL (8.6-10.3); Potassium 4.5 mEq/L (3.5-5.1)
[2020-05-16] MEDS: Insulin DETEMIR 100 UNIT/ML X5UNITS SUBQ SCH ×2 (14:52→20:54)
[2020-05-16] MEDS: Insulin LISPRO 300 UNITS/3 ML VIAL SUBQ SCH (17:17)
[2020-05-16] MEDS: 0.9 % Sodium Chloride 1,000 ML IVC SCH (18:30)
[2020-05-16] MEDS: *HR* Rivaroxaban 10 MG TABLET PO SCH (18:30)
[2020-05-16] MEDS ORDERED: tiZANidine 4 MG TABLET PO PRN (20:18)
[2020-05-16] MEDS ORDERED: Insulin LISPRO 300 UNITS/3 ML VIAL SUBQ SCH (21:00)
[2020-05-17] MEDS: 0.9 % Sodium Chloride 1,000 ML IVC SCH (04:08)
[2020-05-17 05:46] LABS: Basophils % 0.4 %; Eosinophils # 0.1 K/mcL (0.0-0.6); Eosinophils % 1.2 %; Hematocrit 29.6 % (37.5-50.1); Hemoglobin 9.7 g/dL (12.9-16.9); Immature Granulocytes % 1.9 % (0-4); Lymphocytes # 1.4 K/mcL (0.6-4.6); Lymphocytes % 13.6 %; Mean Corpuscular HGB Conc 32.8 g/dL (31.6-35.5); Mean Corpuscular Hemoglobin 31.2 pg (28.0-33.3); Mean Corpuscular Volume 95.2 fL (83.0-100.0); Monocytes # 1.3 K/mcL (0.0-1.3); Monocytes % 12.7 %; Neutrophils # 7.2 K/mcL (1.6-8.9); Platelet Count 369 K/mcL (140-400); Red Blood Count 3.11 M/mcL (4.19-5.50); Red Cell Distribution Width 13.9 % (11.5-14.5); Segmented Neutrophils % 70.2 %; White Blood Count 10.2 K/mcL (4.3-11.1)
[2020-05-17 06:04] LABS: Calcium 7.5 mg/dL (8.6-10.3); Potassium 4.3 mEq/L (3.5-5.1)
[2020-05-17] MEDS: Insulin LISPRO 300 UNITS/3 ML VIAL SUBQ SCH ×2 (07:27→12:26)
[2020-05-17] MEDS: Insulin DETEMIR 100 UNIT/ML X5UNITS SUBQ SCH (07:30)
[2020-05-17] MEDS ORDERED: (Ezetimibe [Zetia] 10 MG) PO SCH (09:00)
[2020-05-17 10:44] VITALS: BP 135/75
== END 2020-05-17 12:45 | disposition home or self-care (01) ==
LOC: 2NNU 10:46 → EMEROOARM 10:46 → SUATTDRO 13:37 → 2NNU 15:08
PROVIDERS: ADMIT Internal Medicine; ATTEND Internal Medicine

== ENCOUNTER 2020-06-07 16:26 | Observation (INO) ==
[2020-06-07] MEDS ORDERED: 0.9 % Sodium Chloride 500 ML IVC ONE ×2 (17:42→20:42)
[2020-06-07 18:01] LABS: Hematocrit 35.9 % (37.5-50.1); Hemoglobin 10.6 g/dL (12.9-16.9); Mean Corpuscular HGB Conc 29.5 g/dL (31.6-35.5); Mean Corpuscular Hemoglobin 29.5 pg (28.0-33.3); Platelet Count 320 K/mcL (140-400); Red Blood Count 3.59 M/mcL (4.19-5.50); Red Cell Distribution Width 13.4 % (11.5-14.5); White Blood Count 9.7 K/mcL (4.3-11.1)
[2020-06-07 18:26] LABS: BUN/Creatinine Ratio 27 (6-26); Blood Urea Nitrogen 46 mg/dL (8-23); Calcium 8.6 mg/dL (8.6-10.3); Carbon Dioxide 17 mEq/L (23-29); Chloride 112 mEq/L (98-107); Glucose 48 mg/dL (70-105); Magnesium 1.8 mg/dL (1.6-2.6); Osmolality,Calculated 293 (280-300); Potassium 5.7 mEq/L (3.5-5.1); Sodium 137 mEq/L (136-145); Troponin I < 0.03 ng/mL (< 0.04); eGFR For African Americans 47 (> 60); eGFR For Non-African Americans 39 (> 60)
[2020-06-07] MEDS ORDERED: Insulin Human Regular 10 UNIT in 0.9 % Sodium Chloride 10 ML IV ONE (18:28)
[2020-06-07] MEDS ORDERED: Albuterol Neb 1.25 MG/3 ML VIAL IH ONE (18:28)
[2020-06-07] MEDS ORDERED: *HR* Dextrose 50 % in Water (Vial) 50 ML VIAL IVP ONE (18:28)
[2020-06-07] MEDS: Calcium Gluconate 1gm/50mL 1 GM/50 ML BAG IVPB SCH ×2 (19:17→20:22)
[2020-06-07] MEDS ORDERED: Albuterol Neb 1.25 MG/3 ML VIAL ONE ×2 (19:35→19:36)
[2020-06-07 20:10] LABS: Calcium 8.5 mg/dL (8.6-10.3)
[2020-06-07] MEDS ORDERED: Naloxone 0.4 MG/ML INJ IVP PRN (21:15)
[2020-06-07] MEDS ORDERED: Ondansetron ODT 4 MG TAB.RAPDIS SL PRN (21:15)
[2020-06-07] MEDS ORDERED: Acetaminophen 325 MG TABLET PO PRN (21:15)
[2020-06-07] MEDS ORDERED: Calcium Gluconate 1gm/50mL 1 GM/50 ML BAG IVPB ONE (21:20)
[2020-06-07] MEDS ORDERED: Dextrose Gel 15 GM/37.5 ML TUBE PO PRN ×2 (21:21)
[2020-06-07] MEDS ORDERED: D5% in Water 1,000 ML IVC PRN (21:21)
[2020-06-07] MEDS ORDERED: *HR* Dextrose 50 % in Water (Vial) 50 ML VIAL IVP PRN (21:21)
[2020-06-07 22:01] LABS: Bilirubin,Urine Negative (Negative); Blood,Urine Small (Negative); Clarity,Urine Turbid (Clear); Color,Urine Light-Yellow (Yellow); Glucose,Urine (UA) Normal (Normal); Ketones,Urine Negative (Negative); Leukocyte Esterase,Urine Large (Negative); Mucus,Urine Few per lpf (None-Few); Nitrite,Urine Negative (Negative); PH,Urine 5.5 pH Units (5.0-8.0); Protein,Urine Trace mg/dL (Neg-Trace); RBC,Urine 30-50 per hpf (0-3); Specific Gravity,Urine 1.017 (1.010-1.025); Squamous Epithelial Cell,Urine Few per hpf (None-Few); Urobilinogen,Urine Normal (Normal); WBC,Urine 50-100 per hpf (0-3)
[2020-06-07] MEDS: 0.9 % Sodium Chloride 1,000 ML IVC SCH (22:09)
[2020-06-08] MEDS: cefTRIAXone 1,000 MG in 0.9 % Sodium Chloride Mini Bag 100 ML IVPB SCH ×2 (00:19→23:05)
[2020-06-08] MEDS ORDERED: *HR* HYDROcodone/Acet 5/325 mg TABLET PO PRN (00:30)
[2020-06-08] MEDS ORDERED: tiZANidine 4 MG TABLET PO PRN (00:30)
[2020-06-08 02:22] LABS: Basophils # 0.1 K/mcL (0.0-0.2); Basophils % 0.4 %; Eosinophils % 0.3 %; Hematocrit 33.9 % (37.5-50.1); INR 1.3; Immature Granulocytes % 0.4 % (0-4); Lymphocytes # 1.4 K/mcL (0.6-4.6); Lymphocytes % 10.6 %; Mean Corpuscular HGB Conc 29.5 g/dL (31.6-35.5); Mean Corpuscular Hemoglobin 30.1 pg (28.0-33.3); Mean Corpuscular Volume 102.1 fL (83.0-100.0); Mean Platelet Volume 11.7 fL (9.4-12.4); Monocytes # 0.9 K/mcL (0.0-1.3); Monocytes % 6.7 %; Neutrophils # 10.4 K/mcL (1.6-8.9); Platelet Count 250 K/mcL (140-400); Prothrombin Time 14.5 Seconds (9.4-12.1); Red Blood Count 3.32 M/mcL (4.19-5.50); Red Cell Distribution Width 13.7 % (11.5-14.5); Segmented Neutrophils % 81.6 %; White Blood Count 12.7 K/mcL (4.3-11.1)
[2020-06-08 02:36] LABS: Albumin 3.3 g/dL (3.5-5.7); Bilirubin,Total 0.3 mg/dL (0.3-1.0); Globulin 3.4 g/dL (2.4-3.5); Magnesium 1.7 mg/dL (1.6-2.6); Phosphorous 5.1 mg/dL (2.7-4.5); Potassium 5.6 mEq/L (3.5-5.1); Total Protein 6.7 g/dL (6.4-8.9)
[2020-06-08] MEDS ORDERED: Sodium Bicarbonate 50 MEQ/50 ML VIAL IVP ONE (07:43)
[2020-06-08] MEDS ORDERED: D5% in Water 1,000 ML IVC PRN (07:48)
[2020-06-08] MEDS ORDERED: *HR* Dextrose 50 % in Water (Vial) 50 ML VIAL IVP PRN (07:48)
[2020-06-08] MEDS ORDERED: Dextrose Gel 15 GM/37.5 ML TUBE PO PRN ×2 (07:48)
[2020-06-08] MEDS: (Ezetimibe [Zetia] 10 MG) PO SCH (08:08)
[2020-06-08] MEDS: Insulin LISPRO 300 UNITS/3 ML VIAL SUBQ SCH ×3 (08:31→16:52)
[2020-06-08] MEDS: *HR* Rivaroxaban 10 MG TABLET PO SCH (08:31)
[2020-06-08] MEDS: Insulin DETEMIR 100 UNIT/ML X5UNITS SUBQ SCH ×2 (08:31→20:30)
[2020-06-08] MEDS: 0.9 % Sodium Chloride 1,000 ML IVC SCH (08:37)
[2020-06-08] MEDS: Sodium Bicarbonate 75 MEQ in 0.45 % Sodium Chloride 1,000 ML IVC SCH ×2 (09:19→23:05)
[2020-06-08 10:41] LABS: Calcium 8.3 mg/dL (8.6-10.3); Magnesium 1.6 mg/dL (1.6-2.6); Phosphorous 3.7 mg/dL (2.7-4.5); Potassium 5.2 mEq/L (3.5-5.1)
[2020-06-08] MEDS ORDERED: Insulin LISPRO 300 UNITS/3 ML VIAL SUBQ SCH (21:00)
[2020-06-09 06:08] LABS: Basophils % 0.3 %; Eosinophils # 0.2 K/mcL (0.0-0.6); Eosinophils % 2.4 %; Hematocrit 28.5 % (37.5-50.1); Hemoglobin 8.8 g/dL (12.9-16.9); Immature Granulocytes % 0.5 % (0-4); Mean Corpuscular HGB Conc 30.9 g/dL (31.6-35.5); Mean Corpuscular Hemoglobin 29.7 pg (28.0-33.3); Mean Corpuscular Volume 96.3 fL (83.0-100.0); Mean Platelet Volume 10.4 fL (9.4-12.4); Monocytes # 0.8 K/mcL (0.0-1.3); Monocytes % 8.5 %; Neutrophils # 6.4 K/mcL (1.6-8.9); Platelet Count 271 K/mcL (140-400); Red Blood Count 2.96 M/mcL (4.19-5.50); Red Cell Distribution Width 13.7 % (11.5-14.5); Segmented Neutrophils % 67.3 %; White Blood Count 9.5 K/mcL (4.3-11.1)
[2020-06-09 06:34] LABS: BUN/Creatinine Ratio 25 (6-26); Blood Urea Nitrogen 32 mg/dL (8-23); Calcium 7.8 mg/dL (8.6-10.3); Carbon Dioxide 18 mEq/L (23-29); Chloride 115 mEq/L (98-107); Glucose 40 mg/dL (70-105); Magnesium 1.4 mg/dL (1.6-2.6); Osmolality,Calculated 296 (280-300); Phosphorous 3.5 mg/dL (2.7-4.5); Potassium 3.9 mEq/L (3.5-5.1); Sodium 141 mEq/L (136-145); eGFR For African Americans > 60 (> 60); eGFR For Non-African Americans 54 (> 60)
[2020-06-09] MEDS: (Ezetimibe [Zetia] 10 MG) PO SCH (09:15)
[2020-06-09] MEDS: *HR* Rivaroxaban 10 MG TABLET PO SCH (09:15)
[2020-06-09 10:56] VITALS: BP 163/84
== END 2020-06-09 14:15 | disposition home or self-care (01) ==
LOC: EMEROOARM 16:26 → 3BNU 16:26 → SUATTDRO 20:56 → 3BNU 22:34
PROVIDERS: ADMIT Student in an Organized Health Care Education/Training Program; ATTEND Internal Medicine

== ENCOUNTER 2020-11-20 16:13 | Inpatient (IN) ==
[2020-11-20 17:45] LABS: Basophils # 0.1 K/mcL (0.0-0.2); Basophils % 0.6 %; Eosinophils # 0.3 K/mcL (0.0-0.6); Eosinophils % 3.5 %; Hematocrit 31.8 % (37.5-50.1); Hemoglobin 9.8 g/dL (12.9-16.9); Immature Granulocytes % 0.2 % (0-4); Lymphocytes # 2.6 K/mcL (0.6-4.6); Lymphocytes % 31.1 %; Mean Corpuscular HGB Conc 30.8 g/dL (31.6-35.5); Mean Corpuscular Hemoglobin 30.9 pg (28.0-33.3); Mean Corpuscular Volume 100.3 fL (83.0-100.0); Mean Platelet Volume 11.3 fL (9.4-12.4); Monocytes # 0.6 K/mcL (0.0-1.3); Monocytes % 7.5 %; Neutrophils # 4.8 K/mcL (1.6-8.9); Platelet Count 280 K/mcL (140-400); Red Blood Count 3.17 M/mcL (4.19-5.50); Red Cell Distribution Width 14.5 % (11.5-14.5); Segmented Neutrophils % 57.1 %; White Blood Count 8.4 K/mcL (4.3-11.1)
[2020-11-20 18:37] LABS: Bilirubin,Urine Negative (Negative); Blood,Urine Large (Negative); Clarity,Urine Clear (Clear); Color,Urine Light-Yellow (Yellow); Glucose,Urine (UA) Normal (Normal); Ketones,Urine Negative (Negative); Leukocyte Esterase,Urine Large (Negative); Nitrite,Urine Negative (Negative); Protein,Urine 30 mg/dL (Neg-Trace); RBC,Urine 50-100 per hpf (0-3); Specific Gravity,Urine 1.011 (1.010-1.025); Squamous Epithelial Cell,Urine Few per hpf (None-Few); Urobilinogen,Urine Normal (Normal); WBC,Urine TNTC per hpf (0-3)
[2020-11-20 20:15] LABS: Alanine Aminotransferase 3 Units/L (7-52); Albumin 2.7 g/dL (3.5-5.7); Albumin/Globulin Ratio 1.1 (1.1-2.2); Alkaline Phosphatase 106 Units/L (34-104); Aspartate Amino Transferase 10 Units/L (13-39); BUN/Creatinine Ratio 12 (6-26); Bilirubin,Direct 0.1 mg/dL (0.0-0.2); Bilirubin,Indirect 0.3 mg/dL (0.0-1.0); Bilirubin,Total 0.4 mg/dL (0.3-1.0); Blood Urea Nitrogen 18 mg/dL (8-23); Calcium 7.8 mg/dL (8.6-10.3); Carbon Dioxide 27 mEq/L (23-29); Chloride 109 mEq/L (98-107); Globulin 2.4 g/dL (2.4-3.5); Glucose 180 mg/dL (70-105); Osmolality,Calculated 296 (280-300); Potassium 3.9 mEq/L (3.5-5.1); Sodium 140 mEq/L (136-145); Total Protein 5.1 g/dL (6.4-8.9); Troponin I < 0.03 ng/mL (< 0.04); eGFR For African Americans 57 (> 60); eGFR For Non-African Americans 47 (> 60)
[2020-11-20] MEDS ORDERED: *HR* HYDROcodone/Acet 5/325 mg TABLET PO ONE (20:37)
[2020-11-20] MEDS: cefTRIAXone 1,000 MG in Water for inj. (sterile) 10 ML IVP SCH (20:52)
[2020-11-20] MEDS ORDERED: Naloxone 0.4 MG/ML INJ IVP PRN (22:24)
[2020-11-20] MEDS ORDERED: Ondansetron 4 MG/2 ML VIAL IVP PRN (22:24)
[2020-11-20] MEDS ORDERED: Melatonin 3 MG TABLET PO PRN (22:24)
[2020-11-21] MEDS: Acetaminophen 325 MG TABLET PO PRN ×3 (01:16→20:37)
[2020-11-21] MEDS ORDERED: *HR* Dextrose 50 % in Water (Vial) 50 ML VIAL IVP PRN (04:28)
[2020-11-21] MEDS ORDERED: Dextrose Gel 15 GM/37.5 ML TUBE PO PRN ×2 (04:28)
[2020-11-21] MEDS ORDERED: D5% in Water 1,000 ML IVC PRN (04:28)
[2020-11-21] MEDS ORDERED: Furosemide 20 MG/2 ML VIAL IVP ONE (04:33)
[2020-11-21 06:15] LABS: Hematocrit 28.5 % (37.5-50.1); Hemoglobin 8.7 g/dL (12.9-16.9); Mean Corpuscular HGB Conc 30.5 g/dL (31.6-35.5); Mean Corpuscular Hemoglobin 30.2 pg (28.0-33.3); Mean Platelet Volume 10.9 fL (9.4-12.4); Platelet Count 243 K/mcL (140-400); Red Blood Count 2.88 M/mcL (4.19-5.50); Red Cell Distribution Width 14.2 % (11.5-14.5); White Blood Count 8.4 K/mcL (4.3-11.1)
[2020-11-21 06:37] LABS: BUN/Creatinine Ratio 12 (6-26); Blood Urea Nitrogen 17 mg/dL (8-23); Calcium 7.8 mg/dL (8.6-10.3); Carbon Dioxide 23 mEq/L (23-29); Chloride 111 mEq/L (98-107); Glucose 157 mg/dL (70-105); Osmolality,Calculated 299 (280-300); Potassium 3.8 mEq/L (3.5-5.1); Sodium 142 mEq/L (136-145); eGFR For African Americans > 60 (> 60); eGFR For Non-African Americans 50 (> 60)
[2020-11-21] MEDS: Insulin LISPRO 300 UNITS/3 ML VIAL SUBQ SCH ×3 (07:57→16:22)
[2020-11-21] MEDS ORDERED: Perflutren Lipid Microsphere 1.3 ML in 0.9 % Sodium Chloride 8.7 ML IVP PRN (11:18)
[2020-11-21] MEDS ORDERED: *HR* HYDROcodone/Acet 5/325 mg TABLET PO ONE (11:46)
[2020-11-21] MEDS: *HR* Labetalol 20 MG/4 ML SYRINGE IVP PRN (13:06)
[2020-11-21] MEDS: *HR* Rivaroxaban 10 MG TABLET PO SCH (16:22)
[2020-11-21] MEDS: cefTRIAXone 1,000 MG in Water for inj. (sterile) 10 ML IVP SCH (20:36)
[2020-11-21] MEDS ORDERED: cefTRIAXone 1,000 MG in 0.9 % Sodium Chloride Mini Bag 100 ML IVPB SCH (23:00)
[2020-11-22 05:40] LABS: Basophils # 0.1 K/mcL (0.0-0.2); Basophils % 0.7 %; Eosinophils # 0.2 K/mcL (0.0-0.6); Hematocrit 28.6 % (37.5-50.1); Immature Granulocytes % 0.3 % (0-4); Lymphocytes # 2.3 K/mcL (0.6-4.6); Lymphocytes % 31.8 %; Mean Corpuscular HGB Conc 31.5 g/dL (31.6-35.5); Mean Corpuscular Hemoglobin 30.5 pg (28.0-33.3); Mean Corpuscular Volume 96.9 fL (83.0-100.0); Mean Platelet Volume 11.2 fL (9.4-12.4); Monocytes # 0.7 K/mcL (0.0-1.3); Monocytes % 9.5 %; Platelet Count 261 K/mcL (140-400); Red Blood Count 2.95 M/mcL (4.19-5.50); Red Cell Distribution Width 14.4 % (11.5-14.5); Segmented Neutrophils % 54.7 %; White Blood Count 7.4 K/mcL (4.3-11.1)
[2020-11-22 07:26] LABS: Potassium 3.9 mEq/L (3.5-5.1)
[2020-11-22] MEDS: Insulin LISPRO 300 UNITS/3 ML VIAL SUBQ SCH ×3 (07:43→16:55)
[2020-11-22] MEDS: amLODIPine 5 MG TABLET PO SCH (07:44)
[2020-11-22] MEDS: (Doxepin Hcl 10 MG Capsule) PO SCH (07:44)
[2020-11-22] MEDS: Ascorbic Acid 500 MG TABLET PO SCH (07:44)
[2020-11-22] MEDS: Finasteride 5 MG TABLET PO SCH (07:44)
[2020-11-22] MEDS: *HR* Rivaroxaban 10 MG TABLET PO SCH (07:44)
[2020-11-22] MEDS ORDERED: NON-FORMULARY MEDICATION 1 EACH EACH (Ezetimibe [Zetia] 10 MG Tablet) PO SCH (09:00)
[2020-11-22] MEDS: *HR* HYDROcodone/Acet 5/325 mg TABLET PO PRN (14:45)
[2020-11-22] MEDS: cefTRIAXone 1,000 MG in Water for inj. (sterile) 10 ML IVP SCH (21:39)
[2020-11-23] MEDS: *HR* HYDROcodone/Acet 5/325 mg TABLET PO PRN ×3 (02:24→22:01)
[2020-11-23 04:33] LABS: Basophils # 0.1 K/mcL (0.0-0.2); Basophils % 0.7 %; Eosinophils # 0.3 K/mcL (0.0-0.6); Eosinophils % 3.3 %; Hematocrit 25.4 % (37.5-50.1); Hemoglobin 7.9 g/dL (12.9-16.9); Immature Granulocytes % 0.5 % (0-4); Lymphocytes # 2.8 K/mcL (0.6-4.6); Lymphocytes % 32.4 %; Mean Corpuscular HGB Conc 31.1 g/dL (31.6-35.5); Mean Corpuscular Hemoglobin 30.4 pg (28.0-33.3); Mean Corpuscular Volume 97.7 fL (83.0-100.0); Mean Platelet Volume 11.3 fL (9.4-12.4); Monocytes # 0.9 K/mcL (0.0-1.3); Monocytes % 9.8 %; Neutrophils # 4.6 K/mcL (1.6-8.9); Platelet Count 227 K/mcL (140-400); Red Cell Distribution Width 14.5 % (11.5-14.5); Segmented Neutrophils % 53.3 %; White Blood Count 8.7 K/mcL (4.3-11.1)
[2020-11-23 04:57] LABS: BUN/Creatinine Ratio 12 (6-26); Blood Urea Nitrogen 17 mg/dL (8-23); Calcium 7.7 mg/dL (8.6-10.3); Carbon Dioxide 24 mEq/L (23-29); Chloride 111 mEq/L (98-107); Glucose 206 mg/dL (70-105); Osmolality,Calculated 302 (280-300); Potassium 4.1 mEq/L (3.5-5.1); Sodium 142 mEq/L (136-145); eGFR For African Americans > 60 (> 60); eGFR For Non-African Americans 50 (> 60)
[2020-11-23] MEDS: Ascorbic Acid 500 MG TABLET PO SCH (07:51)
[2020-11-23] MEDS: *HR* Rivaroxaban 10 MG TABLET PO SCH (07:51)
[2020-11-23] MEDS: amLODIPine 5 MG TABLET PO SCH (07:51)
[2020-11-23] MEDS: Finasteride 5 MG TABLET PO SCH (07:52)
[2020-11-23] MEDS: Insulin LISPRO 300 UNITS/3 ML VIAL SUBQ SCH ×4 (07:52→21:31)
[2020-11-23] MEDS: (Doxepin Hcl 10 MG Capsule) PO SCH (07:56)
[2020-11-23] MEDS: cefTRIAXone 1,000 MG in Water for inj. (sterile) 10 ML IVP SCH (19:56)
[2020-11-24 02:42] LABS: Basophils # 0.1 K/mcL (0.0-0.2); Basophils % 0.8 %; Eosinophils # 0.3 K/mcL (0.0-0.6); Eosinophils % 4.4 %; Hematocrit 26.2 % (37.5-50.1); Hemoglobin 7.9 g/dL (12.9-16.9); Immature Granulocytes % 0.3 % (0-4); Lymphocytes # 2.6 K/mcL (0.6-4.6); Lymphocytes % 35.8 %; Mean Corpuscular HGB Conc 30.2 g/dL (31.6-35.5); Mean Corpuscular Volume 99.6 fL (83.0-100.0); Mean Platelet Volume 11.1 fL (9.4-12.4); Monocytes # 0.6 K/mcL (0.0-1.3); Monocytes % 8.2 %; Neutrophils # 3.7 K/mcL (1.6-8.9); Platelet Count 236 K/mcL (140-400); Red Blood Count 2.63 M/mcL (4.19-5.50); Red Cell Distribution Width 14.5 % (11.5-14.5); Segmented Neutrophils % 50.5 %; White Blood Count 7.3 K/mcL (4.3-11.1)
[2020-11-24 02:50] LABS: Calcium 7.7 mg/dL (8.6-10.3); Potassium 4.1 mEq/L (3.5-5.1)
[2020-11-24 04:11] LABS: Estimated Average Glucose 143 mg/dl; Hemoglobin A1C 6.6 %
[2020-11-24] MEDS: *HR* HYDROcodone/Acet 5/325 mg TABLET PO PRN ×2 (06:15→15:09)
[2020-11-24] MEDS: amLODIPine 5 MG TABLET PO SCH (09:27)
[2020-11-24] MEDS: Ascorbic Acid 500 MG TABLET PO SCH (09:27)
[2020-11-24] MEDS: *HR* Rivaroxaban 10 MG TABLET PO SCH (09:28)
[2020-11-24] MEDS: (Doxepin Hcl 10 MG Capsule) PO SCH (09:28)
[2020-11-24] MEDS: Finasteride 5 MG TABLET PO SCH (09:28)
[2020-11-24] MEDS: Insulin LISPRO 300 UNITS/3 ML VIAL SUBQ SCH ×3 (09:29→15:14)
[2020-11-24] MEDS: Haloperidol Lactate 5 MG/ML VIAL IVP ONE ×2 (11:46→14:02)
[2020-11-24] MEDS ORDERED: Haloperidol Lactate 5 MG/ML VIAL IVP PRN (14:03)
[2020-11-24] MEDS: QUEtiapine Fumarate 25 MG TABLET PO SCH (21:23)
[2020-11-24] MEDS: cefTRIAXone 1,000 MG in Water for inj. (sterile) 10 ML IVP SCH (21:24)
[2020-11-25] MEDS: *HR* Labetalol 20 MG/4 ML SYRINGE IVP PRN (03:28)
[2020-11-25 06:17] LABS: Basophils % 0.4 %; Eosinophils # 0.3 K/mcL (0.0-0.6); Eosinophils % 3.6 %; Hematocrit 27.1 % (37.5-50.1); Hemoglobin 8.5 g/dL (12.9-16.9); Immature Granulocytes % 0.3 % (0-4); Lymphocytes # 2.3 K/mcL (0.6-4.6); Lymphocytes % 31.5 %; Mean Corpuscular HGB Conc 31.4 g/dL (31.6-35.5); Mean Corpuscular Volume 98.9 fL (83.0-100.0); Mean Platelet Volume 10.6 fL (9.4-12.4); Monocytes # 0.7 K/mcL (0.0-1.3); Monocytes % 9.3 %; Neutrophils # 4.1 K/mcL (1.6-8.9); Platelet Count 251 K/mcL (140-400); Red Blood Count 2.74 M/mcL (4.19-5.50); Red Cell Distribution Width 14.5 % (11.5-14.5); Segmented Neutrophils % 54.9 %; White Blood Count 7.4 K/mcL (4.3-11.1)
[2020-11-25 06:34] LABS: Calcium 7.9 mg/dL (8.6-10.3); Potassium 3.9 mEq/L (3.5-5.1)
[2020-11-25] MEDS: amLODIPine 5 MG TABLET PO SCH (08:21)
[2020-11-25] MEDS: Ascorbic Acid 500 MG TABLET PO SCH (08:22)
[2020-11-25] MEDS: *HR* Rivaroxaban 10 MG TABLET PO SCH (08:22)
[2020-11-25] MEDS: *HR* HYDROcodone/Acet 5/325 mg TABLET PO PRN ×2 (08:22→16:48)
[2020-11-25] MEDS: Finasteride 5 MG TABLET PO SCH (08:22)
[2020-11-25] MEDS: Insulin LISPRO 300 UNITS/3 ML VIAL SUBQ SCH ×5 (08:23→20:09)
[2020-11-25] MEDS: (Doxepin Hcl 10 MG Capsule) PO SCH (08:31)
[2020-11-25] MEDS: QUEtiapine Fumarate 25 MG TABLET PO SCH (20:12)
[2020-11-26 05:31] LABS: Basophils % 0.6 %; Eosinophils # 0.3 K/mcL (0.0-0.6); Eosinophils % 3.8 %; Hematocrit 25.5 % (37.5-50.1); Hemoglobin 8.2 g/dL (12.9-16.9); Immature Granulocytes % 0.3 % (0-4); Lymphocytes # 2.1 K/mcL (0.6-4.6); Lymphocytes % 29.5 %; Mean Corpuscular HGB Conc 32.2 g/dL (31.6-35.5); Mean Corpuscular Hemoglobin 31.1 pg (28.0-33.3); Mean Corpuscular Volume 96.6 fL (83.0-100.0); Mean Platelet Volume 10.6 fL (9.4-12.4); Monocytes # 0.6 K/mcL (0.0-1.3); Monocytes % 7.9 %; Neutrophils # 4.2 K/mcL (1.6-8.9); Platelet Count 261 K/mcL (140-400); Red Blood Count 2.64 M/mcL (4.19-5.50); Red Cell Distribution Width 14.4 % (11.5-14.5); Segmented Neutrophils % 57.9 %; White Blood Count 7.2 K/mcL (4.3-11.1)
[2020-11-26 05:49] LABS: BUN/Creatinine Ratio 17 (6-26); Blood Urea Nitrogen 24 mg/dL (8-23); Calcium 7.9 mg/dL (8.6-10.3); Carbon Dioxide 25 mEq/L (23-29); Chloride 109 mEq/L (98-107); Glucose 206 mg/dL (70-105); Osmolality,Calculated 300 (280-300); Potassium 4.1 mEq/L (3.5-5.1); Sodium 140 mEq/L (136-145); eGFR For African Americans > 60 (> 60); eGFR For Non-African Americans 50 (> 60)
[2020-11-26] MEDS: Insulin LISPRO 300 UNITS/3 ML VIAL SUBQ SCH ×4 (08:52→20:41)
[2020-11-26] MEDS: Finasteride 5 MG TABLET PO SCH (08:54)
[2020-11-26] MEDS: *HR* Rivaroxaban 10 MG TABLET PO SCH (08:54)
[2020-11-26] MEDS: amLODIPine 5 MG TABLET PO SCH (08:54)
[2020-11-26] MEDS: *HR* HYDROcodone/Acet 5/325 mg TABLET PO PRN ×2 (08:54→20:40)
[2020-11-26] MEDS: Ascorbic Acid 500 MG TABLET PO SCH (08:54)
[2020-11-26] MEDS: QUEtiapine Fumarate 25 MG TABLET PO SCH (20:40)
[2020-11-27] MEDS: Ascorbic Acid 500 MG TABLET PO SCH (08:46)
[2020-11-27] MEDS: amLODIPine 5 MG TABLET PO SCH (08:48)
[2020-11-27] MEDS: Finasteride 5 MG TABLET PO SCH (08:48)
[2020-11-27] MEDS: *HR* Rivaroxaban 10 MG TABLET PO SCH (08:49)
[2020-11-27] MEDS: Insulin LISPRO 300 UNITS/3 ML VIAL SUBQ SCH ×4 (08:52→22:20)
[2020-11-27 20:19] LABS: Adenovirus Not Detected (Not Detect); Bordetella Pertussis Not Detected (Not Detect); Chlamydophila pneumoniae Not Detected (Not Detect); Coronavirus 229E Not Detected (Not Detect); Coronavirus HKU1 Not Detected (Not Detect); Coronavirus NL63 Not Detected (Not Detect); Coronavirus OC43 Not Detected (Not Detect); Human Metapneumovirus Not Detected (Not Detect); Human Rhinovirus/Enterovirus Not Detected (Not Detect); Influenza A Subtype 2009 H1 Not Detected (Not Detect); Influenza B Not Detected (Not Detect); Mycoplasma pneumoniae Not Detected (Not Detect); Parainfluenza Virus 1 Not Detected (Not Detect); Parainfluenza Virus 2 Not Detected (Not Detect); Parainfluenza Virus 3 Not Detected (Not Detect); Parainfluenza Virus 4 Not Detected (Not Detect); Respiratory Syncytial Virus Not Detected (Not Detect); SARS-CoV-2 Not Detected (Not Detect)
[2020-11-27] MEDS: QUEtiapine Fumarate 25 MG TABLET PO SCH (22:18)
[2020-11-27] MEDS: *HR* HYDROcodone/Acet 5/325 mg TABLET PO PRN (22:19)
[2020-11-28 06:55] VITALS: BP 166/93; PULSE 100; TEMP 97.7; O2SAT 97
[2020-11-28] MEDS: *HR* HYDROcodone/Acet 5/325 mg TABLET PO PRN (07:55)
[2020-11-28] MEDS: amLODIPine 5 MG TABLET PO SCH (07:55)
[2020-11-28] MEDS: *HR* Rivaroxaban 10 MG TABLET PO SCH (07:56)
[2020-11-28] MEDS: Ascorbic Acid 500 MG TABLET PO SCH (07:56)
[2020-11-28] MEDS: Finasteride 5 MG TABLET PO SCH (07:56)
[2020-11-28] MEDS: Insulin LISPRO 300 UNITS/3 ML VIAL SUBQ SCH (07:57)
== END 2020-11-28 08:20 | DRG 689 ==
LOC: EMEROOARM 16:13 → 3ANU 16:13 → SUATTDRO 22:08 → 3ANU 23:20 → SUATTDRO 11-22 17:58 → 3BNU 11-28 00:40
PROVIDERS: ADMIT Internal Medicine; ATTEND Internal Medicine

== ENCOUNTER 2021-01-14 21:05 | Inpatient (IN) ==
[2021-01-14] MEDS ORDERED: Azithromycin 500 MG in 0.9 % Sodium Chloride 250 ML IVPB ONE (21:13)
[2021-01-14] MEDS ORDERED: cefTRIAXone 1,000 MG in Water for inj. (sterile) 10 ML IVP ONE (21:13)
[2021-01-14] MEDS ORDERED: 0.9 % Sodium Chloride 500 ML IVC ONE (21:15)
[2021-01-14 22:04] LABS: VBG HCO3 15 mEq/L (21-27); VBG PCO2 32 mmHg (41-51); VBG PH 7.27 pH Units (7.32-7.42); VBG PO2 41 mmHg (25-50)
[2021-01-14 22:04] LABS: Basophils % 0.2 %; Eosinophils % 0.3 %; Hematocrit 29.8 % (37.5-50.1); Hemoglobin 9.6 g/dL (12.9-16.9); Immature Granulocytes % 0.4 % (0-4); Lymphocytes # 0.1 K/mcL (0.6-4.6); Lymphocytes % 1.3 %; Mean Corpuscular HGB Conc 32.2 g/dL (31.6-35.5); Mean Corpuscular Hemoglobin 29.6 pg (28.0-33.3); Mean Platelet Volume 11.4 fL (9.4-12.4); Monocytes # 0.5 K/mcL (0.0-1.3); Monocytes % 4.9 %; Platelet Count 179 K/mcL (140-400); Red Blood Count 3.24 M/mcL (4.19-5.50); Red Cell Distribution Width 16.2 % (11.5-14.5); Segmented Neutrophils % 92.9 %; White Blood Count 10.4 K/mcL (4.3-11.1)
[2021-01-14] MEDS: 0.9 % Sodium Chloride 1,000 ML IVC SCH ×2 (22:08→23:43)
[2021-01-14 22:13] LABS: INR 1.8; Prothrombin Time 20.8 Seconds (9.4-12.1)
[2021-01-14 22:16] LABS: Activated Partial Thrombo Time 37.3 Seconds (26.0-36.0)
[2021-01-14] MEDS ORDERED: methylPREDNISolone 125 MG/2 ML VIAL IVP ONE (22:31)
[2021-01-14 22:37] LABS: Dohle Bodies Present (Not Present)
[2021-01-14 22:38] LABS: Platelet Estimate Normal (Normal)
[2021-01-14 22:40] LABS: Neutrophils # 13.2 K/mcL (1.6-8.9)
[2021-01-14 22:43] LABS: Alanine Aminotransferase 5 Units/L (7-52); Albumin 2.9 g/dL (3.5-5.7); Albumin/Globulin Ratio 0.9 (1.1-2.2); Alkaline Phosphatase 101 Units/L (34-104); Aspartate Amino Transferase 11 Units/L (13-39); BUN/Creatinine Ratio 12 (6-26); Bilirubin,Direct 0.2 mg/dL (0.0-0.2); Bilirubin,Indirect 0.4 mg/dL (0.0-1.0); Bilirubin,Total 0.6 mg/dL (0.3-1.0); Blood Urea Nitrogen 71 mg/dL (8-23); Calcium 7.8 mg/dL (8.6-10.3); Carbon Dioxide 13 mEq/L (23-29); Chloride 103 mEq/L (98-107); Globulin 3.1 g/dL (2.4-3.5); Glucose 233 mg/dL (70-105); Lipase < 3 Units/L (11-82); Magnesium 1.7 mg/dL (1.6-2.6); Osmolality,Calculated 298 (280-300); Phosphorous 4.7 mg/dL (2.7-4.5); Potassium 5.3 mEq/L (3.5-5.1); Sodium 130 mEq/L (136-145); Troponin I < 0.03 ng/mL (< 0.04); eGFR For African Americans 12 (> 60); eGFR For Non-African Americans 10 (> 60)
[2021-01-14 22:58] LABS: Adenovirus Not Detected (Not Detect); Bordetella Pertussis Not Detected (Not Detect); Chlamydophila pneumoniae Not Detected (Not Detect); Coronavirus 229E Not Detected (Not Detect); Coronavirus HKU1 Not Detected (Not Detect); Coronavirus NL63 Not Detected (Not Detect); Coronavirus OC43 Not Detected (Not Detect); Human Metapneumovirus Not Detected (Not Detect); Human Rhinovirus/Enterovirus Not Detected (Not Detect); Influenza A Subtype 2009 H1 Not Detected (Not Detect); Influenza B Not Detected (Not Detect); Mycoplasma pneumoniae Not Detected (Not Detect); Parainfluenza Virus 1 Not Detected (Not Detect); Parainfluenza Virus 2 Not Detected (Not Detect); Parainfluenza Virus 3 Not Detected (Not Detect); Parainfluenza Virus 4 Not Detected (Not Detect); Respiratory Syncytial Virus Not Detected (Not Detect); SARS-CoV-2 Not Detected (Not Detect)
[2021-01-14] MEDS ORDERED: Lidocaine Jelly 11 ml Syringe TP ONE (23:08)
[2021-01-14] MEDS ORDERED: Ondansetron 4 MG/2 ML VIAL IVP PRN (23:48)
[2021-01-14] MEDS ORDERED: Naloxone 0.4 MG/ML INJ IVP PRN (23:48)
[2021-01-14] MEDS ORDERED: *HR* Dextrose 50 % in Water (Vial) 50 ML VIAL IVP PRN (23:55)
[2021-01-14] MEDS ORDERED: D5% in Water 1,000 ML IVC PRN (23:55)
[2021-01-14] MEDS ORDERED: Dextrose Gel 15 GM/37.5 ML TUBE PO PRN ×2 (23:55)
[2021-01-15] MEDS ORDERED: Ringers Solution, Lactated 1,000 ML IVC ONE (00:07)
[2021-01-15 00:58] LABS: Bilirubin,Urine Negative (Negative); Blood,Urine Large (Negative); Clarity,Urine Ex.Turbid (Clear); Color,Urine Light-Orange (Yellow); Glucose,Urine (UA) 50 mg/dL (Normal); Ketones,Urine Negative (Negative); Leukocyte Esterase,Urine Large (Negative); Nitrite,Urine Negative (Negative); PH,Urine 6.5 pH Units (5.0-8.0); Protein,Urine 100 mg/dL (Neg-Trace); RBC,Urine TNTC per hpf (0-3); Specific Gravity,Urine 1.013 (1.010-1.025); Urobilinogen,Urine Normal (Normal); WBC,Urine TNTC per hpf (0-3)
[2021-01-15] MEDS: Insulin LISPRO 300 UNITS/3 ML VIAL SUBQ SCH ×5 (02:39→19:43)
[2021-01-15 02:58] LABS: Protein/Creatinine Ratio,Urine 5.39 mg/mg (0.00-0.20); Sodium, Urine 87.7 mEq/L
[2021-01-15 06:34] LABS: Hematocrit 26.6 % (37.5-50.1); Hemoglobin 8.4 g/dL (12.9-16.9); Mean Corpuscular HGB Conc 31.6 g/dL (31.6-35.5); Mean Corpuscular Hemoglobin 29.5 pg (28.0-33.3); Mean Corpuscular Volume 93.3 fL (83.0-100.0); Mean Platelet Volume 11.5 fL (9.4-12.4); Platelet Count 154 K/mcL (140-400); Red Blood Count 2.85 M/mcL (4.19-5.50); Red Cell Distribution Width 16.6 % (11.5-14.5); White Blood Count 10.8 K/mcL (4.3-11.1)
[2021-01-15 06:42] LABS: INR 1.5; Prothrombin Time 16.6 Seconds (9.4-12.1)
[2021-01-15 06:44] LABS: Activated Partial Thrombo Time 33.9 Seconds (26.0-36.0)
[2021-01-15 07:08] LABS: Calcium 7.3 mg/dL (8.6-10.3); Magnesium 1.7 mg/dL (1.6-2.6); Phosphorous 5.8 mg/dL (2.7-4.5)
[2021-01-15 07:18] LABS: Lymphocytes # 0.2 K/mcL (0.6-4.6); Monocytes # 0.2 K/mcL (0.0-1.3); Neutrophils # 10.4 K/mcL (1.6-8.9); Platelet Estimate Normal (Normal)
[2021-01-15 07:19] LABS: Poikilocytosis 1+ (Not Present)
[2021-01-15 07:20] LABS: Dohle Bodies Present (Not Present)
[2021-01-15] MEDS: Azithromycin 250 MG TABLET PO SCH (07:49)
[2021-01-15] MEDS ORDERED: 0.9 % Sodium Chloride 1,000 ML IVC SCH (08:00)
[2021-01-15] MEDS ORDERED: Ringers Solution, Lactated 1,000 ML IVC SCH (08:00)
[2021-01-15] MEDS ORDERED: cefTRIAXone 1,000 MG in Water for inj. (sterile) 10 ML IVP SCH (09:00)
[2021-01-15] MEDS: Sodium Bicarbonate 75 MEQ in 0.45 % Sodium Chloride 1,000 ML IVC SCH ×2 (11:01→21:23)
[2021-01-15] MEDS: cefTRIAXone 2,000 MG in Water for inj. (sterile) 20 ML IVP SCH (12:18)
[2021-01-15] MEDS ORDERED: *HR* Dextrose 50 % in Water (Vial) 50 ML VIAL IVP PRN (15:08)
[2021-01-15] MEDS ORDERED: Dextrose Gel 15 GM/37.5 ML TUBE PO PRN ×2 (15:08)
[2021-01-16 07:44] LABS: Hematocrit 26.9 % (37.5-50.1); Hemoglobin 8.5 g/dL (12.9-16.9); Mean Corpuscular HGB Conc 31.6 g/dL (31.6-35.5); Mean Corpuscular Hemoglobin 29.7 pg (28.0-33.3); Mean Corpuscular Volume 94.1 fL (83.0-100.0); Mean Platelet Volume 11.2 fL (9.4-12.4); Nucleated Red Blood Cells 0.2 /100 WBC (0); Platelet Count 161 K/mcL (140-400); Red Blood Count 2.86 M/mcL (4.19-5.50); Red Cell Distribution Width 16.5 % (11.5-14.5); White Blood Count 12.3 K/mcL (4.3-11.1)
[2021-01-16 09:08] LABS: Lymphocytes # 0.3 K/mcL (0.6-4.6); Monocytes # 0.5 K/mcL (0.0-1.3); Neutrophils # 11.6 K/mcL (1.6-8.9)
[2021-01-16 09:09] LABS: Anisocytosis 1+ (Not Present); Platelet Estimate Normal (Normal); Toxic Granulation Present (Not Present)
[2021-01-16] MEDS: cefTRIAXone 2,000 MG in Water for inj. (sterile) 20 ML IVP SCH (09:38)
[2021-01-16] MEDS: Acetaminophen 325 MG TABLET PO PRN ×2 (09:38→15:08)
[2021-01-16] MEDS: Azithromycin 250 MG TABLET PO SCH (09:39)
[2021-01-16] MEDS: Insulin LISPRO 300 UNITS/3 ML VIAL SUBQ SCH ×4 (09:42→20:13)
[2021-01-16 13:06] LABS: Albumin 2.7 g/dL (3.5-5.7); Bilirubin,Total 0.3 mg/dL (0.3-1.0); Calcium 7.2 mg/dL (8.6-10.3); Globulin 2.8 g/dL (2.4-3.5); Potassium 5.3 mEq/L (3.5-5.1); Total Protein 5.5 g/dL (6.4-8.9)
[2021-01-16] MEDS: Insulin DETEMIR 100 UNIT/ML X5UNITS SUBQ SCH ×2 (13:42→20:18)
[2021-01-16] MEDS: Sodium Bicarbonate 75 MEQ in 0.45 % Sodium Chloride 1,000 ML IVC SCH (15:08)
[2021-01-17] MEDS: Sodium Bicarbonate 75 MEQ in 0.45 % Sodium Chloride 1,000 ML IVC SCH (00:24)
[2021-01-17 06:30] LABS: Basophils % 0.2 %; Eosinophils # 0.1 K/mcL (0.0-0.6); Eosinophils % 0.8 %; Hematocrit 26.6 % (37.5-50.1); Hemoglobin 8.9 g/dL (12.9-16.9); Immature Granulocytes % 1.7 % (0-4); Lymphocytes # 1.3 K/mcL (0.6-4.6); Lymphocytes % 11.9 %; Mean Corpuscular HGB Conc 33.5 g/dL (31.6-35.5); Mean Corpuscular Hemoglobin 29.7 pg (28.0-33.3); Mean Corpuscular Volume 88.7 fL (83.0-100.0); Mean Platelet Volume 10.9 fL (9.4-12.4); Monocytes # 0.9 K/mcL (0.0-1.3); Monocytes % 8.4 %; Neutrophils # 8.1 K/mcL (1.6-8.9); Nucleated Red Blood Cells 0.2 /100 WBC (0); Platelet Count 200 K/mcL (140-400); Red Cell Distribution Width 15.9 % (11.5-14.5); White Blood Count 10.6 K/mcL (4.3-11.1)
[2021-01-17 06:51] LABS: Potassium 4.4 mEq/L (3.5-5.1)
[2021-01-17] MEDS: Azithromycin 250 MG TABLET PO SCH (08:51)
[2021-01-17] MEDS: Insulin DETEMIR 100 UNIT/ML X5UNITS SUBQ SCH ×2 (08:52→21:12)
[2021-01-17] MEDS: Acetaminophen 325 MG TABLET PO PRN (09:26)
[2021-01-17] MEDS: cefTRIAXone 2,000 MG in Water for inj. (sterile) 20 ML IVP SCH (09:27)
[2021-01-17] MEDS ORDERED: Sodium Bicarbonate 75 MEQ in 0.45 % Sodium Chloride 1,000 ML IVC SCH (09:30)
[2021-01-17] MEDS: Insulin LISPRO 300 UNITS/3 ML VIAL SUBQ SCH ×4 (09:38→20:59)
[2021-01-17] MEDS ORDERED: Sennosides/Docusate Sodium TABLET PO ONE (15:50)
[2021-01-17] MEDS: Sennosides/Docusate Sodium TABLET PO SCH (21:07)
[2021-01-18] MEDS: Insulin LISPRO 300 UNITS/3 ML VIAL SUBQ SCH ×4 (07:41→22:00)
[2021-01-18] MEDS ORDERED: tiZANidine 4 MG TABLET PO PRN (08:27)
[2021-01-18] MEDS ORDERED: *HR* Metoprolol 5 MG/5 ML VIAL IVP PRN (08:30)
[2021-01-18] MEDS ORDERED: *HR* Rivaroxaban 10 MG TABLET PO SCH (09:00)
[2021-01-18 09:11] LABS: Basophils % 0.2 %; Eosinophils # 0.1 K/mcL (0.0-0.6); Eosinophils % 1.2 %; Immature Granulocytes % 2.3 % (0-4); Lymphocytes # 1.2 K/mcL (0.6-4.6); Lymphocytes % 12.6 %; Mean Corpuscular HGB Conc 33.3 g/dL (31.6-35.5); Mean Corpuscular Hemoglobin 30.1 pg (28.0-33.3); Mean Corpuscular Volume 90.3 fL (83.0-100.0); Mean Platelet Volume 11.1 fL (9.4-12.4); Monocytes # 1.5 K/mcL (0.0-1.3); Monocytes % 15.2 %; Neutrophils # 6.6 K/mcL (1.6-8.9); Platelet Count 218 K/mcL (140-400); Red Blood Count 2.99 M/mcL (4.19-5.50); Red Cell Distribution Width 16.5 % (11.5-14.5); Segmented Neutrophils % 68.5 %; White Blood Count 9.6 K/mcL (4.3-11.1)
[2021-01-18 09:14] LABS: Calcium 7.2 mg/dL (8.6-10.3); Potassium 4.4 mEq/L (3.5-5.1)
[2021-01-18] MEDS: cefTRIAXone 2,000 MG in Water for inj. (sterile) 20 ML IVP SCH (10:02)
[2021-01-18] MEDS: Azithromycin 250 MG TABLET PO SCH (10:03)
[2021-01-18] MEDS: Multivit/Ca/Min/Fe/FA 1 TAB TABLET PO SCH (10:03)
[2021-01-18] MEDS: Sennosides/Docusate Sodium TABLET PO SCH (10:04)
[2021-01-18] MEDS: Finasteride 5 MG TABLET PO SCH (10:04)
[2021-01-18] MEDS: Insulin DETEMIR 100 UNIT/ML X5UNITS SUBQ SCH (10:04)
[2021-01-18] MEDS: 0.9 % Sodium Chloride 1,000 ML IVC SCH (12:10)
[2021-01-19] MEDS: 0.9 % Sodium Chloride 1,000 ML IVC SCH ×2 (01:27→15:56)
[2021-01-19] MEDS: Insulin LISPRO 300 UNITS/3 ML VIAL SUBQ SCH ×4 (08:34→21:20)
[2021-01-19] MEDS: Finasteride 5 MG TABLET PO SCH (08:54)
[2021-01-19] MEDS: cefTRIAXone 2,000 MG in Water for inj. (sterile) 20 ML IVP SCH (08:54)
[2021-01-19] MEDS: Multivit/Ca/Min/Fe/FA 1 TAB TABLET PO SCH (08:54)
[2021-01-19] MEDS: Insulin DETEMIR 100 UNIT/ML X5UNITS SUBQ SCH (09:08)
[2021-01-19 12:18] LABS: Calcium 7.3 mg/dL (8.6-10.3)
[2021-01-19] MEDS: *HR* Rivaroxaban 10 MG TABLET PO SCH (15:57)
[2021-01-19] MEDS ORDERED: *HR* Rivaroxaban 15 MG TABLET PO SCH (17:00)
[2021-01-20] MEDS: 0.9 % Sodium Chloride 1,000 ML IVC SCH ×2 (05:52→17:07)
[2021-01-20 06:18] LABS: Calcium 7.3 mg/dL (8.6-10.3); Potassium 4.6 mEq/L (3.5-5.1)
[2021-01-20] MEDS: Multivit/Ca/Min/Fe/FA 1 TAB TABLET PO SCH (09:24)
[2021-01-20] MEDS: Finasteride 5 MG TABLET PO SCH (09:25)
[2021-01-20] MEDS: Micafungin 100 MG in 0.9 % Sodium Chloride Mini Bag 100 ML IVPB SCH ×2 (11:40→11:54)
[2021-01-20] MEDS: cefTRIAXone 2,000 MG in Water for inj. (sterile) 20 ML IVP SCH (11:41)
[2021-01-20] MEDS: Insulin DETEMIR 100 UNIT/ML X5UNITS SUBQ SCH (11:50)
[2021-01-20] MEDS: Insulin LISPRO 300 UNITS/3 ML VIAL SUBQ SCH ×4 (11:54→21:17)
[2021-01-20] MEDS: *HR* Rivaroxaban 10 MG TABLET PO SCH (17:05)
[2021-01-21 07:55] LABS: Calcium 7.7 mg/dL (8.6-10.3); Potassium 5.1 mEq/L (3.5-5.1)
[2021-01-21] MEDS: 0.9 % Sodium Chloride 1,000 ML IVC SCH ×2 (08:30→08:51)
[2021-01-21] MEDS: Micafungin 100 MG in 0.9 % Sodium Chloride Mini Bag 100 ML IVPB SCH (08:30)
[2021-01-21] MEDS: Insulin DETEMIR 100 UNIT/ML X5UNITS SUBQ SCH (08:38)
[2021-01-21] MEDS: Finasteride 5 MG TABLET PO SCH (08:38)
[2021-01-21] MEDS: Insulin LISPRO 300 UNITS/3 ML VIAL SUBQ SCH ×4 (08:38→21:04)
[2021-01-21] MEDS: Multivit/Ca/Min/Fe/FA 1 TAB TABLET PO SCH (08:38)
[2021-01-21] MEDS: cefTRIAXone 2,000 MG in Water for inj. (sterile) 20 ML IVP SCH (08:51)
[2021-01-21] MEDS: *HR* Rivaroxaban 10 MG TABLET PO SCH (17:17)
[2021-01-22 04:14] LABS: Hematocrit 24.3 % (37.5-50.1); Hemoglobin 7.7 g/dL (12.9-16.9); Mean Corpuscular HGB Conc 31.7 g/dL (31.6-35.5); Mean Corpuscular Hemoglobin 29.1 pg (28.0-33.3); Mean Corpuscular Volume 91.7 fL (83.0-100.0); Mean Platelet Volume 10.2 fL (9.4-12.4); Platelet Count 276 K/mcL (140-400); Red Blood Count 2.65 M/mcL (4.19-5.50); Red Cell Distribution Width 16.1 % (11.5-14.5); White Blood Count 13.2 K/mcL (4.3-11.1)
[2021-01-22 04:32] LABS: Calcium 7.5 mg/dL (8.6-10.3); Potassium 4.7 mEq/L (3.5-5.1)
[2021-01-22] MEDS: Insulin LISPRO 300 UNITS/3 ML VIAL SUBQ SCH ×4 (08:46→21:26)
[2021-01-22] MEDS: Finasteride 5 MG TABLET PO SCH (08:47)
[2021-01-22] MEDS: Multivit/Ca/Min/Fe/FA 1 TAB TABLET PO SCH (08:47)
[2021-01-22] MEDS: Insulin DETEMIR 100 UNIT/ML X5UNITS SUBQ SCH (08:54)
[2021-01-22] MEDS: Micafungin 100 MG in 0.9 % Sodium Chloride Mini Bag 100 ML IVPB SCH (13:20)
[2021-01-22] MEDS: 0.9 % Sodium Chloride 1,000 ML IVC SCH (13:30)
[2021-01-22] MEDS: *HR* Rivaroxaban 10 MG TABLET PO SCH (17:26)
[2021-01-22] MEDS: Acetaminophen 325 MG TABLET PO PRN (22:12)
[2021-01-23] MEDS: Insulin LISPRO 300 UNITS/3 ML VIAL SUBQ SCH ×4 (07:48→20:26)
[2021-01-23] MEDS: Multivit/Ca/Min/Fe/FA 1 TAB TABLET PO SCH (08:05)
[2021-01-23] MEDS: Micafungin 100 MG in 0.9 % Sodium Chloride Mini Bag 100 ML IVPB SCH (08:06)
[2021-01-23] MEDS: Finasteride 5 MG TABLET PO SCH (08:06)
[2021-01-23] MEDS: 0.9 % Sodium Chloride 1,000 ML IVC SCH ×2 (08:12→08:15)
[2021-01-23] MEDS: Insulin DETEMIR 100 UNIT/ML X5UNITS SUBQ SCH (12:16)
[2021-01-23] MEDS: *HR* Rivaroxaban 10 MG TABLET PO SCH (15:56)
[2021-01-23 18:08] LABS: Influenza A PCR Negative (Negative); Influenza B PCR Negative (Negative); Resp. Syncytial Virus PCR Negative (Negative)
[2021-01-23 18:12] LABS: SARS-CoV-2 by PCR (In House) Negative (Negative)
[2021-01-23 22:55] VITALS: BP 161/74; PULSE 71; TEMP 98.1; O2SAT 98
== END 2021-01-24 06:15 | disposition other institution (70) | DRG 871 ==
LOC: 3ANU 21:05 → EMEROOARM 21:05 → 2NNU 01-15 01:33 → SUATTDRO 01-15 02:54 → 2NNU 01-15 03:20 → 3ANU 01-17 11:59 → 3BNU 01-23 04:44
PROVIDERS: ADMIT Internal Medicine; ATTEND Student in an Organized Health Care Education/Training Program